=== PATIENT | male | born 1985 | race African-American/Black ===

== ENCOUNTER 2020-06-29 03:27 | Inpatient (IN) | payer OTHER ==
[~2020-06-29] VITALS: Ht 167.6 cm; Wt 40.4 kg
--- NOTE | 2020-06-29 03:35 | NUR ---
TO ER BED 5 BIB EMS FROM [facility] C/O TACHYCARDIA 150'S. PT NONVERBAL, CHRONIC TRACHE ON RA 100%. PLACE PT ON CARDIAC MONITORING, CONTINUOUS POX. SKIN WARM, NONDIAPHORETIC. NOTED PT HR-152 SINUS TACHYCARDIA. PENDING ER MD CROWELL.
--- NOTE | 2020-06-29 03:36 | NUR ---
ER MD AT BEDSIDE TO EVAL PT WITH ORDERS RECEIVED.
--- NOTE | 2020-06-29 03:40 | NUR ---
Zak vega in [facility] - 06/29/20 at 0409 by BERNARDO STARTED SL 18G ON THE R HAND, BLOOD DRAWN AND SENT TO LAB.
--- NOTE | 2020-06-29 03:40 | NUR ---
STARTED SL 18G ON THE L HAND, BLOOD DRAWN AND SENT TO LAB.
[2020-06-29] MEDS ORDERED: IV NS 0.9% 1,000 ML BAG IV ONE (04:00)
[2020-06-29 04:21] LABS: BASOPHILS # (AUTO) 0.1 /CMM (0.0-0.2); BASOPHILS % (AUTO) 0.2 % (0.0-2.0); HEMATOCRIT 35 % (39-51); HEMOGLOBIN 10.8 g/dL (13.5-17.5); LYMPHOCYTES # (AUTO) 0.8 /CMM (0.8-4.8); LYMPHOCYTES % (AUTO) 2.6 % (20.0-44.0); MEAN CORPUSCULAR HGB CONC 31 g/dl (31.0-36.0); MEAN CORPUSCULAR VOLUME 82 fL (80-96); MONOCYTES # (AUTO) 0.9 /CMM (0.1-1.30); MONOCYTES % (AUTO) 3.2 % (2.0-12.0); NEUTROPHILS # (AUTO) 27.5 /CMM (1.8-8.9); PLATELET COUNT (AUTO) 768 /CMM (150-450); RED BLOOD CELL COUNT(AUTO) 4.22 MIL/uL (4.5-6.0); WHITE BLOOD COUNT (AUTO) 29.3 K/uL (4.3-11.0)
[2020-06-29 04:30] LABS: BILIRUBIN,URINE NEGATIVE (NEGATIVE); COLOR,URINE YELLOW (YELLOW); LEUKOCYTE ESTERASE ,URINE MODERATE (NEGATIVE); NITRITE, URINE POSITIVE (NEGATIVE); PROTEIN,URINE >=300 mg/dl (NEGATIVE); UGLUCOSE NEGATIVE (NEGATIVE)
[2020-06-29 04:42] LABS: CALCIUM, SERUM 9.6 mg/dL (8.5-10.1); CARBON DIOXIDE 26 mmol/L (21-32); CHLORIDE 100 mmol/L (98-107); CREATININE 1.1 mg/dL (0.6-1.3); GLUCOSE 93 mg/dL (74-106); SODIUM SERUM 137 mmol/L (136-145); UREA NITROGEN, BLOOD 36 mg/dL (7-18)
--- NOTE | 2020-06-29 04:42 | NUR ---
called for covid antigen swab
[2020-06-29 04:55] LABS: ALANINE AMINOTRANSFERASE 22 U/L (12-78); ALBUMIN 2.4 g/dL (3.4-5.0); ALKALINE PHOSPHATASE 179 U/L (46-116); ASPARTATE AMINOTRANSFERASE 23 U/L (15-37); B-TYPE NATRIURETIC PEPTIDE 309 PG/ML (0-125); BILIRUBIN,DIRECT 0.1 mg/dL (0.0-0.2); BILIRUBIN,TOTAL 0.4 mg/dL (0.2-1.0)
[2020-06-29 05:26] LABS: PH,URINE 8.5 (5.0-8.0)
[2020-06-29 05:28] LABS: BACTERIA,URINE Many /HPF (None Seen); SQUAMOUS EPITHELIAL CELL,UR Few /HPF (None Seen); TRIPLE PHOSPHATE CRYSTAL,UR Moderate /HPF (None Seen); WBC,URINE 21-50 /HPF (0-3)
[2020-06-29 05:29] LABS: URINE AMORPHOUS PHOSPHATES Moderate /HPF (None Seen)
--- NOTE | 2020-06-29 06:01 | NUR ---
CHUNG HAMILTON TALKING DR. MONACO REGARDING PT ADMISSION.
[2020-06-29] MEDS ORDERED: MORPHINE SULFATE INJ 2 MG/ML DISP.SYRIN IV PRN (07:00)
[2020-06-29] MEDS ORDERED: ONDANSETRON HCL/PF 4 MG/2 ML VIAL IVP PRN (07:00)
[2020-06-29] MEDS ORDERED: VANCOMYCIN 1 GM in IV D5W 250ml IV ONE (08:30)
[2020-06-29] MEDS ORDERED: ZOSYN IVPB 3.375 G in IV D5W 50ml IV ONE (08:30)
--- NOTE | 2020-06-29 08:53 | NUR ---
report given to jenaro wiley. awaiting transfer to floor.
[2020-06-29] MEDS ORDERED: IPRA12.9 IH (08:56)
[2020-06-29] MEDS ORDERED: CRAN3875 GT (08:56)
[2020-06-29] MEDS ORDERED: LEVE1000 GT (08:56)
[2020-06-29] MEDS ORDERED: DOCU-141 GT (08:56)
[2020-06-29] MEDS ORDERED: GLYC2TAB21 GT (08:56)
[2020-06-29] MEDS ORDERED: ACET325T53 GT (08:56)
[2020-06-29] MEDS ORDERED: DEXT15DR6 OP (08:56)
[2020-06-29] MEDS ORDERED: HEPA100D33 SQ (08:56)
[2020-06-29] MEDS ORDERED: AMIN887L GT (08:56)
[2020-06-29] MEDS ORDERED: OMEP20TA5 GT (08:56)
[2020-06-29] MEDS ORDERED: ASCO500C17 GT (08:56)
[2020-06-29] MEDS ORDERED: LACT-209 GT (08:56)
[2020-06-29] MEDS ORDERED: CHLO473M3 MM (08:56)
[2020-06-29] MEDS ORDERED: PANTOPRAZOLE 40 MG VIAL ONE (08:57)
[2020-06-29] MEDS ORDERED: PANTOPRAZOLE 40 MG VIAL IV SCH (09:00)
--- NOTE | 2020-06-29 09:15 | NUR ---
RECEIVED PATIENT IN BED. NO ACUTE DISTRESS NOTED. PATIENT OBTUNDED. PATIENT TRACH'D, BUT ONLY ON COOL AEROSOL, SATURATING WELL. PATIENT ON ENTRY LEVEL SALES CONSULTANT, ST NOTED WITH HR IN 170S. DR. ENAMORAOD CONTACTED, MADE AWARE. PATIENT TEMPERATURE 101, TYLENOL GIVEN. PATIENT FC INTACT, DRAINING TO GRAVITY. PATIENT G-TUBE INTACT, PATENT. PATIENT LAC #18 INTACT, PATENT. PATIENT SAFETY MEASURES MAINTAINED. WILL CONTINUE TO MONITOR. VS T 101, BP 107/52, HR 172, RR 24, O2 SATURATION 90%
[2020-06-29] MEDS: ACETAMINOPHEN 650 MG/20.3 ML UDC GT PRN (10:10)
[2020-06-29 10:13] VITALS: BP 107/52
[2020-06-29] MEDS ORDERED: Medication Not On Formulary EA (Omeprazole 20 MG) GT SCH (10:30)
[2020-06-29] MEDS: LEVETIRACETAM SOL (5 ML) 100 MG/ML UDC GT SCH ×2 (10:41→21:27)
[2020-06-29] MEDS: ENOXAPARIN SODIUM 40 MG/0.4 ML DISP.SYRIN SQ SCH (10:42)
[2020-06-29] MEDS ORDERED: ACETAMINOPHEN 650 MG/SUPP.RECT RC PRN (11:00)
[2020-06-29 12:00] VITALS: BP 103/56
[2020-06-29] MEDS: PIPERACILLIN /TAZOBACTAM 3.375 G in IV D5W 50 ML IV SCH ×2 (12:32→17:26)
[2020-06-29] MEDS: IV D5/ 0.9% NACL 1,000 ML IV PRN (12:32)
[2020-06-29] MEDS ORDERED: IV NS 0.9% 1,000 ML IV ONE (14:30)
[2020-06-29] MEDS ORDERED: POLYVINYL ALCOHOL 15 ML BOTTLE OP PRN (15:30)
--- NOTE | 2020-06-29 15:45 | NUR ---
PATIENT SBP 96 AFTER 500ML BOLUS. DUYEN MIRANDA NP NOTIFIED. ORDERED ANOTHER 500ML BOLUS. CURRENTLY RUNNING
--- NOTE | 2020-06-29 16:57 | NUR ---
PATIENT SBP IN LOW 80S. DUYEN MIRANDA NP NOTIFIED AND IN ROOM. ORDERED 500ML NS BOLUS. BOLUS RUNNING. WILL REEVALUATE AFTER BOLUS.
[2020-06-29 16:58] VITALS: BP 80/48
[2020-06-29] MEDS ORDERED: IV NS 0.9% 500 ML IV ONE ×3 (17:00→22:30)
[2020-06-29] MEDS ORDERED: FIXODENT DENTURE ADHESIVE TUBE MM SCH (17:00)
[2020-06-29] MEDS: PROSOURCE / PROSTAT (PYXIS) 30 ML UDC GT SCH ×2 (17:22→21:27)
[2020-06-29] MEDS: VANCOMYCIN 500 MG in IV D5W 100ml IV SCH (17:22)
[2020-06-29] MEDS: GLYCOPYRROLATE 1 MG TABLET GT SCH (17:26)
[2020-06-29] MEDS: CHLORHEXIDINE GLUCONATE 15 ML UDC MM SCH (17:26)
[2020-06-29] MEDS ORDERED: Medication Not On Formulary EA (Ipratropium Bromide (Atrovent Hfa) 1 PUFF) IH SCH (18:00)
[2020-06-29] MEDS ORDERED: MEROPENEM 500 MG in IV NS 0.9% 50 ML IV SCH (18:00)
[2020-06-29] MEDS: MEROPENEM 1 G in IV NS 0.9% 100 ML IV SCH (18:07)
--- NOTE | 2020-06-29 18:30 | NUR ---
PATIENT IN BED. NO ACUTE DISTRESS NOTED. PATIENT OBTUNDED. PATIENT TRACH'D, BUT ONLY ON COOL AEROSOL, SATURATING WELL. PATIENT ON GROUND CREWMAN, ST NOTED WITH HR IN 140S. PATIENT CURRENTLY AFEBRILE. PATIENT FC INTACT, DRAINING TO GRAVITY. PATIENT G-TUBE INTACT, PATENT. PATIENT AFSHAN MIDLINE, LAC #18 INTACT, PATENT. PATIENT SAFETY MEASURES MAINTAINED. WILL ENDORSE PLAN OF CARE TO ONCOMING SHIFT
[2020-06-29] MEDS ORDERED: LORAZEPAM INJ 2 MG/ML VIAL IV PRN (19:30)
--- NOTE | 2020-06-29 19:50 | NUR ---
RN NOTES PT FOR CT SCAN, PULLED OUT ATIVAN FROM PYXIS, TO BE GIVEN BEFORE CT SCAN WASTED 1MG WITH MICHAEL PIERCE. UNABLE TO GIVE ATIVAN DUE TO HYPOTENSION. CHARGE NURSE MADE AWARE. WILL WASTE MED.
[2020-06-29] MEDS: IPRATROPIUM NEB FS 0.5 MG/2.5 ML AMPUL.NEB NEB SCH (19:52)
[2020-06-29 20:00] VITALS: BP 82/58
--- NOTE | 2020-06-29 20:00 | NUR ---
RN NOTES RECEIVED PT WITH TRACH ON 5L. PT SINUS TACH WITH HR OF 140S. PER AM SHIFT NURSE, PTS HR WAS ON 170S AND DR ENAMORADO AWARE. ALSO AWARE OF LOW BP ON SBP 80S. NO DISTRESS NOTED. ON IVF D5NS AT 80 ML/HR. AFSHAN MIDLNE AND LH 18 PATENT AND INTACT, NO SIGNS OF INFILTRATION. ALL SAFETY MEASURES IMPLEMENTED PER PROTOCOL. WILL CONTINUE TO MONITOR.
--- NOTE | 2020-06-29 22:25 | NUR ---
[address] YI REGARDING PATIENT'S CURRENT CONDITION: LOW BP IN THE 80S, HR 140S SUSTAINED, PULLING OUT TRACH TUBE, AND UNABLE TO TAKE PATIENT TO CT SCAN DUE TO HYPOTENSION, WITH ORDERS MADE. ORDERS NOTED AND CARRIED OUT.
[2020-06-29] MEDS ORDERED: LORAZEPAM INJ 2 MG/ML VIAL IV ONE (22:45)
--- NOTE | 2020-06-29 23:00 | NUR ---
RN NOTES IVF D5NS INCREASED TO 100ML/HR. PER MD ORDER.
--- NOTE | 2020-06-29 23:22 | NUR ---
RN NOTES WASTED THE UNUSED ATIVAN. WITNESSED BY JOE VEGA RN.
[2020-06-30] VITALS (69 sets, daily range): BP systolic 73–140; BP diastolic 43–75
[2020-06-30] MEDS: ACETAMINOPHEN 650 MG/20.3 ML UDC GT PRN (00:01)
--- NOTE | 2020-06-30 00:01 | NUR ---
RN NOTE NOTED WITH ELEVATED TEMP. 101.6. TYLENOL 650 MG GIVEN ORDERED. COOLING MEASURES APPLIED. WILL CONTINUE TO MONITOR.
[2020-06-30] MEDS: VANCOMYCIN 500 MG in IV D5W 100ml IV SCH ×2 (00:58→09:19)
--- NOTE | 2020-06-30 01:00 | NUR ---
RN NOTE BLOOD CULTURE GRAM NEGATIVE QUITA. DR YI NOTIFIED. NO NEW ORDER MADE.
[2020-06-30] MEDS: IPRATROPIUM NEB FS 0.5 MG/2.5 ML AMPUL.NEB NEB SCH ×4 (01:54→19:47)
--- NOTE | 2020-06-30 02:15 | NUR ---
rn note body temp at 98.9 at this time.
--- NOTE | 2020-06-30 02:20 | NUR ---
0220 NOTED PATIENT WITH NO URINE OUTPUT IN DRAINAGE BAG, BLADDER SCAN DONE AND NOTED WITH 800-[address] YI PAGED AT THIS TIME.
[2020-06-30] MEDS ORDERED: IV NS 0.9% 500 ML IV ONE (02:30)
--- NOTE | 2020-06-30 02:30 | NUR ---
0230 DR. YI CALLED BACK AND WAS NOTIFIED THAT PATIENT'S BP REMAINS LOW IN THE 70S-80S WITH ORDER TO GIVE 500ML OF NS BOLUS ONCE, AND TO TRANSFER PATIENT TO ICU IF BP DOES NOT IMPROVE. HE WAS ALSO MADE AWARE OF PATIENT'S URINARY RETENTION WITH ORDER TO REMOVE OLD FC AND INSERT A NEW ONE. ORDER NOTED AND CARRIED OUT.
--- NOTE | 2020-06-30 04:35 | NUR ---
0435 DR. YI NOTIFIED THAT PATIENT'S BP REMAINS IN THE 70S-80S AFTER IV BOLUS OF NS 500ML WITH ORDER TO TRANSFER PATIENT TO ICU TO START ON PRESSOR FOR BP SUPPORT. ICU CHARGE NURSE GRACE MADE AWARE OF ORDER. BURR SANDER JENNIFER WAS ALSO NOTIFIED.
--- NOTE | 2020-06-30 04:48 | NUR ---
0448 OBTAINED AN ORDER FROM TO START PATIENT ON NEOSYNEPHRINE GTT PER PROTOCOL FOR BP SUPPORT.
[2020-06-30] MEDS ORDERED: PHENYLEPHRINE 10 MG/ML VIAL ONE (05:09)
--- NOTE | 2020-06-30 05:15 | NUR ---
0515 TRANSFERRED TO ICU ON ACLS PROTOCOL. NO SIGNS OF DISTRESS NOTED. ACCOMPANIED BY 2 RNS AND RT.
--- NOTE | 2020-06-30 05:20 | NUR ---
RN NOTES GAVE REPORT TO ICU NURSE GRACE FOR KARI.
--- NOTE | 2020-06-30 05:20 | NUR ---
RN/ICU-RECEIVED PT. FROM TELE1 BY BED PER ACLS PROTOCOL, ACCOMPANIED BY TD STAFF. NURSING FOCUS: ALTERED CARDIAC TISSUE PERFUSION R/T HYPOTENSION. ROUTINE ICU ADMISSION CARE INITIATED. PT. EYES OPEN, BUT NON -INTERACTIVE. W/ TRACH TO T PIECE 28%, SATS-100%. EKG ST W/ HR-132. BP-90/50. AFEBRILE. NO S/S OF PAIN OR SOB. PT. IS A FULL CODE. WILL MONITOR CLOSELY .
[2020-06-30] MEDS: PHENYLEPHRINE 100 MG in IV NS 0.9% 240 ML IV PRN ×2 (05:40→08:58)
--- NOTE | 2020-06-30 05:40 | NUR ---
RN/ICU-BP-73/45, HR-132. NEOSYNEPHRINE DRIP STARTED AT 0.5 MCG/KG/MIN. PER PROTOCOL. WILL TITRATE ACCORDINGLY TO KEEP SBP>90.
[2020-06-30] MEDS: MEROPENEM 1 G in IV NS 0.9% 100 ML IV SCH ×2 (05:57→18:05)
--- NOTE | 2020-06-30 06:00 | NUR ---
RN/ICU- PT. NOTED TO HAVE SACRAL AND LEFT BUTTOCK WD. SEE WOUND PHOTO AND SKIN PROBLEM FOR DETAILS. BOTH WDS. MEASURED.BOTH WOUNDS CLEANSED W/ NS, PACKED W/ KERLIX ROLL. COVERED W/ MEPILEX. PT. REPOSITIONED TO RIGHT SIDE, HEELS OFF LOADED .
[2020-06-30] MEDS: IV D5/ 0.9% NACL 1,000 ML IV PRN ×3 (06:02→23:48)
--- NOTE | 2020-06-30 06:05 | NUR ---
RN/ICU- URINE PER SHINE IS YELLOW W/ PUS LIKE, CREAMY SEDIMENTS, TOTAL OF 1700 ML .
--- NOTE | 2020-06-30 06:45 | NUR ---
RN/ICU- NOW NOTED URINE OUTPUT, BLOODY IN COLOR W/ WHITISH LIKE SEDIMENTS.WILL CONTINUE TO MONITOR.
--- NOTE | 2020-06-30 07:00 | NUR ---
RN/ICU- PT. STATUS UNCHANGED, CONTINUE TO BE ON NEOSYNEPHRINE DRIP PER PROTOCOL. LATEST BP-74/45, HR-128.REPORT GIVEN TO KARI KINCAID.
--- NOTE | 2020-06-30 07:10 | NUR ---
RN NOTES RECEIVED PT ON BED ,TRACH DEPENDENT , DOES NOT FOLLOW COMMAND, EYES ARE OPEN, ON 28% COOL AEROSOL, O2 SAT WNL, NO RESPIRATORY DISTRESS NOTED, ON TELE ST HR IN 120'S , SHINE DRAINING TO GRAVITY WITH LIGHT BLOODY URINE, IV SITES CLEAN, DRY AND INTACT, IVF D5NS AT 100CC/HR RUNNING , SR UP x3, CALL LIGHT WITHIN EASY REACH, BED LOCKED AND IN LOWEST POSITION, CONTINUE TO MONITOR
[2020-06-30 07:32] LABS: BASOPHILS % (AUTO) 0.1 % (0.0-2.0); EOSINOPHILS % (AUTO) 20.2 % (0.0-6.0); HEMATOCRIT 26 % (39-51); HEMOGLOBIN 7.2 g/dL (13.5-17.5); LYMPHOCYTES % (AUTO) 2.4 % (20.0-44.0); MEAN CORPUSCULAR HGB CONC 28 g/dl (31.0-36.0); MEAN CORPUSCULAR VOLUME 91 fL (80-96); MONOCYTES # (AUTO) 1.2 /CMM (0.1-1.30); MONOCYTES % (AUTO) 2.8 % (2.0-12.0); NEUTROPHILS # (AUTO) 31.3 /CMM (1.8-8.9); NEUTROPHILS % (AUTO) 74.5 % (43.0-81.0); PLATELET COUNT (AUTO) 419 /CMM (150-450); RED BLOOD CELL COUNT(AUTO) 2.92 MIL/uL (4.5-6.0)
[2020-06-30 07:48] LABS: CALCIUM, SERUM 7.6 mg/dL (8.5-10.1); CARBON DIOXIDE 20 mmol/L (21-32); CHLORIDE 108 mmol/L (98-107); GLUCOSE 70 mg/dL (74-106); MAGNESIUM 1.8 mg/dL (1.8-2.4); PHOSPHORUS 4.5 mg/dL (2.5-4.9); POTASSIUM 4.1 mmol/L (3.5-5.1); SODIUM SERUM 140 mmol/L (136-145); UREA NITROGEN, BLOOD 47 mg/dL (7-18)
[2020-06-30 07:58] LABS: WHITE BLOOD COUNT (AUTO) 42.1 K/uL (4.3-11.0)
[2020-06-30] MEDS ORDERED: Z GUARD REMEDY 2 OZ OINT TP PRN (08:00)
[2020-06-30] MEDS ORDERED: HYDROGEL DRESSING 90 GM TUBE TP PRN (08:00)
--- NOTE | 2020-06-30 08:01 | NUR ---
WOUND CARE CONSULT: PT PRESENTS WITH RASH/OPEN SKIN TO PENIS AND SCROTUM, DISCOLORATION TO FEET AND SOME OPEN AREAS TO LEFT FOOT, AND STAGE 4 ULCERS TO SACRUM AND LEFT THIGH, PRESENT ON ADMISSION. RECOMMEND DPM AND SURGICAL CONSULTS. DR BAIRD AND DR DONTA DELEON NOTIFIED OF CONSULT REQUESTS. PT IS ON THOMAS ISOFLEX LOW AIRLOSS BED. RECOMMENDATIONS MADE FOR WOUND CARE AND SKIN PROTECTION. DISCUSSED WITH NURSING STAFF. MD IN AGREEMENT WITH PLAN OF CARE. Addendum: 06/30/20 at 0803 by SANDRO HYLTON WNDNU Amended: Links added.
[2020-06-30] MEDS: LEVETIRACETAM SOL (5 ML) 100 MG/ML UDC GT SCH ×2 (08:38→20:46)
[2020-06-30] MEDS: ASCORBIC ACID 500 MG TABLET GT SCH (08:38)
[2020-06-30] MEDS: GLYCOPYRROLATE 1 MG TABLET GT SCH ×2 (08:39→16:08)
[2020-06-30] MEDS: DOCUSATE SODIUM LIQ 100 MG/10 ML UDC GT SCH (08:39)
[2020-06-30] MEDS: CHLORHEXIDINE GLUCONATE 15 ML UDC MM SCH ×2 (08:39→16:08)
[2020-06-30] MEDS: PANTOPRAZOLE 40 MG/PACK PACK GT SCH (08:41)
[2020-06-30] MEDS: PROSOURCE / PROSTAT (PYXIS) 30 ML UDC GT SCH ×4 (08:44→20:46)
[2020-06-30] MEDS: HYDROCORTISONE SOD SUCCINATE 100 MG/2 ML VIAL IV SCH ×3 (08:48→20:46)
[2020-06-30 08:59] LABS: ALANINE AMINOTRANSFERASE 20 U/L (12-78); ALBUMIN 1.5 g/dL (3.4-5.0); ALKALINE PHOSPHATASE 158 U/L (46-116); ASPARTATE AMINOTRANSFERASE 70 U/L (15-37); BILIRUBIN,TOTAL 0.4 mg/dL (0.2-1.0); TOTAL PROTEIN, SERUM 6.2 g/dL (6.4-8.2)
[2020-06-30] MEDS: ENOXAPARIN SODIUM 40 MG/0.4 ML DISP.SYRIN SQ SCH (09:00)
--- NOTE | 2020-06-30 09:00 | NUR ---
RN NOTES LOVENOX HELD DUE TO BLOOD IN THE URINE PER MD ORDER
--- NOTE | 2020-06-30 09:00 | NUR ---
RN NOTES DR EASTON LOBATO REGARDING HEMATURIA. CONTINUE TO MONITOR .
[2020-06-30 10:21] LABS: BILIRUBIN,URINE MODERATE (NEGATIVE); COLOR,URINE RED (YELLOW); LEUKOCYTE ESTERASE ,URINE LARGE (NEGATIVE); NITRITE, URINE POSITIVE (NEGATIVE); PH,URINE 6.5 (5.0-8.0); PROTEIN,URINE >=300 mg/dl (NEGATIVE); UGLUCOSE NEGATIVE (NEGATIVE)
[2020-06-30] MEDS: Z GUARD REMEDY 2 OZ OINT TP SCH (10:28)
[2020-06-30] MEDS: CLOTRIMAZOLE 1% 15 GM TUBE TP SCH ×2 (10:29→16:09)
[2020-06-30] MEDS: HYDROGEL DRESSING 90 GM TUBE TP SCH (10:29)
[2020-06-30 10:58] LABS: CREATININE, URINE 36.4 MG/DL (30.0-125.0)
[2020-06-30] MEDS: JEVITY 1.2 CAL 1,000 ML BOTTLE GT PRN (11:45)
[2020-06-30 11:54] LABS: RBC,URINE TOO NUMEROUS TO COUN /HPF (0-2); WBC,URINE 51-80 /HPF (0-3)
[2020-06-30 11:56] LABS: BACTERIA,URINE Moderate /HPF (None Seen)
[2020-06-30 11:57] LABS: SQUAMOUS EPITHELIAL CELL,UR Few /HPF (None Seen)
[2020-06-30 12:03] LABS: BAND % (MANUAL) 1 % (0.0-5.0); EOSINOPHILS % (MANUAL) 1 % (0-4); LYMPHOCYTES % (MANUAL) 4 % (16-48); MONOCYTES % (MANUAL) 1 % (0-11.0); NEUTROPHILS % (MANUAL) 93 (42-76)
[2020-06-30] MEDS: HEPARIN SODIUM, PORCINE 5000 UNITS/1 ML VIAL SQ SCH ×2 (12:30→20:48)
[2020-06-30 12:49] LABS: EOSINOPHIL,URINE Rare
[2020-06-30 13:28] LABS: THYROID STIMULATING HORMONE 2.859 uIU/mL (0.358-3.74)
[2020-06-30 13:41] LABS: ABG BASE EXCESS -2.2 mmol/L; ABG OXYGEN SATURATION 98.3 % (92.0-98.5); ABG PCO2 28.7 mmHg (35.0-45.0); ABG PH 7.479 (7.350-7.450); ABG PO2 128.2 mmHg (75.0-100.0); AaDO2 37.6 mmHg; COHb 0.3 % (0.5-1.5); MetHb 0.8 % (0.0-1.5); O2Hb 97.2 % (94.0-97.0); SITE, ABG Right Radial; VENT MODE, BG C/A @28%
--- NOTE | 2020-06-30 14:00 | NUR ---
RN NOTES CT OF HEAD ON HOLD AT THIS TIME PER DR MCCORMACK ORDER.
[2020-06-30] MEDS ORDERED: DOSING PER PHARMACY-AMIKACI IV XX PRN (16:00)
--- NOTE | 2020-06-30 16:26 | NUR ---
RECEIVED PATIENT ON COOL AEROSOL @28% /5L. AIRWAY PATENT AND SECURE. Q2 CHECK, SUCTION PRN. HAS LARGE AMOUNTS OF THICK, YELLOW SECRETIONS. SATURATIONS AT 100%. AMBU BAG AND EMERGENCY TRACH AT THE BEDSIDE.
[2020-06-30] MEDS: AMIKACIN 350 MG in IV D5W 100 ML IV SCH (16:43)
--- NOTE | 2020-06-30 18:51 | NUR ---
RN NOTES PT RECEIVING ONE UNIT OF PRBC, VSS STABLE, NO REACTION NOTED, TOLERAING COOL AEROSOL AT 28% WELL, NO SOB NOTED, TRACH CARE DONE PRN , TF AT 40CC/HR RUNNING , NO RESIDUAL NOTED, R UPPER ARM MIDLINE SITE CLEAN, DRY AND INTACT, SLIGHT REDNESS NOTED ON L HAND IV SITE, IV SITE D/MICHELE. SHINE DRAINING TO GRAVITY WITH BLOODY URINE, SR UP x3, CALL LIGHT WITHIN EASY REACH, BED LOCKED AND IN LOWEST POSITION, WILL ENDORSE TO BELT GLASS SANDER NURSE FOR CONTINUITY OF CARE .
[2020-06-30] MEDS: MUPIROCIN OINT 2% 22 GM TUBE NS SCH (20:47)
[2020-06-30] MEDS: LINEZOLID RTU BAG 600 MG in PREMIX 1 EA IV SCH (20:47)
[2020-06-30] MEDS ORDERED: VANCOMYCIN 500 MG in IV D5W 100ml IV SCH (21:00)
--- NOTE | 2020-06-30 22:26 | NUR ---
FOLDER MACHINE ADJUSTER: RELAYED CORTISOL LEVEL=95.[address] KD CORONADO NO NEW ORDER.
[2020-07-01] VITALS (40 sets, daily range): BP systolic 96–138; BP diastolic 55–92
[2020-07-01] MEDS: IPRATROPIUM NEB FS 0.5 MG/2.5 ML AMPUL.NEB NEB SCH ×4 (02:10→19:49)
[2020-07-01 04:53] LABS: BASOPHILS % (AUTO) 0.1 % (0.0-2.0); EOSINOPHILS % (AUTO) 1.1 % (0.0-6.0); HEMATOCRIT 26 % (39-51); HEMOGLOBIN 8.1 g/dL (13.5-17.5); LYMPHOCYTES # (AUTO) 0.6 /CMM (0.8-4.8); MEAN CORPUSCULAR HGB CONC 31 g/dl (31.0-36.0); MEAN CORPUSCULAR VOLUME 82 fL (80-96); MONOCYTES # (AUTO) 0.6 /CMM (0.1-1.30); MONOCYTES % (AUTO) 1.8 % (2.0-12.0); NEUTROPHILS # (AUTO) 30.1 /CMM (1.8-8.9); PLATELET COUNT (AUTO) 341 /CMM (150-450); RED BLOOD CELL COUNT(AUTO) 3.15 MIL/uL (4.5-6.0)
[2020-07-01] MEDS: HYDROCORTISONE SOD SUCCINATE 100 MG/2 ML VIAL IV SCH ×3 (04:57→21:37)
[2020-07-01] MEDS: MEROPENEM 1 G in IV NS 0.9% 100 ML IV SCH ×2 (05:07→17:36)
[2020-07-01 05:17] LABS: CALCIUM, SERUM 8.1 mg/dL (8.5-10.1); CREATININE 0.6 mg/dL (0.6-1.3); MAGNESIUM 2.1 mg/dL (1.8-2.4); PHOSPHORUS 1.7 mg/dL (2.5-4.9)
[2020-07-01 05:23] LABS: WHITE BLOOD COUNT (AUTO) 31.7 K/uL (4.3-11.0)
[2020-07-01 05:39] LABS: POTASSIUM 2.4 mmol/L (3.5-5.1)
[2020-07-01 06:07] LABS: BAND % (MANUAL) 3 % (0.0-5.0); LYMPHOCYTES % (MANUAL) 7 % (16-48); MONOCYTES % (MANUAL) 1 % (0-11.0); NEUTROPHILS % (MANUAL) 89 (42-76)
--- NOTE | 2020-07-01 06:10 | NUR ---
EXECUTIVE COMPENSATION ANALYST: NOTIFIED DR. YI OF K=2.4, LACTIC=2.3, PHOSPHORUS=1.7, STILL HAVING HEMATURIA. WBC TRENDING DOWN AT 31.7. STILL OFF PHENYLEPHRINE. AFEBRILE. ST ON SMALL ENGINE MECHANIC. AWAITING ORDERS. RT. WRIST RESTRAINTS IN PLACE FOR TRYING TO PULL TUBINGS. SKIN AND CIRCULATION WNL. SPUTUM COLLECTED. STILL AT 28% FI02 ON T-PIECE WT NO ACUTE DISTRESS. NO STOOL SPECIMEN FOR 0.B. COLLECTED AT THIS TIME. GT FEEDING AT MAX. GOAL RATE AND TOLERATED WELL. SAFETY PRECAUTION NOTED AT ALL TIMES.
[2020-07-01 06:36] LABS: MAGNESIUM 2.1 mg/dL (1.8-2.4); PHOSPHORUS 1.7 mg/dL (2.5-4.9)
--- NOTE | 2020-07-01 06:57 | NUR ---
RIB KNITTER: STILL AWAITING FOR MD ORDERS RE CRITICAL LAB RESULTS. NO SIGNIFICANT KARI. VS WITHIN BASELINE. WILL ENDORSE TO DAY SHIFT FOR CONTINUITY OF CARE.
--- NOTE | 2020-07-01 07:00 | NUR ---
RN NOTES RECEIVED PT ON BED ,TRACH DEPENDENT , DOES NOT FOLLOW COMMAND, EYES ARE OPEN, ON 28% COOL AEROSOL, O2 SAT WNL, NO RESPIRATORY DISTRESS NOTED, ON TELE ST HR IN 100'S , SHINE DRAINING TO GRAVITY WITH LIGHT BLOODY URINE, IV SITES CLEAN, DRY AND INTACT, SR UP x3, CALL LIGHT WITHIN EASY REACH, BED LOCKED AND IN LOWEST POSITION, CONTINUE TO MONITOR.
[2020-07-01] MEDS: LEVETIRACETAM SOL (5 ML) 100 MG/ML UDC GT SCH ×2 (08:19→21:37)
[2020-07-01] MEDS: PANTOPRAZOLE 40 MG/PACK PACK GT SCH (08:19)
[2020-07-01] MEDS: LINEZOLID RTU BAG 600 MG in PREMIX 1 EA IV SCH ×2 (08:19→21:37)
[2020-07-01] MEDS: GLYCOPYRROLATE 1 MG TABLET GT SCH ×2 (08:19→16:18)
[2020-07-01] MEDS: ASCORBIC ACID 500 MG TABLET GT SCH (08:19)
[2020-07-01] MEDS: DOCUSATE SODIUM LIQ 100 MG/10 ML UDC GT SCH (08:19)
[2020-07-01] MEDS: CHLORHEXIDINE GLUCONATE 15 ML UDC MM SCH ×2 (08:19→16:18)
[2020-07-01] MEDS: HEPARIN SODIUM, PORCINE 5000 UNITS/1 ML VIAL SQ SCH ×2 (08:19→21:00)
[2020-07-01] MEDS: Z GUARD REMEDY 2 OZ OINT TP SCH (08:20)
[2020-07-01] MEDS: HYDROGEL DRESSING 90 GM TUBE TP SCH (08:20)
[2020-07-01] MEDS: CLOTRIMAZOLE 1% 15 GM TUBE TP SCH ×2 (08:20→16:18)
[2020-07-01] MEDS: MUPIROCIN OINT 2% 22 GM TUBE NS SCH ×2 (08:21→21:38)
[2020-07-01] MEDS: PROSOURCE / PROSTAT (PYXIS) 30 ML UDC GT SCH ×4 (08:21→21:39)
--- NOTE | 2020-07-01 09:00 | NUR ---
RN NOTES DR MCCORMACK NOTIFIED REGARDING K=2.3, NEW ORDER RECEIVED .
[2020-07-01 09:13] LABS: CALCIUM, SERUM 8.3 mg/dL (8.5-10.1); CREATININE 0.6 mg/dL (0.6-1.3)
[2020-07-01 09:15] LABS: POTASSIUM 2.3 mmol/L (3.5-5.1)
[2020-07-01 09:17] LABS: PHOSPHORUS 1.8 mg/dL (2.5-4.9)
[2020-07-01] MEDS: POTASSIUM CHLORIDE 20 MEQ POWDER PACKET NG SCH ×5 (09:23→13:47)
[2020-07-01] MEDS ORDERED: POTASSIUM PHOSPHATE MM 15 MMOL in IV NS 0.9% 250 ML IV SCH (09:30)
[2020-07-01] MEDS: POTASSIUM PHOSPHATE MM 7.5 MMOL in IV NS 0.9% 100 ML IV SCH ×2 (10:05→13:47)
[2020-07-01] MEDS: JEVITY 1.2 CAL 1,000 ML BOTTLE GT PRN (12:45)
[2020-07-01] MEDS: IV D5W 1,000 ML IV PRN (13:54)
--- NOTE | 2020-07-01 14:00 | NUR ---
RN NOTES TECHNICAL SUPPORT CONSULTANT NOITFED REGARDING HEMATURIA . CONTINUE TO MONITOR .
[2020-07-01] MEDS: AMIKACIN 350 MG in IV D5W 100 ML IV SCH (16:51)
[2020-07-01 18:20] LABS: CALCIUM, SERUM 8.3 mg/dL (8.5-10.1); CREATININE 0.8 mg/dL (0.6-1.3); POTASSIUM 4.6 mmol/L (3.5-5.1)
--- NOTE | 2020-07-01 18:43 | NUR ---
RN NOTES NO SIGNIFICANT CHANGES NOTED ON THIS SHIFT , TOLERAING COOL AEROSOL AT 28% WELL, NO SOB NOTED, TRACH CARE DONE PRN , TF AT 45CC/HR RUNNING , NO RESIDUAL NOTED, R UPPER ARM MIDLINE SITE CLEAN, DRY AND INTACT. SHINE DRAINING TO GRAVITY WITH DARK BLOODY URINE, SR UP x3, CALL LIGHT WITHIN EASY REACH, BED LOCKED AND IN LOWEST POSITION, WILL ENDORSE TO FLOOR WORKER NURSE FOR CONTINUITY OF CARE .
--- NOTE | 2020-07-01 19:00 | NUR ---
Received patient with tracheostomy with trache collar O2 28 %, not in any distress,breathing regular,non labored. Eyes open ,grimaces and withdraws to pain,+ cough but with flat affect,Left side (upper and lower extremity) contracted. g tube with on going tube feeding ,Aspiration Precaution observed. Midline @ AFSHAN, intact.
--- NOTE | 2020-07-01 19:49 | NUR ---
RCVD PT ON COOL AEROSOL 28%, 5L . SX DONE. Q6 BREATHING TX DONE PER DR'S ORDER. NO ADVERSE REACTION NOTED. NO RESPIRATORY DISTRESS NOTED AT THIS TIME. WILL CONTINUE TO MONITOR T/O SHIFT.
--- NOTE | 2020-07-01 21:00 | NUR ---
heparin Sq held ,urine is hematuric
[2020-07-02] VITALS (37 sets, daily range): BP systolic 110–133; BP diastolic 71–94
--- NOTE | 2020-07-02 | NUR ---
No change in status,stable,not in any distress,Afebrile
[2020-07-02] MEDS: IPRATROPIUM NEB FS 0.5 MG/2.5 ML AMPUL.NEB NEB SCH ×4 (01:26→20:05)
--- NOTE | 2020-07-02 04:00 | NUR ---
Remains stable,not in any distress,breathing regular and non labored,remains afebrile. Urine less hematuric,more tea colored.
[2020-07-02] MEDS: IV D5W 1,000 ML IV PRN ×2 (04:29→17:39)
[2020-07-02] MEDS: HYDROCORTISONE SOD SUCCINATE 100 MG/2 ML VIAL IV SCH ×3 (04:30→21:05)
[2020-07-02 04:45] LABS: BASOPHILS % (AUTO) 0.1 % (0.0-2.0); HEMATOCRIT 26 % (39-51); HEMOGLOBIN 8.1 g/dL (13.5-17.5); LYMPHOCYTES # (AUTO) 1.1 /CMM (0.8-4.8); LYMPHOCYTES % (AUTO) 5.5 % (20.0-44.0); MEAN CORPUSCULAR HGB CONC 31 g/dl (31.0-36.0); MEAN CORPUSCULAR VOLUME 84 fL (80-96); MONOCYTES # (AUTO) 0.5 /CMM (0.1-1.30); MONOCYTES % (AUTO) 2.4 % (2.0-12.0); NEUTROPHILS # (AUTO) 18.7 /CMM (1.8-8.9); PLATELET COUNT (AUTO) 327 /CMM (150-450); RED BLOOD CELL COUNT(AUTO) 3.17 MIL/uL (4.5-6.0); WHITE BLOOD COUNT (AUTO) 20.3 K/uL (4.3-11.0)
[2020-07-02 04:59] LABS: OCCULT BLOOD STOOL NEGATIVE (NEGATIVE)
[2020-07-02 05:30] LABS: BILIRUBIN,TOTAL 0.2 mg/dL (0.2-1.0); CALCIUM, SERUM 8.8 mg/dL (8.5-10.1); CREATININE 0.6 mg/dL (0.6-1.3); POTASSIUM 3.8 mmol/L (3.5-5.1); TOTAL PROTEIN, SERUM 5.5 g/dL (6.4-8.2)
[2020-07-02] MEDS: MEROPENEM 1 G in IV NS 0.9% 100 ML IV SCH (05:39)
[2020-07-02 05:56] LABS: ALBUMIN 1.4 g/dL (3.4-5.0)
--- NOTE | 2020-07-02 08:00 | NUR ---
rn notes Received patient trachea dependent, no acute respiratory distress. On monitor car operator shows st-114. patient total care, suction, GT intact, residual 60cc, infusing Jevity 45 ml/hr intact. iv access on right midline infusing D5w at 100ml/hr. due medication administered, patient has contracted lef upper/ lower extremities. Neri draining via gravity seen bleeding. held hepain SQ. Assist turn and reposition q 2 hr. call Light within to reach. will monitoring.
[2020-07-02] MEDS: CHLORHEXIDINE GLUCONATE 15 ML UDC MM SCH ×2 (08:08→16:58)
[2020-07-02] MEDS: LEVETIRACETAM SOL (5 ML) 100 MG/ML UDC GT SCH ×2 (08:09→21:04)
[2020-07-02] MEDS: DOCUSATE SODIUM LIQ 100 MG/10 ML UDC GT SCH (08:09)
[2020-07-02] MEDS: GLYCOPYRROLATE 1 MG TABLET GT SCH ×2 (08:09→16:58)
[2020-07-02] MEDS: ASCORBIC ACID 500 MG TABLET GT SCH (08:09)
[2020-07-02] MEDS: PANTOPRAZOLE 40 MG/PACK PACK GT SCH (08:09)
[2020-07-02] MEDS: MUPIROCIN OINT 2% 22 GM TUBE NS SCH ×2 (08:12→21:48)
[2020-07-02] MEDS: PROSOURCE / PROSTAT (PYXIS) 30 ML UDC GT SCH ×4 (08:12→21:04)
[2020-07-02] MEDS: HYDROGEL DRESSING 90 GM TUBE TP SCH (08:13)
[2020-07-02] MEDS: CLOTRIMAZOLE 1% 15 GM TUBE TP SCH ×2 (08:13→17:00)
[2020-07-02] MEDS: Z GUARD REMEDY 2 OZ OINT TP SCH (08:14)
[2020-07-02] MEDS: LINEZOLID RTU BAG 600 MG in PREMIX 1 EA IV SCH ×2 (08:35→21:39)
[2020-07-02] MEDS: NEUTRA PHOS 1 POWD.PACKET PO SCH ×2 (08:39→16:58)
[2020-07-02] MEDS: HEPARIN SODIUM, PORCINE 5000 UNITS/1 ML VIAL SQ SCH ×2 (09:00→21:00)
[2020-07-02] MEDS ORDERED: AMIKACIN 300 MG in IV D5W 100 ML IV SCH (09:00)
[2020-07-02 09:16] LABS: PTH, INTACT 31 pg/mL (15-65)
[2020-07-02] MEDS: PIPERACILLIN /TAZOBACTAM 3.375 G in IV D5W 50 ML IV SCH ×3 (12:06→23:37)
[2020-07-02] MEDS: JEVITY 1.2 CAL 1,000 ML BOTTLE GT PRN (12:30)
--- NOTE | 2020-07-02 14:10 | NUR ---
rn notes collected stool OB x2, assist turn and reposition q2 hr, patient will transfer paula/tele unit, waiting for bed.
[2020-07-02 16:21] LABS: OCCULT BLOOD STOOL NEGATIVE (NEGATIVE)
--- NOTE | 2020-07-02 18:45 | NUR ---
RN NOTES PATIENT TRANSFERRED TELE UNIT ROOM 308 BED B, STABLE, NO ACUTE RESPIRATORY DISTRES, V/SS. REPORT GIVEN RN FOLLOW UP PLAN OF CARE.
--- NOTE | 2020-07-02 19:50 | NUR ---
RN OPENING NOTES PT RECEIVED IN BED. PT IS NON VERBAL, ABLE TO OPEN EYES. PT IS ON 5L OF OXYGEN VIA TPIECE,TOLERATING WELL. NO SOB OR RESP DISTRESS NOTED AT THIS TIME. BREATHING IS EVEN AND UNLABORED. PT ON TELE MONITORING ON TELE MONITORING PRESENTS WITH NSR WITH OCCASIONAL PVCS, HEART RATE OF 69 NOTED AT THIS TIME. PT HAS GTUBE PRESENT, AUSCULTATED TO CONFIRM PLACEMENT, RESIDUAL OF 5 CC NOTED, FLUSHED. GT FEEDING RUNNING AT 45ML/HR ORDERED. PT HAS AFSHAN MIDLINE, INTACT FLUSHED ASEPTICALLY WITH GOOD BLOOD RETURN. PT HAS SHINE CATH DRAINING VIA GRAVITY, HEMATURIA NOTED, PRESENT WITH PT HX. UROLOGIST BRIONNA AWARE. SAFETY MEASURES IN PLACE. HOB ELEVATED. SIDE RAILS UP X 3. BED LOCKED IN LOWEST POSITION. WILL CONT TO MONITOR CLOSELY.
--- NOTE | 2020-07-02 20:45 | NUR ---
NON ADMIN OF HEPARIN DUE TO HEMATURIA PRESENT
[2020-07-03] VITALS: BP 114/76
[2020-07-03] MEDS: IPRATROPIUM NEB FS 0.5 MG/2.5 ML AMPUL.NEB NEB SCH ×4 (01:28→20:26)
[2020-07-03 03:29] LABS: OCCULT BLOOD STOOL NEGATIVE (NEGATIVE)
[2020-07-03 04:00] VITALS: BP 129/82
[2020-07-03] MEDS: PIPERACILLIN /TAZOBACTAM 3.375 G in IV D5W 50 ML IV SCH ×3 (05:01→17:01)
[2020-07-03] MEDS: HYDROCORTISONE SOD SUCCINATE 100 MG/2 ML VIAL IV SCH ×3 (05:04→21:44)
[2020-07-03] MEDS: IV D5W 1,000 ML IV PRN ×2 (05:26→22:03)
[2020-07-03 06:23] LABS: BASOPHILS % (AUTO) 0.2 % (0.0-2.0); EOSINOPHILS % (AUTO) 0.1 % (0.0-6.0); HEMATOCRIT 27 % (39-51); HEMOGLOBIN 8.3 g/dL (13.5-17.5); LYMPHOCYTES # (AUTO) 1.7 /CMM (0.8-4.8); LYMPHOCYTES % (AUTO) 12.4 % (20.0-44.0); MEAN CORPUSCULAR HGB CONC 31 g/dl (31.0-36.0); MEAN CORPUSCULAR VOLUME 82 fL (80-96); MONOCYTES # (AUTO) 0.7 /CMM (0.1-1.30); MONOCYTES % (AUTO) 5.4 % (2.0-12.0); NEUTROPHILS % (AUTO) 81.9 % (43.0-81.0); PLATELET COUNT (AUTO) 263 /CMM (150-450); RED BLOOD CELL COUNT(AUTO) 3.27 MIL/uL (4.5-6.0); WHITE BLOOD COUNT (AUTO) 13.5 K/uL (4.3-11.0)
[2020-07-03 06:34] LABS: CALCIUM, SERUM 8.2 mg/dL (8.5-10.1); CREATININE 0.6 mg/dL (0.6-1.3); MAGNESIUM 1.9 mg/dL (1.8-2.4); POTASSIUM 3.1 mmol/L (3.5-5.1)
--- NOTE | 2020-07-03 07:05 | NUR ---
CANDLE POURER OPENING NOTE RECEIVED PATIENT IN BED. NON VERBAL, OPENS EYES. CURRENTLY ON T-PIECE AT 5 LPM. NO SOB NOTED. IN NO APPARENT DISTRESS. TELE READING OF SR 72. GTF JEVITY RUNNING AT 45 ML/HR. IV ACCESS ON AFSHAN MIDLINE, INTACT, D5W RUNNING AT 100 ML/HR. SHINE CATHETER IN PLACE, DRAINING YELLOW URINE. BOTH WRIST ON SOFT RESTRAINT, ASSESSED PER PROTOCOL. SAFETY MEASURES MAINTAINED. BED IN LOWEST POSITION, BRAKES LOCKED. SIDE RAILS UP X2. CALL LIGHT WITHIN REACH. WILL CONTINUE PLAN OF CARE. Addendum: 07/03/20 at 0756 by BRYANT HERNANDEZ RN RESTRAINT ON R WRIST ONLY
--- NOTE | 2020-07-03 07:17 | NUR ---
RN CLOSING NOTE PT REMAINS IN BED, NO SIGNIFICANT CHANGES THROUGHOUT SHIFT. STILL ON 5L O2 VIA TPIECE. NO SOB OR RESP DISTRESS NOTED. PT BREATHING EVEN AND UNLABORED. NO S/S OF DENIES PAIN. ALL DUE MEDICATIONS GIVEN. ALL NEEDS ATTENDED. PT HAD 2BM YELLOW SOFT FORMED. BED BATH DONE, WOUND TX DONE ORDERED. TURNED AND REPOSITIONED Q2H. SAFETY MEASURES IN PLACE. HOB ELEVATED. BED LOCKED IN LOWEST POSITION. SIDE RAIL UP X2, CALL LIGHT WITHIN REACH. ENDORSED TO DAY NURSE FOR CONTINUATION OF CARE.
[2020-07-03 08:13] VITALS: BP 118/78
[2020-07-03] MEDS: ASCORBIC ACID 500 MG TABLET GT SCH (08:41)
[2020-07-03] MEDS: DOCUSATE SODIUM LIQ 100 MG/10 ML UDC GT SCH (08:41)
[2020-07-03] MEDS: GLYCOPYRROLATE 1 MG TABLET GT SCH ×2 (08:41→16:29)
[2020-07-03] MEDS: PANTOPRAZOLE 40 MG/PACK PACK GT SCH (08:41)
[2020-07-03] MEDS: CHLORHEXIDINE GLUCONATE 15 ML UDC MM SCH ×2 (08:41→16:29)
[2020-07-03] MEDS: LEVETIRACETAM SOL (5 ML) 100 MG/ML UDC GT SCH ×2 (08:42→21:44)
[2020-07-03] MEDS: HEPARIN SODIUM, PORCINE 5000 UNITS/1 ML VIAL SQ SCH ×2 (08:43→21:46)
[2020-07-03] MEDS: MUPIROCIN OINT 2% 22 GM TUBE NS SCH ×2 (08:45→21:44)
[2020-07-03] MEDS: HYDROGEL DRESSING 90 GM TUBE TP SCH (08:46)
[2020-07-03] MEDS: CLOTRIMAZOLE 1% 15 GM TUBE TP SCH ×2 (08:46→16:29)
[2020-07-03] MEDS: Z GUARD REMEDY 2 OZ OINT TP SCH (08:46)
[2020-07-03] MEDS: PROSOURCE / PROSTAT (PYXIS) 30 ML UDC GT SCH ×3 (08:51→16:29)
[2020-07-03] MEDS: LINEZOLID RTU BAG 600 MG in PREMIX 1 EA IV SCH (08:52)
--- NOTE | 2020-07-03 08:53 | NUR ---
SPOKE TO KARI/BRYANT AT 08:00, HE WILL INFORM AFTER IRRIGATION IS DONE TO PROCEED W/ US BLADDER.
[2020-07-03] MEDS ORDERED: POTASSIUM CHLORIDE 20 MEQ POWDER PACKET GT SCH (09:30)
[2020-07-03 10:45] LABS: LYMPHOCYTES % (MANUAL) 12 % (16-48); MONOCYTES % (MANUAL) 4 % (0-11.0); NEUTROPHILS % (MANUAL) 84 (42-76)
[2020-07-03 12:06] LABS: *SPE A/G RATIO 0.5 (0.7-1.7); *SPE ALBUMIN 1.7 g/dL (2.9-4.4); *SPE ALPHA-1-GLOBULIN 0.4 g/dL (0.0-0.4); *SPE ALPHA-2-GLOBULIN 0.8 g/dL (0.4-1.0); *SPE BETA GLOBULIN 0.8 g/dL (0.7-1.3); *SPE GLOBULIN, TOTAL 3.3 g/dL (2.2-3.9); *SPE M-SPIKE Not Observed g/dL (Not Observed); *SPEGAMMA GLOBULIN 1.2 g/dL (0.4-1.8)
[2020-07-03] MEDS ORDERED: JEVITY 1.2 CAL 1,000 ML BOTTLE GT SCH (15:30)
[2020-07-03 15:54] VITALS: BP 123/76
--- NOTE | 2020-07-03 17:06 | NUR ---
FINANCIAL FOUNDATIONS ASSOCIATE NOTE CLARIFIED WITH DR WHITMAN'S THE RATE FOR JEVITY. INSTEAD OF 50 ML/HR, JUST STICK TO GOAL RATE 45 ML/HR.
--- NOTE | 2020-07-03 18:02 | NUR ---
MEAT CARRIER CLOSING NOTE PATIENT IN BED. NON VERBAL, OPENS EYES. ON T-PIECE AT 5 LPM. NO SOB NOTED. IN NO APPARENT DISTRESS. GTF JEVITY RUNNING AT 45 ML/HR. IV ACCESS ON AFSHAN MIDLINE, INTACT AND PATENT, D5W RUNNING AT 100 ML/HR. SHINE CATHETER IN PLACE, DRAINING YELLOW URINE, 520 CC OUTPUT. R WRIST ON SOFT RESTRAINT, ASSESSED PER PROTOCOL. ROUTINE MEDS WERE GIVEN ORDERED. WOUND TREATMENT ORDERED. SAFETY MEASURES MAINTAINED. BED IN LOWEST POSITION, BRAKES LOCKED. SIDE RAILS UP X2. CALL LIGHT WITHIN REACH. WILL ENDORSE CONTINUITY OF CARE TO ONCOMING SHIFT.
[2020-07-03 20:00] VITALS: BP 122/91
[2020-07-04] VITALS: BP 125/53
[2020-07-04] MEDS: PIPERACILLIN /TAZOBACTAM 3.375 G in IV D5W 50 ML IV SCH ×5 (00:16→23:42)
[2020-07-04] MEDS: IPRATROPIUM NEB FS 0.5 MG/2.5 ML AMPUL.NEB NEB SCH ×4 (00:54→20:07)
[2020-07-04 04:00] VITALS: BP 128/81
[2020-07-04] MEDS: HYDROCORTISONE SOD SUCCINATE 100 MG/2 ML VIAL IV SCH ×3 (05:45→20:16)
[2020-07-04 06:39] LABS: BASOPHILS % (AUTO) 0.1 % (0.0-2.0); EOSINOPHILS % (AUTO) 0.2 % (0.0-6.0); HEMATOCRIT 29 % (39-51); HEMOGLOBIN 8.9 g/dL (13.5-17.5); LYMPHOCYTES # (AUTO) 2.3 /CMM (0.8-4.8); MEAN CORPUSCULAR HGB CONC 31 g/dl (31.0-36.0); MEAN CORPUSCULAR VOLUME 81 fL (80-96); MONOCYTES % (AUTO) 7.3 % (2.0-12.0); NEUTROPHILS # (AUTO) 10.8 /CMM (1.8-8.9); NEUTROPHILS % (AUTO) 76.4 % (43.0-81.0); PLATELET COUNT (AUTO) 279 /CMM (150-450); RED BLOOD CELL COUNT(AUTO) 3.54 MIL/uL (4.5-6.0); WHITE BLOOD COUNT (AUTO) 14.1 K/uL (4.3-11.0)
[2020-07-04 06:50] LABS: CALCIUM, SERUM 7.7 mg/dL (8.5-10.1); CREATININE 0.5 mg/dL (0.6-1.3); MAGNESIUM 1.5 mg/dL (1.8-2.4)
[2020-07-04 07:29] LABS: POTASSIUM 2.5 mmol/L (3.5-5.1)
--- NOTE | 2020-07-04 07:57 | NUR ---
INORGANIC CHEMICAL TECHNICIAN OPENING NOTE PATIENT IN BED. NON VERBAL, OPENS EYES. ON T-PIECE AT 5 LPM. NO SOB NOTED. IN NO APPARENT DISTRESS. GTF JEVITY RUNNING AT 45 ML/HR. IV ACCESS ON AFSHAN MIDLINE, INTACT AND PATENT, D5W RUNNING AT 100 ML/HR. SHINE CATHETER IN PLACE, DRAINING YELLOW URINE, 520 CC OUTPUT. R WRIST ON SOFT RESTRAINT, ASSESSED PER PROTOCOL. ROUTINE MEDS WERE GIVEN ORDERED. WOUND TREATMENT ORDERED. SAFETY MEASURES MAINTAINED. BED IN LOWEST POSITION, BRAKES LOCKED. SIDE RAILS UP X2. CALL LIGHT WITHIN EASY REACH AND ANSWERED PROMPTLY
[2020-07-04 08:00] VITALS: BP 144/93
[2020-07-04] MEDS: CHLORHEXIDINE GLUCONATE 15 ML UDC MM SCH ×2 (08:23→17:32)
[2020-07-04] MEDS: LEVETIRACETAM SOL (5 ML) 100 MG/ML UDC GT SCH ×2 (08:23→20:22)
[2020-07-04] MEDS: PANTOPRAZOLE 40 MG/PACK PACK GT SCH (08:23)
[2020-07-04] MEDS: DOCUSATE SODIUM LIQ 100 MG/10 ML UDC GT SCH (08:23)
[2020-07-04] MEDS: GLYCOPYRROLATE 1 MG TABLET GT SCH ×2 (08:23→17:32)
[2020-07-04] MEDS: ASCORBIC ACID 500 MG TABLET GT SCH (08:23)
[2020-07-04] MEDS: HEPARIN SODIUM, PORCINE 5000 UNITS/1 ML VIAL SQ SCH ×2 (08:27→20:21)
--- NOTE | 2020-07-04 08:48 | NUR ---
CITY SUPERVISOR NOTES DR. WILLS ROUNDED, DISCUSSED POC, OBTAINED K+ REPLACEMENT
[2020-07-04] MEDS: PROSOURCE / PROSTAT (PYXIS) 30 ML UDC GT SCH ×2 (08:57→17:41)
[2020-07-04] MEDS: MUPIROCIN OINT 2% 22 GM TUBE NS SCH ×2 (08:58→20:23)
[2020-07-04] MEDS: Z GUARD REMEDY 2 OZ OINT TP SCH (08:58)
[2020-07-04] MEDS: HYDROGEL DRESSING 90 GM TUBE TP SCH (08:58)
[2020-07-04] MEDS: CLOTRIMAZOLE 1% 15 GM TUBE TP SCH ×2 (08:59→17:41)
[2020-07-04] MEDS ORDERED: MUPIROCIN OINT 2% 22 GM TUBE NS SCH (09:00)
[2020-07-04] MEDS: POTASSIUM CHLORIDE 20 MEQ POWDER PACKET NG SCH ×2 (10:12→11:11)
[2020-07-04] MEDS: Magnesium 1GM/D5W 100ML PREMIX 100 ML IV SCH ×2 (10:12→11:11)
[2020-07-04] MEDS: POTASSIUM CHLORIDE 20 MEQ POWDER PACKET GT SCH (12:56)
[2020-07-04 16:00] VITALS: BP 137/79
--- NOTE | 2020-07-04 18:15 | NUR ---
PAEDIATRIC PHYSIOTHERAPIST OPENING NOTE PATIENT IN BED. NON VERBAL, OPENS EYES. ON T-PIECE AT 5 LPM. NO SOB NOTED. IN NO APPARENT DISTRESS. GTF JEVITY RUNNING AT 45 ML/HR. IV ACCESS ON AFSHAN MIDLINE, INTACT AND PATENT, D5W RUNNING AT 100 ML/HR. SHINE CATHETER IN PLACE, DRAINING YELLOW URINE, 350 CC OUTPUT. R WRIST ON SOFT RESTRAINT, ASSESSED PER PROTOCOL. ROUTINE MEDS WERE GIVEN ORDERED. WOUND TREATMENT ORDERED. SAFETY MEASURES MAINTAINED. BED IN LOWEST POSITION, BRAKES LOCKED. SIDE RAILS UP X2. CALL LIGHT WITHIN EASY REACH AND ANSWERED PROMPTLY Addendum: 07/04/20 at 1816 by ELZA LANGFORD RN CLOSING
--- NOTE | 2020-07-04 19:00 | NUR ---
received in bed. Non Verbal eyes are following the nurse' HOB is elevated Peg feeding on going thapa drainage clear yellow. midline with clean dressing
[2020-07-04] MEDS: IV D5W 1,000 ML IV PRN (19:20)
[2020-07-04 20:21] VITALS: BP 127/83
[2020-07-04] MEDS: JEVITY 1.2 CAL 1,000 ML BOTTLE GT SCH (21:48)
[2020-07-05 00:14] VITALS: BP 127/83
[2020-07-05] MEDS: IPRATROPIUM NEB FS 0.5 MG/2.5 ML AMPUL.NEB NEB SCH ×4 (02:30→19:09)
--- NOTE | 2020-07-05 04:25 | NUR ---
ending notes: EYES OPEN NONVERBAL, RIGHT ARM WRIST RESTAINT ON D/T WHEN OFF HE REACJES FOR HIS PEG TUBE AND HE HAS A STRONG DOWELER, POTENTIAL TO PULL THE TUBE OUT OR HIS SHINE CATH. ASP PRECAUTIONS THIS 12 HOURS. ONE BROWN MUSHY STPPL INCONTINENT AFEBRILE KEPT CLEAN AND REPOSITIONED
[2020-07-05] MEDS: IV D5W 1,000 ML IV PRN ×2 (05:25→17:36)
[2020-07-05] MEDS: HYDROCORTISONE SOD SUCCINATE 100 MG/2 ML VIAL IV SCH ×3 (05:44→20:20)
[2020-07-05] MEDS: PIPERACILLIN /TAZOBACTAM 3.375 G in IV D5W 50 ML IV SCH ×4 (05:44→23:07)
[2020-07-05 07:34] LABS: CALCIUM, SERUM 8.9 mg/dL (8.5-10.1); CREATININE 0.5 mg/dL (0.6-1.3); PHOSPHORUS 3.2 mg/dL (2.5-4.9); POTASSIUM 3.7 mmol/L (3.5-5.1)
--- NOTE | 2020-07-05 07:40 | NUR ---
TAIL RIPPER OPENING NOTE PATIENT IN BED. NON VERBAL, OPENS EYES. ON T-PIECE AT 5 LPM. NO SOB NOTED. IN NO APPARENT DISTRESS. GTF JEVITY RUNNING AT 45 ML/HR. IV ACCESS ON AFSHAN MIDLINE, INTACT AND PATENT, D5W RUNNING AT 100 ML/HR. SHINE CATHETER IN PLACE, DRAINING YELLOW URINE. R WRIST ON SOFT RESTRAINT, ASSESSED PER PROTOCOL. ROUTINE MEDS WERE GIVEN ORDERED. WOUND TREATMENT ORDERED. SAFETY MEASURES MAINTAINED. BED IN LOWEST POSITION, BRAKES LOCKED. SIDE RAILS UP X2. CALL LIGHT WITHIN EASY REACH AND ANSWERED PROMPTLY
[2020-07-05 08:00] VITALS: BP 118/80
[2020-07-05] MEDS: PANTOPRAZOLE 40 MG/PACK PACK GT SCH (08:13)
[2020-07-05] MEDS: DOCUSATE SODIUM LIQ 100 MG/10 ML UDC GT SCH (08:13)
[2020-07-05] MEDS: PROSOURCE / PROSTAT (PYXIS) 30 ML UDC GT SCH ×2 (08:13→16:29)
[2020-07-05] MEDS: CHLORHEXIDINE GLUCONATE 15 ML UDC MM SCH ×2 (08:13→16:28)
[2020-07-05] MEDS: POTASSIUM CHLORIDE 20 MEQ POWDER PACKET GT SCH (08:13)
[2020-07-05] MEDS: LEVETIRACETAM SOL (5 ML) 100 MG/ML UDC GT SCH ×2 (08:13→20:19)
[2020-07-05] MEDS: CLOTRIMAZOLE 1% 15 GM TUBE TP SCH ×2 (08:14→16:29)
[2020-07-05] MEDS: GLYCOPYRROLATE 1 MG TABLET GT SCH ×2 (08:14→16:27)
[2020-07-05] MEDS: MUPIROCIN OINT 2% 22 GM TUBE NS SCH ×2 (08:14→20:30)
[2020-07-05] MEDS: ASCORBIC ACID 500 MG TABLET GT SCH (08:14)
[2020-07-05] MEDS: Z GUARD REMEDY 2 OZ OINT TP SCH (08:15)
[2020-07-05] MEDS: HYDROGEL DRESSING 90 GM TUBE TP SCH (08:15)
[2020-07-05] MEDS: HEPARIN SODIUM, PORCINE 5000 UNITS/1 ML VIAL SQ SCH ×2 (08:17→20:21)
[2020-07-05 09:53] LABS: BILIRUBIN,DIRECT 0.1 mg/dL (0.0-0.2); BILIRUBIN,TOTAL 0.4 mg/dL (0.2-1.0)
[2020-07-05 16:00] VITALS: BP 121/84
--- NOTE | 2020-07-05 18:07 | NUR ---
TELEPHONE SALES AGENT CLOSING NOTE PATIENT IN BED. NON VERBAL, OPENS EYES. ON T-PIECE AT 5 LPM. NO SOB NOTED. IN NO APPARENT DISTRESS. GTF JEVITY RUNNING AT 45 ML/HR. IV ACCESS ON AFSHAN MIDLINE, INTACT AND PATENT, D5W RUNNING AT 100 ML/HR. SHINE CATHETER IN PLACE, DRAINING YELLOW URINE. R WRIST ON SOFT RESTRAINT, ASSESSED PER PROTOCOL. ROUTINE MEDS WERE GIVEN ORDERED. WOUND TREATMENT ORDERED. SAFETY MEASURES MAINTAINED. BED IN LOWEST POSITION, BRAKES LOCKED. SIDE RAILS UP X2. CALL LIGHT WITHIN EASY REACH AND ANSWERED PROMPTLY
--- NOTE | 2020-07-05 19:35 | NUR ---
RECEIVED PT ON BED ASLEEP EASY TO WAKE UP OPEN EYES TO STIMULI, NON VERBAL ON TRACH O2 VIA TPIECE WITH SPO2 97% NO SIGN OF DISTRESS NO PAIN NOTED, HAVE AFSHAN MIDLINE PATENT AND FLUSHED WITH ONGOING D5W @ 100ML/HR INFUSING WELL, HAVE SHINE CATHETER ON PLACE WITH DRAINING YELLOW URINE VIA GRAVITY BED ON LOWEST POSITION AND LOCKED SIDE RAILS UP X2 CALL LIGHT WITHIN REACH WILL CONT TO MONITOR
[2020-07-05 20:00] VITALS: BP 119/77
[2020-07-06] MEDS: IPRATROPIUM NEB FS 0.5 MG/2.5 ML AMPUL.NEB NEB SCH ×4 (01:45→19:30)
[2020-07-06] MEDS: JEVITY 1.2 CAL 1,000 ML BOTTLE GT SCH (04:11)
[2020-07-06] MEDS: IV D5W 1,000 ML IV PRN ×2 (04:11→17:16)
[2020-07-06] MEDS: HYDROCORTISONE SOD SUCCINATE 100 MG/2 ML VIAL IV SCH ×3 (04:11→17:20)
[2020-07-06] MEDS: PIPERACILLIN /TAZOBACTAM 3.375 G in IV D5W 50 ML IV SCH ×4 (05:41→23:45)
--- NOTE | 2020-07-06 06:40 | NUR ---
PT ON BED ASLEEP, OPEN EYES TO STIMULI, STILL ON TRACH O2 5L VIA TPIECE SPO2 98% NO SIGNS OF ANY RESPIRATORY DISTRESS NOTED, NO PAIN NOTED, NO SIGNIFICANT CHANGES ON CONDITION NOTED ALL NEEDS ATTENDED, TRACH CARE AND WOUND TREATMENT RENDERED STILL ON RIGHT WRIST RESTRAINTS CIRCULATION WAS CHECKED REGULARLY BED ON LOWEST POSITION AND LOCKED SIDE RAILS UP X 2 CALL LIGHT WITHIN REACH WILL ENDORSED TO AM SHIFT NURSE
[2020-07-06 06:50] LABS: BASOPHILS % (AUTO) 0.1 % (0.0-2.0); EOSINOPHILS % (AUTO) 0.7 % (0.0-6.0); HEMATOCRIT 29 % (39-51); HEMOGLOBIN 9.2 g/dL (13.5-17.5); LYMPHOCYTES # (AUTO) 1.3 /CMM (0.8-4.8); MEAN CORPUSCULAR HGB CONC 32 g/dl (31.0-36.0); MEAN CORPUSCULAR VOLUME 81 fL (80-96); MONOCYTES # (AUTO) 0.9 /CMM (0.1-1.30); MONOCYTES % (AUTO) 7.5 % (2.0-12.0); NEUTROPHILS # (AUTO) 9.6 /CMM (1.8-8.9); NEUTROPHILS % (AUTO) 80.7 % (43.0-81.0); PLATELET COUNT (AUTO) 326 /CMM (150-450); RED BLOOD CELL COUNT(AUTO) 3.57 MIL/uL (4.5-6.0); WHITE BLOOD COUNT (AUTO) 11.9 K/uL (4.3-11.0)
[2020-07-06 07:13] LABS: CALCIUM, SERUM 8.1 mg/dL (8.5-10.1); CREATININE 0.5 mg/dL (0.6-1.3)
[2020-07-06 07:18] LABS: POTASSIUM 2.8 mmol/L (3.5-5.1)
--- NOTE | 2020-07-06 07:55 | NUR ---
MS RN OPENING NOTE PATIENT IS IN BED RESTING, PATIENT IS IN NO ACUTE DISTRESS. NO SOB NOTED. PATIENT IS ON TRACH, TOLERATING WELL WITH OXYGEN SATURATION OF 100%. PATIENT IS UNABLE TO AMBULATE NEED TO BE REPOSITIONED EVERY TWO HOURS. SAFETY PRECAUTIONS ARE ON. BED IN THE LOWEST POSITION WITH SIDE RAILS UP, CALL LIGHT WITHIN REACH, WILL CONTINUE TO MONITOR CLOSELY THROUGH OUT THE SHIFT.
[2020-07-06 08:00] VITALS: BP 123/70
[2020-07-06] MEDS ORDERED: POTASSIUM CHLORIDE 20 MEQ POWDER PACKET GT SCH (09:00)
[2020-07-06] MEDS ORDERED: POTASSIUM CHLORIDE 20 MEQ POWDER PACKET GT ONE (09:00)
[2020-07-06] MEDS: MUPIROCIN OINT 2% 22 GM TUBE NS SCH ×2 (09:40→21:00)
[2020-07-06] MEDS: Z GUARD REMEDY 2 OZ OINT TP SCH (09:41)
[2020-07-06] MEDS: LEVETIRACETAM SOL (5 ML) 100 MG/ML UDC GT SCH ×2 (09:42→21:01)
[2020-07-06] MEDS: CHLORHEXIDINE GLUCONATE 15 ML UDC MM SCH ×2 (09:42→17:20)
[2020-07-06] MEDS: CLOTRIMAZOLE 1% 15 GM TUBE TP SCH ×2 (09:42→17:18)
[2020-07-06] MEDS: DOCUSATE SODIUM LIQ 100 MG/10 ML UDC GT SCH (09:42)
[2020-07-06] MEDS: POTASSIUM CHLORIDE 20 MEQ POWDER PACKET GT SCH (09:43)
[2020-07-06] MEDS: HYDROGEL DRESSING 90 GM TUBE TP SCH (09:43)
[2020-07-06] MEDS: GLYCOPYRROLATE 1 MG TABLET GT SCH ×2 (09:43→17:20)
[2020-07-06] MEDS: PANTOPRAZOLE 40 MG/PACK PACK GT SCH (09:43)
[2020-07-06] MEDS: HEPARIN SODIUM, PORCINE 5000 UNITS/1 ML VIAL SQ SCH ×2 (09:47→21:02)
[2020-07-06] MEDS: PROSOURCE / PROSTAT (PYXIS) 30 ML UDC GT SCH ×2 (09:51→17:18)
[2020-07-06] MEDS: ASCORBIC ACID 500 MG TABLET GT SCH (09:51)
[2020-07-06 16:00] VITALS: BP 126/77
--- NOTE | 2020-07-06 19:30 | NUR ---
MS RN OPENING NOTE PATIENT IN BED AWAKE, PATIENT OPENS EYES TO VERBAL AND TACTILE STIMULI, NONVERBAL. PATIENT ON TRACH WITH O2 OF 5 LPM, TOLERATING WITH 100% O2 SATURATION. PATIENT DOES NOT PRESENT WITH ANY S/S OF RESPIRATORY DISTRESS. SOFT WRIST RESTRAINS ON RT WRIST TO PREVENT PATIENT FROM PULLING ON TUBES. SHINE CATHETER IN PLACE. SAFETY PRECAUTIONS IN PLACE" BED IN LOWEST POSITION, SIDE RAILS UP, BED ALARM ON. WILL MONITOR PATIENT THROUGHOUT THE SHIFT.
[2020-07-06 19:59] VITALS: BP 129/71
--- NOTE | 2020-07-06 19:59 | NUR ---
MS RN CLOSING NOTE PATIENT IS IN BED RESTING, PATIENT IS IN NO ACUTE DISTRESS. NO SOB NOTED. PATIENT IS ON TRACH, TOLERATING WELL WITH OXYGEN SATURATION OF 100%. PATIENT IS UNABLE TO AMBULATE NEED TO BE REPOSITIONED EVERY TWO HOURS. SAFETY PRECAUTIONS ARE ON. BED IN THE LOWEST POSITION WITH SIDE RAILS UP, CALL LIGHT WITHIN REACH. ENDORSE PATIENT TO AUTOMOBILE SEAT COVER INSTALLER NURSE FOR KARI.
[2020-07-06 23:03] VITALS: BP 129/71
[2020-07-07] MEDS: IPRATROPIUM NEB FS 0.5 MG/2.5 ML AMPUL.NEB NEB SCH ×4 (01:39→19:55)
[2020-07-07] MEDS: IV D5W 1,000 ML IV PRN ×2 (03:51→15:18)
[2020-07-07] MEDS: JEVITY 1.2 CAL 1,000 ML BOTTLE GT SCH (04:17)
[2020-07-07] MEDS: PIPERACILLIN /TAZOBACTAM 3.375 G in IV D5W 50 ML IV SCH ×3 (05:43→17:37)
--- NOTE | 2020-07-07 06:53 | NUR ---
MS RN CLOSING NOTE PATIENT IN BED EYES CLOSED, PATIENT OPENS EYES TO VERBAL AND TACTILE STIMULI, NONVERBAL. PATIENT ON TRACH WITH O2 OF 5 LPM, TOLERATING WITH 99% O2 SATURATION. PATIENT DOES NOT PRESENT WITH ANY S/S OF RESPIRATORY DISTRESS. SOFT WRIST RESTRAINS ON RT WRIST TO PREVENT PATIENT FROM PULLING ON TUBES. SHINE CATHETER IN PLACE. SAFETY PRECAUTIONS IN PLACE. BED IN LOWEST POSITION, SIDE RAILS UP, BED ALARM ON. GTUBE SITE CLEANED AND GAUZE CHANGED. ALL NEEDS MET AND ATTENDED. WILL ENDORSE TO DAY SHIFT NURSE FOR KARI.
--- NOTE | 2020-07-07 07:30 | NUR ---
MS RN OPENING NOTE PATIENT IN BED WITH EYES CLOSED, PATIENT OPENS EYES TO VERBAL AND TACTILE STIMULI, NONVERBAL. PATIENT ON TRACH WITH O2 OF 5 LPM. PATIENT DOES NOT PRESENT WITH ANY S/S OF RESPIRATORY DISTRESS. NO SIGNS OF PAIN LIKE FACIAL GRIMACING, CRYING, OR MOANING. GTUBE IN PLACE WITH JEVITY 1.2 RUNNING AT 45 ML/HR. SOFT WRIST RESTRAINS ON RT WRIST TO PREVENT PATIENT FROM PULLING ON TUBES. SHINE CATHETER IN PLACE DRAINING CLEAR, YELLOW URINE OUTPUT. SAFETY PRECAUTIONS IN PLACE BED IN LOWEST POSITION, SIDE RAILS UP, BED ALARM ON. WILL MONITOR PATIENT THROUGHOUT THE SHIFT.
[2020-07-07 07:59] VITALS: BP 116/75
[2020-07-07] MEDS: HYDROGEL DRESSING 90 GM TUBE TP SCH (08:00)
[2020-07-07] MEDS: CLOTRIMAZOLE 1% 15 GM TUBE TP SCH ×2 (08:00→16:26)
[2020-07-07] MEDS: MUPIROCIN OINT 2% 22 GM TUBE NS SCH ×2 (08:00→20:35)
[2020-07-07] MEDS: Z GUARD REMEDY 2 OZ OINT TP SCH (08:00)
[2020-07-07] MEDS: HYDROCORTISONE SOD SUCCINATE 100 MG/2 ML VIAL IV SCH ×2 (08:07→16:29)
[2020-07-07] MEDS: LEVETIRACETAM SOL (5 ML) 100 MG/ML UDC GT SCH ×2 (08:07→20:34)
[2020-07-07] MEDS: PANTOPRAZOLE 40 MG/PACK PACK GT SCH (08:07)
[2020-07-07] MEDS: CHLORHEXIDINE GLUCONATE 15 ML UDC MM SCH ×2 (08:08→16:29)
[2020-07-07] MEDS: POTASSIUM CHLORIDE 20 MEQ POWDER PACKET GT SCH (08:08)
[2020-07-07] MEDS: GLYCOPYRROLATE 1 MG TABLET GT SCH ×2 (08:08→16:29)
[2020-07-07] MEDS: DOCUSATE SODIUM LIQ 100 MG/10 ML UDC GT SCH (08:08)
[2020-07-07] MEDS: ASCORBIC ACID 500 MG TABLET GT SCH (08:08)
[2020-07-07] MEDS: HEPARIN SODIUM, PORCINE 5000 UNITS/1 ML VIAL SQ SCH (08:09)
[2020-07-07] MEDS: PROSOURCE / PROSTAT (PYXIS) 30 ML UDC GT SCH ×2 (08:09→16:29)
[2020-07-07 09:11] LABS: BASOPHILS # (AUTO) 0.1 /CMM (0.0-0.2); BASOPHILS % (AUTO) 0.7 % (0.0-2.0); EOSINOPHILS % (AUTO) 1.3 % (0.0-6.0); HEMATOCRIT 32 % (39-51); LYMPHOCYTES # (AUTO) 1.7 /CMM (0.8-4.8); MEAN CORPUSCULAR HGB CONC 31 g/dl (31.0-36.0); MEAN CORPUSCULAR VOLUME 83 fL (80-96); MONOCYTES # (AUTO) 0.8 /CMM (0.1-1.30); NEUTROPHILS # (AUTO) 9.1 /CMM (1.8-8.9); PLATELET COUNT (AUTO) 324 /CMM (150-450); RED BLOOD CELL COUNT(AUTO) 3.83 MIL/uL (4.5-6.0); WHITE BLOOD COUNT (AUTO) 11.8 K/uL (4.3-11.0)
[2020-07-07 09:39] LABS: CALCIUM, SERUM 8.7 mg/dL (8.5-10.1); CREATININE 0.4 mg/dL (0.6-1.3)
--- NOTE | 2020-07-07 10:09 | NUR ---
MS RN NOTES GOT A CALL FROM LAB AT [phone] REGARDING CRITICAL LAB VALUE OF LACTIC ACID 2.6. MADE PRIMARY CARE PHYSICIAN DR. PICKARD AWARE. WILL CONTINUE TO MONITOR PATIENT.
[2020-07-07 10:27] LABS: MAGNESIUM 1.9 mg/dL (1.8-2.4); PHOSPHORUS 2.8 mg/dL (2.5-4.9)
[2020-07-07 16:02] VITALS: BP 112/71
--- NOTE | 2020-07-07 18:49 | NUR ---
MS RN CLOSING NOTE PATIENT RESTING COMFORTABLY IN BED WITH EYES CLOSED. OPENS EYES TO TACTILE AND VERBAL STIMULI, NON-VERBAL. PATIENT ON TRACH WITH 02 OF 5 LPM. NO S/S OF RESPIRATORY DISTRESS. NOT EXHIBITING ANY FACIAL GRIMACING. SHINE CATH WITH OUTPUT OF 1, 650 THROUGHOUT SHIFT; DRAINING CLEAR, YELLOW URINE. SAFETY PRECAUTIONS MAINTAINED THROUGHOUT THE SHIFT: BED LOWEST POSITION, BRAKES LOCKED, SIDE RAILS UP. ALL ROUTINE MEDS WERE GIVEN. WOUND CARE PROVIDED ON THE SACRAL AREA. LACTID ACID REPORTED TO MD. WILL ENDORSE TO [employer] PROTOTYPING ENGINEER NURSE FOR KARI.
--- NOTE | 2020-07-07 19:30 | NUR ---
MS RN OPENING NOTE RECEIVED PATIENT IN BED. NONVERBAL, OPENS EYES TO NAME AND TOUCH. ON OXYGEN VIA T PIECE 5L/MIN. RESPIRATIONS ARE EVEN AND UNLABORED. NO S/S SOB NOTED. NO S/S PAIN NOTED. IN NO APPARENT DISTRESS. IV ACCESS IN AFSHAN MIDLINE RUNNING D5W@100ML/HR. SHINE CATHETER IS PRESENT. DRAINING TO GRAVITY. GTUBE IS PRESENT, RESIDUAL 20ML, FLUSHED WITH NO RESISTANCE, FEEDING RUNNING @45ML/HR. RIGHT SOFT WRIST RESTRAINT PRESENT, NO REDNESS NOTED, GOOD CAP REFILL, ABLE TO PLACE 2 FINGERS IN THE RESTRAINT. BED IS LOW AND LOCKED, HOB ELEVATED IN SEMI FOWLERS, SIDE RAILS UP X3. CALL LIGHT WITHIN REACH. WILL CONTINUE TO MONITOR THROUGHOUT SHIFT.
[2020-07-07 20:00] VITALS: BP 117/77
[2020-07-08] MEDS: PIPERACILLIN /TAZOBACTAM 3.375 G in IV D5W 50 ML IV SCH ×3 (00:02→11:32)
[2020-07-08] MEDS: IPRATROPIUM NEB FS 0.5 MG/2.5 ML AMPUL.NEB NEB SCH ×3 (01:14→13:39)
[2020-07-08] MEDS: IV D5W 1,000 ML IV PRN (05:19)
[2020-07-08] MEDS: JEVITY 1.2 CAL 1,000 ML BOTTLE GT SCH (05:24)
--- NOTE | 2020-07-08 06:13 | NUR ---
MS RN CLOSING NOTE PATIENT IN BED. OPENS EYES TO TOUCH. RECEIVING ON OXYGEN VIA T PIECE 5L/MIN, PORTEX 8. NO RESP DISTRESS, SUCTION THICK MUCUS. NO S/S PAIN. NO DISTRESS. IV ACCESS MAINTAINED IN AFSHAN MIDLINE RUNNING D5W@100ML/HR. SHINE CATHETER IS MAINTAINED, OUTPUT 1700NL YELLOW SLIGHTLY CLOUDY URINE, DRAINING TO GRAVITY. GTUBE IS RUNNING @45ML/HR. RIGHT SOFT WRIST RESTRAINT WITH NO REDNESS NOTED, GOOD CAP REFILL, NO INJURY NOTED. BED REMAINS LOW AND LOCKED, HOB ELEVATED IN SEMI FOWLERS, SIDE RAILS UP X3. CALL LIGHT WITHIN REACH. WILL ENDORSE TO ONCOMING SHIFT.
--- NOTE | 2020-07-08 07:29 | NUR ---
RN MS OPENING NOTES PT WAS SEEN SLEEPING IN BED. PT IS NONVERBAL, BUT OPENS EYES TO TACTILE AND VERBAL STIMULATION. PT IS CURRENTLY IN NO PAIN. PT HAS A T PIECE AND IS ON 5L OF OXYGEN. PT HAS A RIGHT UPPER ARM MIDLINE INTACT AND PATENT. SHINE CATHETER NOTED. G TUBE IS RUNNING AT 45 ML/HR. RIGHT SOFT WRIST RESTRAINT NOTED WITH NO REDNESS. ALL SAFETY MEASURES IN PLACE. CALL LIGHT WITHIN REACH. WILL CONTINUE TO MONITOR THE PT.
[2020-07-08 08:00] VITALS: BP 113/72
--- NOTE | 2020-07-08 08:03 | NUR ---
RT Pt received trached on cool aerosol 28% with adequate SpO2. Pt is awake but does not follow commands. Spare tracheostomy tube and BVM by bedside. No SOB or respiratory distress noted. Addendum: 07/08/20 at 1331 by WADE JUAREZ RT Amended: Links added.
[2020-07-08] MEDS: POTASSIUM CHLORIDE 20 MEQ POWDER PACKET GT SCH (08:34)
[2020-07-08] MEDS: CHLORHEXIDINE GLUCONATE 15 ML UDC MM SCH (08:34)
[2020-07-08] MEDS: DOCUSATE SODIUM LIQ 100 MG/10 ML UDC GT SCH (08:34)
[2020-07-08] MEDS: PANTOPRAZOLE 40 MG/PACK PACK GT SCH (08:34)
[2020-07-08] MEDS: GLYCOPYRROLATE 1 MG TABLET GT SCH (08:35)
[2020-07-08] MEDS: HYDROCORTISONE SOD SUCCINATE 100 MG/2 ML VIAL IV SCH (08:35)
[2020-07-08] MEDS: LEVETIRACETAM SOL (5 ML) 100 MG/ML UDC GT SCH (08:35)
[2020-07-08] MEDS: ASCORBIC ACID 500 MG TABLET GT SCH (08:35)
[2020-07-08] MEDS: PROSOURCE / PROSTAT (PYXIS) 30 ML UDC GT SCH (08:36)
[2020-07-08] MEDS: CLOTRIMAZOLE 1% 15 GM TUBE TP SCH (08:50)
[2020-07-08] MEDS: MUPIROCIN OINT 2% 22 GM TUBE NS SCH (08:50)
[2020-07-08] MEDS: HYDROGEL DRESSING 90 GM TUBE TP SCH (08:51)
[2020-07-08] MEDS: Z GUARD REMEDY 2 OZ OINT TP SCH (08:53)
--- NOTE | 2020-07-08 14:43 | NUR ---
RN DISCHARGED NOTES PT DIS[facility] TO [facility] IN STABLE CONDITION. CALLED AND REPORT/DISCHARGED INSTRUCTIONS GIVEN TO KARI NOBLE PT IS ALERT, NOT ORIENTED BUT OPEN EYES AND RESPONSIVE TO TACTILE STIMULI. ON T-PIECE AT 5LPM, TOLERATING WELL WITH NO ACUTE RESPIRATORY DISTRESS NOTED. V/S TAKEN, STABLE AND RECORDED. G-TUBE IN PLACE, PATENT AND FLUSHES WELL. PT NO BELONGINGS. AFSHAN MIDLINE KEPT IN PLACE, PT WILL CONTINUE TO RECEIVED IV ATB ZOSYN Q6HRS FOR 7 MORE DAYS PER MD ORDER. SHINE IN PLACE AND ACTIVELY DRAINING CLEAR YELLOW URINE VIA GRAVITY. PT LEFT UNIT @ 1410 VIA GURNEY ACCOMPANIED BY 2 PRESSER AND SHAPER KNITTED GOODS AND 1 RESPIRATORY THERAPIST. MD AND CHARGE NURSE AWARE OF DISCHARGE.
[2020-07-09] MEDS ORDERED: HYDROCORTISONE SOD SUCCINATE 100 MG/2 ML VIAL IV SCH (09:00)
== END 2020-07-08 14:59 | DRG 710 ==
LOC: ER 03:30 → TRANSITION 07:46 → TELE1 08:41 → ICU 06-30 05:03 → TELE 07-02 18:52 → MED 07-03 11:03 → TELE 07-03 19:16 → MED 07-04 08:38
PROVIDERS: ADMIT Nurse Practitioner Family; ATTEND Internal Medicine
PROC: 05H533Z Insertion of Infusion Device into Right Subclavian Vein, Percutaneous Approach (ICD-10-PCS; 2020-06-29)
PROC: B546ZZA Ultrasonography of Right Subclavian Vein, Guidance (ICD-10-PCS; 2020-06-29)
PROC: 30233N1 Transfusion of Nonautologous Red Blood Cells into Peripheral Vein, Percutaneous Approach (ICD-10-PCS; 2020-06-29)
PROC: 3E1K78Z Irrigation of Genitourinary Tract using Irrigating Substance, Via Natural or Artificial Opening (ICD-10-PCS; 2020-07-02)
PROC: 0QB10ZZ Excision of Sacrum, Open Approach (ICD-10-PCS; principal; 2020-07-03)
PROC: 0QB70ZZ Excision of Left Upper Femur, Open Approach (ICD-10-PCS; 2020-07-03)
DX: A41.9 Sepsis, unspecified organism (principal); R65.21 Severe sepsis with septic shock; N39.0 Urinary tract infection, site not specified; N17.0 Acute kidney failure with tubular necrosis; E44.0 Moderate protein-calorie malnutrition; L89.154 Pressure ulcer of sacral region, stage 4; J44.9 Chronic obstructive pulmonary disease, unspecified; Z93.1 Gastrostomy status; Z87.820 Personal history of traumatic brain injury; J96.10 Chronic respiratory failure, unspecified whether with hypoxia or hypercapnia; Z93.0 Tracheostomy status; L89.894 Pressure ulcer of other site, stage 4; D64.9 Anemia, unspecified; E87.2 Acidosis; E87.6 Hypokalemia; F29 Unspecified psychosis not due to a substance or known physiological condition; G91.9 Hydrocephalus, unspecified; G93.41 Metabolic encephalopathy; R13.10 Dysphagia, unspecified; Z86.73 Personal history of transient ischemic attack (TIA), and cerebral infarction without residual deficits; Z79.01 Long term (current) use of anticoagulants; Z99.11 Dependence on respirator [ventilator] status; D47.3 Essential (hemorrhagic) thrombocythemia; E88.09 Other disorders of plasma-protein metabolism, not elsewhere classified; K21.9 Gastro-esophageal reflux disease without esophagitis; Z68.1 Body mass index [BMI] 19.9 or less, adult; S90.32XA Contusion of left foot, initial encounter; S90.31XA Contusion of right foot, initial encounter; X58.XXXA Exposure to other specified factors, initial encounter; Y93.89 Activity, other specified; Y92.129 Unspecified place in nursing home as the place of occurrence of the external cause; N13.9 Obstructive and reflux uropathy, unspecified; L89.329 Pressure ulcer of left buttock, unspecified stage; Z20.822 Contact with and (suspected) exposure to COVID-19; J98.11 Atelectasis; N32.89 Other specified disorders of bladder; B95.2 Enterococcus as the cause of diseases classified elsewhere; B96.4 Proteus (mirabilis) (morganii) as the cause of diseases classified elsewhere; Z74.01 Bed confinement status
CPT/HCPCS: 31720; 36415; 36600; 71045-TC; 76770-TC; 76856-TC; 80048-TC; 80053-TC; 80061-TC; 80076-TC; 80150; 81001; 82247-TC; 82248-TC; 82272-TC; 82533; 82550-TC; 82570-TC; 82728-TC; 82803-TC; 83540-TC; 83605-TC; 83735-TC; 83880; 83970; 84100-TC; 84155; 84155-TC; 84165; 84300-TC; 84443-TC; 84484-TC; 85025-TC; 85027-TC; 85730-TC; 86850-TC; 87040-TC; 87070-TC; 87081-TC; 87086-TC; 87186-TC; 93307-TC; 94640-TC; 94664-TC; 94760-TC; 94761-TC; 94762-TC; 94799-TC; A4216; A4217; A4623; A6248; A6253; A6403; A7526; C9113; C9803; G0378; J0278; J1644; J1650; J1720; J1953; J2020; J2060; J2185; J2370; J2543; J3370; J3475; J3490; J7030; J7040; J7042; J7050; J7060; J7070; P9016-BL

== ENCOUNTER 2020-12-06 08:23 | Inpatient (IN) | payer OTHER ==
[2020-12-06] VITALS (41 sets, daily range): BP systolic 87–133; BP diastolic 53–88
[~2020-12-06] VITALS: Ht 162.6 cm; Wt 45.4 kg
[~2020-12-06 08:23] MED LIST: ACET325T53 GT; AMIN887L GT; ASCO500C17 GT; CHLO473M3 MM; CRAN3875 GT; DEXT15DR6 OP; DOCU-141 GT; GLYC2TAB21 GT; HEPA100D33 SQ; IPRA12.9 IH; LACT-209 GT; LEVE1000 GT; OMEP20TA5 GT
--- NOTE | 2020-12-06 08:30 | NUR ---
PT BIBRA FROM SNF TO ED BED 8 FOR NOTED TACHYCARDIA AND FEVER AND WAS SENT FOR KEVIN EVAL. PT HAS TRACH, G TUBE AND A SHINE CATH IN PLACE. PLACED ON MONITOR. FEBRILE MUD GRINDER. PRESSURE SORE NOTED TO SACRAL AREA. AWAITING MD CROWELL.
--- NOTE | 2020-12-06 08:38 | NUR ---
DR CASPER AT BEDSIDE FOR CHEST XRAY.
--- NOTE | 2020-12-06 08:55 | NUR ---
UNABLE TO GET BLOOD SPECIMEN. LAB CALLED FOR BLOOD DRAW. IV LINE STARTED.
[2020-12-06] MEDS ORDERED: IV NS 0.9% 2,000 ML IV ONE (09:00)
[2020-12-06] MEDS ORDERED: POLY15DR40 EACHEYE (09:02)
[2020-12-06] MEDS ORDERED: ASCO500T10 GT (09:02)
[2020-12-06] MEDS ORDERED: NUTR1PAC14 GT (09:02)
[2020-12-06] MEDS ORDERED: ACET-2030 GT (09:02)
[2020-12-06] MEDS ORDERED: HYDR-4303 TD (09:02)
[2020-12-06] MEDS ORDERED: BISA10SU11 RC (09:02)
[2020-12-06] MEDS ORDERED: ACET-868 GT (09:02)
[2020-12-06] MEDS ORDERED: HYDR-4303 GT (09:02)
[2020-12-06] MEDS ORDERED: CLON1TAB GT (09:02)
[2020-12-06] MEDS ORDERED: QUET50TA GT (09:02)
[2020-12-06] MEDS ORDERED: MAGN400O6 GT (09:02)
[2020-12-06] MEDS ORDERED: NA P133E RC (09:02)
[2020-12-06] MEDS ORDERED: HEPA50007 SQ (09:02)
[2020-12-06] MEDS ORDERED: SENN-261 GT (09:02)
[2020-12-06] MEDS ORDERED: FERR300L GT (09:02)
[2020-12-06] MEDS ORDERED: IPRA12.9 IH (09:02)
--- NOTE | 2020-12-06 09:05 | NUR ---
RADIOLOGY AT BEDSIDE FOR CHEST XRAY.
[2020-12-06] MEDS ORDERED: ACETAMINOPHEN 650 MG/SUPP.RECT RC ONE ×2 (09:30→09:41)
[2020-12-06] MEDS ORDERED: PIPERACILLIN /TAZOBACTAM 3.375 G in IV D5W 50 ML IV ONE (09:30)
[2020-12-06] MEDS ORDERED: VANCOMYCIN 1 GM in IV D5W 250 ML IV ONE (09:30)
[2020-12-06 09:51] LABS: BASOPHILS % (AUTO) 0.2 % (0.0-2.0); EOSINOPHILS % (AUTO) 0.6 % (0.0-6.0); HEMATOCRIT 26 % (39-51); HEMOGLOBIN 7.8 g/dL (13.5-17.5); LYMPHOCYTES % (AUTO) 7.9 % (20.0-44.0); MEAN CORPUSCULAR HGB CONC 30 g/dl (31.0-36.0); MEAN CORPUSCULAR VOLUME 72 fL (80-96); MONOCYTES # (AUTO) 1.1 K/uL (0.1-1.30); MONOCYTES % (AUTO) 8.9 % (2.0-12.0); NEUTROPHILS # (AUTO) 10.4 K/uL (1.8-8.9); NEUTROPHILS % (AUTO) 82.4 % (43.0-81.0); PLATELET COUNT (AUTO) 668 K/uL (150-450); RED BLOOD CELL COUNT(AUTO) 3.64 MIL/uL (4.5-6.0); WHITE BLOOD COUNT (AUTO) 12.6 K/uL (4.3-11.0)
[2020-12-06 09:53] LABS: BILIRUBIN,URINE NEGATIVE (NEGATIVE); COLOR,URINE YELLOW (YELLOW); LEUKOCYTE ESTERASE ,URINE LARGE (NEGATIVE); NITRITE, URINE NEGATIVE (NEGATIVE); PROTEIN,URINE 30 mg/dl (NEGATIVE); UGLUCOSE NEGATIVE (NEGATIVE); UROBILINOGEN,URINE 0.2 EU/dL (0.2)
[2020-12-06 10:20] LABS: D-DIMER 6.12 mg/L(FEU (0.17-0.50)
[2020-12-06 10:27] LABS: CALCIUM, SERUM 8.7 mg/dL (8.5-10.1); CARBON DIOXIDE 27 mmol/L (21-32); CHLORIDE 100 mmol/L (98-107); CREATININE 0.7 mg/dL (0.6-1.3); GLUCOSE 96 mg/dL (74-106); POTASSIUM 4.7 mmol/L (3.5-5.1); SODIUM SERUM 138 mmol/L (136-145); UREA NITROGEN, BLOOD 22 mg/dL (7-18)
[2020-12-06 10:28] LABS: BACTERIA,URINE Moderate /HPF (None Seen)
[2020-12-06 10:29] LABS: SQUAMOUS EPITHELIAL CELL,UR Rare /HPF (None Seen)
[2020-12-06 10:41] LABS: ALANINE AMINOTRANSFERASE 25 U/L (12-78); ALBUMIN 1.6 g/dL (3.4-5.0); ALKALINE PHOSPHATASE 209 U/L (46-116); ASPARTATE AMINOTRANSFERASE 27 U/L (15-37); BILIRUBIN,TOTAL 0.3 mg/dL (0.2-1.0); TOTAL PROTEIN, SERUM 7.8 g/dL (6.4-8.2)
[2020-12-06 10:58] LABS: CREATINE KINASE, TOTAL 201 U/L (39-308); FERRITIN 306 ng/mL (8-388)
[2020-12-06] MEDS ORDERED: ENOXAPARIN SODIUM 40 MG/0.4 ML DISP.SYRIN SQ ONE ×3 (11:00→11:30)
--- NOTE | 2020-12-06 11:20 | NUR ---
CALLED NURSING SUPP FOR TELEMETRY BED.
--- NOTE | 2020-12-06 11:25 | NUR ---
DR WILLS PAGED AND TALKING TO DR CASPER.
--- NOTE | 2020-12-06 11:29 | NUR ---
PER JOHANN, ADMIT PATIENT TO ICU. ADMITTING MADE AWARE.
--- NOTE | 2020-12-06 11:45 | NUR ---
RN NOTE TELEPHONE REPORT RECEIVED FROM KARI GUNDERSON
--- NOTE | 2020-12-06 11:45 | NUR ---
PT ASSIGNED ROOM 259
--- NOTE | 2020-12-06 11:55 | NUR ---
REPORT GIVENT TO DAMIEN PIERCE. AWAITING TRANSFER TO ICU.
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
[2020-12-06] MEDS ORDERED: Z GUARD REMEDY 2 OZ OINT TP PRN (13:00)
[2020-12-06] MEDS ORDERED: ONDANSETRON HCL/PF 4 MG/2 ML VIAL IVP PRN (13:00)
--- NOTE | 2020-12-06 14:45 | NUR ---
RN NOTE DR PICKARD INFORMED OF LACTIC 2.3 AND FIBRINOGEN 900
[2020-12-06 15:00] LABS: BILIRUBIN,DIRECT 0.1 mg/dL (0.0-0.2)
[2020-12-06] MEDS: ACETAMINOPHEN 325 MG TABLET PO PRN ×2 (15:27→22:12)
--- NOTE | 2020-12-06 15:27 | NUR ---
RN NOTE PT TEMP OF 101.5 F, TYLENOL GIVEN AND COOLING MEASURES IN PLACE
--- NOTE | 2020-12-06 15:45 | NUR ---
RN NOTE INFORMED DR PICKARD OF PT SINUS TACHY 160, FEVER OF 100.5 F. COOLING MEASURES AND TYLENOL IN PLACE
[2020-12-06] MEDS ORDERED: PIPERACILLIN /TAZOBACTAM 3.375 G in IV D5W 100 ML IV SCH (16:00)
[2020-12-06] MEDS: IV NS 0.9% 1,000 ML IV PRN (17:23)
[2020-12-06] MEDS ORDERED: PIPERACILLIN /TAZOBACTAM 4.5 G in IV D5W 50 ML IV SCH (18:00)
--- NOTE | 2020-12-06 18:42 | NUR ---
RN NOTE UNABLE TO START VANCO PT ONLY HAS RT HAND #18, ZOSYN CURRENTLY RUNNING (4HR). MIDLINE ORDER PLACED, AWAITING MIDLINE NURSE
--- NOTE | 2020-12-06 19:15 | NUR ---
SPARES SCHEDULER CLOSING NOTE PT STABLE, ON T-PIECE 3L, SPO2 100%, NO RESP DISTRESS OR SOB. PT TEMP DOWN NOW AT 98.8 F. PT BEDSIDE MONITOR ST 130s, DOWN FROM 160s EARLIER. ALL PT SAFETY PRECAUTIONS IN PLACE, KARI ENDORSED TO SQL ANALYST NURSE
--- NOTE | 2020-12-06 19:25 | NUR ---
ICU/PROFESSIONAL SKATEBOARDER RECIEVED REPORT FROM DAY SHIFT NURSE. SEE FLOWSHEET FOR ASSESSMENT, ALONG WITH SKIN ISSUES THAT ARE ADDRESSED ON THE FLOWSHEET AND THE INTERVENTIONS TO EACH. THERE ARE NO IV DRIPS WHICH NEED TO BE ADDRESSED ON IV SPREAD SHEET, JUST ANTIBIOTICS. PT WAS TURNED AND REPOSITIONED FOR COMFORT AND CARE. WILL CONTINUE TO MONITOR THIS PT. PT HAS TEMP 102.6 AX, COOLING MEASURES WERE DONE DUE TO THE FACT PT WAS GIVEN TYLENOL AT 1530, WILL CONTINUE TO MONITOR THIS PT'S TEMP.
[2020-12-06] MEDS: VANCOMYCIN 0.75 GM in IV D5W 250 ML IV SCH (19:52)
[2020-12-06] MEDS ORDERED: MEROPENEM 1 G in IV NS 0.9% 100 ML IV ONE (20:00)
--- NOTE | 2020-12-06 20:15 | NUR ---
ICU/SHAREPOINT ADMINISTRATOR FOUND WOUNDS ON PT THAT NEED TO BE ADDRESSED AND REQUIRE INTERVENTION TO THESE. THESE WERE PHOTOGRAPHED AND PLACED IN THE CHART.
--- NOTE | 2020-12-06 20:26 | NUR ---
RECEIVED PT TRACHED PORTEX 8 ON 2L T-PIECE. SX'D MOD AMT OF THICK WHITE SECRETIONS. NO RESP DISTRESS. CONTINUE TO MONITOR. Addendum: 12/06/20 at 2028 by JULIANN FRANCES RT Amended: Links added.
[2020-12-06] MEDS ORDERED: MEROPENEM 500 MG in IV NS 0.9% 50 ML IV SCH (21:00)
--- NOTE | 2020-12-06 22:02 | NUR ---
ICU/VP DESIGN LINE NURSE TO PLACE MIDLINE TO THE RIGHT UPPER ARM. THERE WAS NO ISSUE WITH THE LINE GOOD BLOOD RETURN.
--- NOTE | 2020-12-06 22:44 | NUR ---
ICU/CERTIFIED DRIVER EXAMINER PT CONTINUES TO GAVE FEVER OF 102.3 AX, TYLENOL GIVEN VIA G/TUBE AND ALSO COOLING MEASURES CONTINUES. WILL CONTINUES TO MONITOR THIS PT'S TEMP. AT THIS TIME PT WAS TUNED AND REPOSITIONED FOR COMFORT AND CARE.
[2020-12-07] VITALS (39 sets, daily range): BP systolic 91–123; BP diastolic 46–80
--- NOTE | 2020-12-07 00:45 | NUR ---
ICU/PROCESS COACH PT WAS GIVEN ORAL CARE AT THIS TIME ALONG WITH PM CARE. PT TOLERATED THIS WELL, PT REMAINS ON CURRENT T-PIECE SETTINGS WITH SATURATION AT 98-100%. PT WAS TURNED AND REPOSITIONED FOR COMFORT AND CARE. NO ACUTE DISTRESS SEEN AT THIS TIME. WILL CONTINUE TO MONITOR THIS PT.
[2020-12-07] MEDS: VANCOMYCIN 0.75 GM in IV D5W 250 ML IV SCH ×3 (02:09→17:57)
[2020-12-07] MEDS: MEROPENEM 1 G in IV NS 0.9% 100 ML IV SCH ×3 (03:36→19:42)
[2020-12-07] MEDS: ACETAMINOPHEN 325 MG TABLET PO PRN ×3 (04:10→16:49)
[2020-12-07 04:40] LABS: BILIRUBIN,TOTAL 0.4 mg/dL (0.2-1.0); CALCIUM, SERUM 8.1 mg/dL (8.5-10.1); CREATININE 0.5 mg/dL (0.6-1.3); PHOSPHORUS 2.8 mg/dL (2.5-4.9); POTASSIUM 3.8 mmol/L (3.5-5.1); TOTAL PROTEIN, SERUM 6.8 g/dL (6.4-8.2)
[2020-12-07 04:46] LABS: ALBUMIN 1.3 g/dL (3.4-5.0)
--- NOTE | 2020-12-07 04:57 | NUR ---
ICU/DIALYSIS BIOMED TECHNICIAN PT APPEARED TO BE IN PAIN USING FLACC SCALE, TYLENOL WAS GIVEN VIA G/TUBE. WILL CONTINUE TO MONITOR THIS PT.
[2020-12-07 05:28] LABS: BASOPHILS % (AUTO) 0.4 % (0.0-2.0); EOSINOPHILS % (AUTO) 0.4 % (0.0-6.0); LYMPHOCYTES # (AUTO) 0.8 K/uL (0.8-4.8); MEAN CORPUSCULAR HGB CONC 31 g/dl (31.0-36.0); MEAN CORPUSCULAR VOLUME 72 fL (80-96); MONOCYTES # (AUTO) 1.3 K/uL (0.1-1.30); MONOCYTES % (AUTO) 12.9 % (2.0-12.0); NEUTROPHILS # (AUTO) 7.7 K/uL (1.8-8.9); NEUTROPHILS % (AUTO) 78.3 % (43.0-81.0); PLATELET COUNT (AUTO) 531 K/uL (150-450); RED BLOOD CELL COUNT(AUTO) 2.65 MIL/uL (4.5-6.0); WHITE BLOOD COUNT (AUTO) 9.9 K/uL (4.3-11.0)
[2020-12-07 05:36] LABS: HEMATOCRIT 19 % (39-51); HEMOGLOBIN 5.8 g/dL (13.5-17.5)
--- NOTE | 2020-12-07 06:31 | NUR ---
ICU/DAY HABILITATION SUPERVISOR PT'S MORNING LABS ARE ABNORMAL SUCH LOW H/H-5.8/19, PLT-531, ALBUMIN-1.3, [facility] WAS CALLED GOT OFFER TO TRANSFUSE 2 UNITS PRBC. CALLED THE MOTHER HIRA LOPEZ [phone], SHE GAVE CONSENT FOR 2 UNITS PRBC. CHARGE NURSE AWARE PLACED ORDER TO TYPE AND CROSS.
--- NOTE | 2020-12-07 07:10 | NUR ---
CONSULTING SME Opening Notes Received patient comfortably resting in bed, patient is non-verbal but is awake and responds to tactile stimuli. Patient has trach Portex 8 which is intact and patent. Patient on T-piece Cool Aerosol at 2lpm O2 which patient is tolerating well with O2 sat 100%. Patient in no respiratory distress, no s/sx of pain, baseline tachy per report but VS otherwise WNL. RUE midline, Rt hand IV and Rt foot IV all intact, patent and flushing well. GT intact and is on clamped per order. Patient to receive Blood transfusion today, awaiting results of type and screen. Patient stable at this time. Call light within reach, bed locked and in lowest position with B siderails up. Will continue to monitor.
[2020-12-07 08:04] LABS: BAND % (MANUAL) 2 % (0.0-5.0); EOSINOPHILS % (MANUAL) 1 % (0-4); LYMPHOCYTES % (MANUAL) 8 % (16-48); MONOCYTES % (MANUAL) 9 % (0-11.0); NEUTROPHILS % (MANUAL) 80 (42-76)
--- NOTE | 2020-12-07 08:15 | NUR ---
WOUND CARE CONSULT: REVIEWED CHART, NURSING DOCUMENTATION AND PHOTOS WHICH INDICATE MULTIPLE WOUNDS PRESENT ON ADMISSION. RECOMMEND SURGICAL AND DPM CONSULTS. DR DONTA DELEON AND DR BAIRD NOTIFIED. RECOMMENDATIONS MADE FOR SKIN PROTECTION AND WOUND CARE. DISCUSSED WITH NURSING STAFF. PT NOTED TO HAVE CONTRACTED LOWER EXTREMITIES. MD IN AGREEMENT WITH PLAN OF CARE.
--- NOTE | 2020-12-07 08:30 | NUR ---
RN NOTES SPOKE WITH DR. WILLS, UPDATE ON PT GIVEN. ALSO FOR BLOOD TRANSFUSION OF [address] WILLS, CHECK CBC FIRST BEFORE GIVING 2ND UNIT PRBC. PT MAY NEED 1 UNIT ONLY.
[2020-12-07] MEDS: IV NS 0.9% 1,000 ML IV PRN ×2 (08:49→22:50)
[2020-12-07] MEDS ORDERED: ENOXAPARIN SODIUM 40 MG/0.4 ML DISP.SYRIN SQ SCH (09:00)
[2020-12-07] MEDS: DAKINS QUARTER STRENGTH (0.125%) 480 ML BOTTLE TOP SCH (09:39)
--- NOTE | 2020-12-07 10:24 | NUR ---
RN NOTES DR. WILLS NOTIFIED PT HAS 100.1 TEMP, BLOOD TRANSFUSION STARTED. INSTRUCTED TO GIVE TYLENOL AND CONT WITH BLD TRANSFUSION
[2020-12-07 16:29] LABS: BASOPHILS % (AUTO) 0.2 % (0.0-2.0); EOSINOPHILS % (AUTO) 0.8 % (0.0-6.0); HEMATOCRIT 26 % (39-51); HEMOGLOBIN 8.3 g/dL (13.5-17.5); LYMPHOCYTES # (AUTO) 1.1 K/uL (0.8-4.8); LYMPHOCYTES % (AUTO) 7.6 % (20.0-44.0); MEAN CORPUSCULAR HGB CONC 31 g/dl (31.0-36.0); MEAN CORPUSCULAR VOLUME 77 fL (80-96); MONOCYTES # (AUTO) 1.2 K/uL (0.1-1.30); MONOCYTES % (AUTO) 8.4 % (2.0-12.0); NEUTROPHILS # (AUTO) 11.5 K/uL (1.8-8.9); PLATELET COUNT (AUTO) 621 K/uL (150-450); RED BLOOD CELL COUNT(AUTO) 3.45 MIL/uL (4.5-6.0); WHITE BLOOD COUNT (AUTO) 13.9 K/uL (4.3-11.0)
[2020-12-07 17:17] LABS: BAND % (MANUAL) 3 % (0.0-5.0); EOSINOPHILS % (MANUAL) 1 % (0-4); LYMPHOCYTES % (MANUAL) 11 % (16-48); MONOCYTES % (MANUAL) 5 % (0-11.0); NEUTROPHILS % (MANUAL) 80 (42-76)
--- NOTE | 2020-12-07 17:36 | NUR ---
RN NOTES REPEAT HGB/HCT = 8.3. RELAYED TO DR. PICKARD. PER HIM HOLD TRANSFUSION OF 2ND UNIT PRBC FOR NOW.
--- NOTE | 2020-12-07 18:42 | NUR ---
ENERGY CONTROL OFFICER Closing Notes Patient comfortably resting in bed, still awake and responsive to tactile stimuli but is non-verbal. No signs of pain and discomfort at this time. Patient still on Cool Aerosol at 2lpm via trach T-piece which patient is tolerating well. No SOB, no respiratory distress at this time. Patient remained Sinus Tachy throughout the shift and with 2 episodes of low grade fever which was resolved with PRN tylenol. Current temp is 98.7 F. Patient received 1 PRBC, Per Dr. Lynn hold the other 1 PRBC since current hgb is now 8.3 s/p transfusion. All IV access remain intact and patent, wound care done, turned and repositioned patient Q2h. Call light within reach, bed locked and is in lowest position. All needs met, kept patient clean and dry. Will endorse care to incoming RN for continuity of care.
--- NOTE | 2020-12-07 19:30 | NUR ---
RN NOTE RECEIVED PATIENT IN BED. PATIENT IS NONVERBAL, OPENS EYES SPONTANEOUSLY BUT DOES NOT TRACK. ON OXYGEN 2L/MIN VIA T-PIECE WITH COOL AEROSOL. YELLOW THICK SECRETIONS. RESPIRATIONS ARE EVEN AND UNLABORED. NO S/S SOB AT THIS TIME. NO S/S PAIN AT THIS TIME. IN NO APPARENT DISTRESS. TELE MONITOR READS SINUS RHYTHM / SINUS TACH HR CURRENTLY 103. GTUBE IS PRESENT, NO RESIDUAL, CURRENTLY CLAMPED. SHINE CATHETER IS PRESENT DRAINING TO GRAVITY, URINE IS YELLOW. BED IS LOW AND LOCKED, HOB ELEVATED IN SEMI FOWLERS, SIDE RIAL SUP X3, CALL LIGHT WITHIN REACH. WILL CONTINUE TO MONITOR THROUGHOUT SHIFT.
[2020-12-08] VITALS (22 sets, daily range): BP systolic 80–119; BP diastolic 43–83
[2020-12-08] MEDS: ACETAMINOPHEN 325 MG TABLET PO PRN ×2 (00:05→12:04)
[2020-12-08] MEDS: VANCOMYCIN 0.75 GM in IV D5W 250 ML IV SCH ×3 (01:17→17:46)
[2020-12-08] MEDS: MEROPENEM 1 G in IV NS 0.9% 100 ML IV SCH ×3 (03:23→20:49)
[2020-12-08 04:30] LABS: CALCIUM, SERUM 8.1 mg/dL (8.5-10.1); CREATININE 0.4 mg/dL (0.6-1.3); POTASSIUM 2.9 mmol/L (3.5-5.1)
--- NOTE | 2020-12-08 06:18 | NUR ---
RN NOTE PATIENT RESTING IN BED. NONVERBAL. REMAINS ON OXYGEN 2L/MIN VIA T-PIECE WITH COOL AEROSOL. YELLOW THICK SECRETIONS OUTPUT 100CC. NO RESP DISTRESS. ADMINISTERED PRN TYLENOL FOR SLIGHT TEMP 99.1 AND INCREASED HR. NO DISTRESS. TELE MONITOR CURRENTLY READS SINUS TACH HR 108. GTUBE REMAINS CLAMPED. SHINE CATHETER OUTPUT 305CC YELLOW. RIGHT HAND MITTEN STILL IN PLACE, NO REDNESS NOTED, GOOD CAP REFILL. BED REMAINS LOW AND LOCKED, HOB ELEVATED IN SEMI FOWLERS, SIDE RIAL SUP X3, CALL LIGHT WITHIN REACH. WILL ENDORSE TO ONCOMING SHIFT.
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
[2020-12-08 07:41] LABS: BASOPHILS % (AUTO) 0.4 % (0.0-2.0); HEMATOCRIT 31 % (39-51); HEMOGLOBIN 9.5 g/dL (13.5-17.5); LYMPHOCYTES # (AUTO) 1.2 K/uL (0.8-4.8); LYMPHOCYTES % (AUTO) 11.1 % (20.0-44.0); MEAN CORPUSCULAR HGB CONC 31 g/dl (31.0-36.0); MEAN CORPUSCULAR VOLUME 77 fL (80-96); MONOCYTES # (AUTO) 1.1 K/uL (0.1-1.30); MONOCYTES % (AUTO) 10.2 % (2.0-12.0); NEUTROPHILS # (AUTO) 8.3 K/uL (1.8-8.9); NEUTROPHILS % (AUTO) 77.3 % (43.0-81.0); PLATELET COUNT (AUTO) 627 K/uL (150-450); RED BLOOD CELL COUNT(AUTO) 3.99 MIL/uL (4.5-6.0); WHITE BLOOD COUNT (AUTO) 10.7 K/uL (4.3-11.0)
[2020-12-08] MEDS: POTASSIUM CL. PREMIX PERIPHER. 50 ML IV SCH ×4 (08:29→10:39)
[2020-12-08] MEDS: DAKINS QUARTER STRENGTH (0.125%) 480 ML BOTTLE TOP SCH (08:57)
--- NOTE | 2020-12-08 10:18 | NUR ---
RN Notes Received patient from ICU, report given by Sarah PIERCE at bedside. Patient is awake but non-verbal and responds to tactile stimuli. Patient on Cool Aerosol with O2 @ 2lpm via Tpiece with trach Portex 8. All Trach tubings intact and patent, patient tolerating current settings well, no SOB, no Respiratory distress. VS within patient's baseline parameters. Patient's IV access on RUE midline, Rt foot and Rt hand intact and patent. Patient's GT also intact and patent but is currently clamped per MD's order. Patient connected to groundwater monitoring technician. Bed locked and in lowest position. Call light within reach. Kept patient clean and dry. Will continue to monitor.
--- NOTE | 2020-12-08 11:00 | NUR ---
ICU/RN PT TRANSFERRED TO TELE UNIT .V/S STABLE,AFEBRILE.NO PAIN REPORTED AT THIS TIME.REPORT GIVEN TO TERRA/RN.
[2020-12-08] MEDS: IV NS 0.9% 1,000 ML IV PRN (16:00)
--- NOTE | 2020-12-08 19:22 | NUR ---
RN Closing Notes Patient comfortably resting in bed, non-verbal but awake and responds to tactile stimuli. Patient still on Cool Aerosol with O2 @ 2lpm via Tpiece trach Portex 8. No SOB, No respiratory distress noted, no s/sx of pain and discomfort at this time. All wound care and due meds given as ordered. Patient kept clean and dry. Endorsed care to incoming nurse Jose for continuity of care.
[2020-12-09] VITALS: BP 105/63
[2020-12-09] MEDS: VANCOMYCIN 0.75 GM in IV D5W 250 ML IV SCH ×2 (01:57→10:17)
[2020-12-09] MEDS: MEROPENEM 1 G in IV NS 0.9% 100 ML IV SCH ×2 (03:03→11:39)
[2020-12-09 04:00] VITALS: BP 105/72
[2020-12-09 06:53] LABS: CREATININE 0.4 mg/dL (0.6-1.3); POTASSIUM 3.1 mmol/L (3.5-5.1)
--- NOTE | 2020-12-09 07:15 | NUR ---
RN OPENING NOTES RECEIVED PT IN BED. OPENS EYES, NONVERBAL. ON 6L O2 VIA T-PIECE WITH COOL AEROSOL. NO SOB OR ANY S/S OF RESPIRATORY DISTRESS AT THIS TIME. TELE MONITOR READS SR-ST. GTUBE POSITIVE PLACEMENT CHECKED, CLAMPED. NO RESIDUAL. SHINE CATHETER IN PLACE, DRAINING YELLOW URINE. SAFETY MEASURES IN PLACE. CALL LIGHT WITHIN REACH. BED LOCKED AND IN LOWEST POSITION WITH SIDE RAILS UP X3. HOB ELEVATED. WILL CONTINUE TO MONITOR.
[2020-12-09] MEDS: POTASSIUM CL. PREMIX PERIPHER. 50 ML IV SCH ×4 (08:22→11:20)
[2020-12-09 09:08] VITALS: BP 113/70
[2020-12-09] MEDS: DAKINS QUARTER STRENGTH (0.125%) 480 ML BOTTLE TOP SCH (09:18)
[2020-12-09] MEDS ORDERED: POTASSIUM CL. PREMIX PERIPHER. 50 ML IV SCH (11:00)
--- NOTE | 2020-12-09 11:47 | NUR ---
PER [facility] PATIENT NEGATIVE PCR.
[2020-12-09 12:00] VITALS: BP 107/75
[2020-12-09 16:00] VITALS: BP 115/70
--- NOTE | 2020-12-09 17:03 | NUR ---
RN CLOSING NOTES DISCHARGED PT TO [facility] ACCOMPANIED BY AMBULANCE CREW IN STABLE CONDITION. NO SOB OR ANY DISTRESS. PICTURE OF WOUNDS TAKEN AND PLACED IN THE CHART. AFSHAN MIDLINE MAINTAINED AND WILL BE USED IN SNF FOR CONTINUATION OF ANTIBIOTIC TREATMENT. REPORT GIVEN TO ERNESTO PIERCE.
== END 2020-12-09 16:28 | DRG 720 ==
LOC: ER 08:28 → ICU 11:56 → TELE1 12-08 10:54
PROVIDERS: ADMIT Internal Medicine; ATTEND Internal Medicine
PROC: 05HB33Z Insertion of Infusion Device into Right Basilic Vein, Percutaneous Approach (ICD-10-PCS; principal; 2020-12-06)
DX: A41.9 Sepsis, unspecified organism (principal); I63.9 Cerebral infarction, unspecified; J96.20 Acute and chronic respiratory failure, unspecified whether with hypoxia or hypercapnia; J69.0 Pneumonitis due to inhalation of food and vomit; G82.50 Quadriplegia, unspecified; G93.41 Metabolic encephalopathy; L89.154 Pressure ulcer of sacral region, stage 4; E44.0 Moderate protein-calorie malnutrition; L89.329 Pressure ulcer of left buttock, unspecified stage; F29 Unspecified psychosis not due to a substance or known physiological condition; J44.0 Chronic obstructive pulmonary disease with (acute) lower respiratory infection; Z20.822 Contact with and (suspected) exposure to COVID-19; Z79.51 Long term (current) use of inhaled steroids; Z79.899 Other long term (current) drug therapy; Z79.01 Long term (current) use of anticoagulants; Z87.820 Personal history of traumatic brain injury; Z87.440 Personal history of urinary (tract) infections; R13.10 Dysphagia, unspecified; K21.9 Gastro-esophageal reflux disease without esophagitis; Z93.0 Tracheostomy status; Z93.1 Gastrostomy status; D64.9 Anemia, unspecified; G40.909 Epilepsy, unspecified, not intractable, without status epilepticus; L97.519 Non-pressure chronic ulcer of other part of right foot with unspecified severity; N39.0 Urinary tract infection, site not specified; Z74.01 Bed confinement status; Y95 Nosocomial condition; Z87.01 Personal history of pneumonia (recurrent); R65.20 Severe sepsis without septic shock; E87.6 Hypokalemia; L03.115 Cellulitis of right lower limb; L89.899 Pressure ulcer of other site, unspecified stage; L98.419 Non-pressure chronic ulcer of buttock with unspecified severity; R29.700 NIHSS score 0
CPT/HCPCS: 31720; 36410; 36415; 71045-TC; 73620-TC; 80048-TC; 80053-TC; 80061-TC; 80202-TC; 81001; 82248-TC; 82533; 82550-TC; 82728-TC; 83605-TC; 83615-TC; 83880; 84100-TC; 84484-TC; 85025-TC; 85378-TC; 85385-TC; 85730-TC; 86140-TC; 86850-TC; 87040-TC; 87070-TC; 87081-TC; 87086-TC; 87186-TC; 94760-TC; 94799-TC; A4623; A6253; A6403; A7526; G0378; J1650; J2185; J2543; J3370; J3480; J7030; J7050; J7060; P9016; U0003

== ENCOUNTER 2021-05-27 22:40 | Inpatient (IN) | payer OTHER ==
[~2021-05-27] VITALS: Ht 165.1 cm; Wt 43.1 kg
[~2021-05-27 22:40] MED LIST changes: +ACET-2030 GT; +ACET-868 GT; -ACET325T53 GT; -ASCO500C17 GT; +ASCO500T10 GT; +BISA10SU11 RC; +CLON1TAB GT; -DEXT15DR6 OP; -DOCU-141 GT; +FERR300L GT; -HEPA100D33 SQ; +HEPA50007 SQ; +HYDR-4303 GT; +HYDR-4303 TD; +MAGN400O6 GT; +NA P133E RC; +NUTR1PAC14 GT; +POLY15DR40 EACHEYE; +QUET50TA GT; +SENN-261 GT
--- NOTE | 2021-05-27 22:45 | NUR ---
PT BIBRA 78 FROM SNF FOR HIGH HEART RATE 169 AND BLEEDING FROM TRACH. PT A/OX0; AMS. T-PIECE @ 100% TOLERATING AT 100%. STREET PHOTOGRAPHER INDWELLING F/C INTACT & DRAINING URINE. RUE CONTRACTED. SACRAL WOUND NOTED. CONNECTED PT TO POX AND MONITOR. SAFETY MEASURES IN PLACE.
[2021-05-27] MEDS ORDERED: PIPERACILLIN /TAZOBACTAM 3.375 G VIAL IV ONE (22:57)
[2021-05-27] MEDS ORDERED: ACETAMINOPHEN 650 MG/SUPP.RECT RC ONE ×2 (22:57→23:00)
[2021-05-27] MEDS ORDERED: PIPERACILLIN /TAZOBACTAM 3.375 G in IV D5W 50 ML IV ONE (23:00)
[2021-05-27] MEDS ORDERED: IV NS 0.9% 1,000 ML BAG IV ONE (23:00)
--- NOTE | 2021-05-27 23:12 | NUR ---
ESTABLISHED RAC #20G S/L; PATENT AND INTACT. COVID SWAB COLLECTED AND GIVEN TO LAB NEPHROLOGY NURSE AT PT'S BEDSIDE
--- NOTE | 2021-05-27 23:29 | NUR ---
URINE COLLECTED AND SENT TO LAB
[2021-05-27 23:35] LABS: BASOPHILS % (AUTO) 0.3 % (0.0-2.0); EOSINOPHILS % (AUTO) 2.1 % (0.0-6.0); HEMATOCRIT 33 % (39-51); HEMOGLOBIN 10.2 g/dL (13.5-17.5); LYMPHOCYTES # (AUTO) 1.5 K/uL (0.8-4.8); LYMPHOCYTES % (AUTO) 12.1 % (20.0-44.0); MEAN CORPUSCULAR HGB CONC 31 g/dl (31.0-36.0); MEAN CORPUSCULAR VOLUME 80 fL (80-96); MONOCYTES # (AUTO) 0.6 K/uL (0.1-1.30); MONOCYTES % (AUTO) 4.9 % (2.0-12.0); NEUTROPHILS % (AUTO) 80.6 % (43.0-81.0); PLATELET COUNT (AUTO) 405 K/uL (150-450); RED BLOOD CELL COUNT(AUTO) 4.08 MIL/uL (4.5-6.0); WHITE BLOOD COUNT (AUTO) 12.4 K/uL (4.3-11.0)
[2021-05-27 23:43] LABS: BILIRUBIN,URINE NEGATIVE (NEGATIVE); COLOR,URINE YELLOW (YELLOW); LEUKOCYTE ESTERASE ,URINE LARGE (NEGATIVE); NITRITE, URINE NEGATIVE (NEGATIVE); PH,URINE 8.5 (5.0-8.0); PROTEIN,URINE TRACE mg/dl (NEGATIVE); UGLUCOSE NEGATIVE (NEGATIVE); UROBILINOGEN,URINE 0.2 EU/dL (0.2)
--- NOTE | 2021-05-27 23:57 | NUR ---
POC BS 93; NOTIFIED DR. RODRI HAMILTON
[2021-05-28 00:13] LABS: WBC,URINE 21-50 /HPF (0-3)
[2021-05-28 00:14] LABS: BACTERIA,URINE Many /HPF (None Seen); SQUAMOUS EPITHELIAL CELL,UR Few /HPF (None Seen); TRIPLE PHOSPHATE CRYSTAL,UR Moderate /HPF (None Seen)
[2021-05-28 00:16] LABS: CALCIUM, SERUM 9.6 mg/dL (8.5-10.1); CARBON DIOXIDE 31 mmol/L (21-32); CHLORIDE 96 mmol/L (98-107); CREATININE 0.6 mg/dL (0.6-1.3); GLUCOSE 92 mg/dL (74-106); POTASSIUM 4.3 mmol/L (3.5-5.1); SODIUM SERUM 136 mmol/L (136-145); UREA NITROGEN, BLOOD 16 mg/dL (7-18)
[2021-05-28 00:20] LABS: ALANINE AMINOTRANSFERASE 46 U/L (12-78); ALKALINE PHOSPHATASE 116 U/L (46-116); ASPARTATE AMINOTRANSFERASE 21 U/L (15-37); BILIRUBIN,DIRECT 0.1 mg/dL (0.0-0.2); BILIRUBIN,TOTAL 0.4 mg/dL (0.2-1.0); TOTAL PROTEIN, SERUM 9.3 g/dL (6.4-8.2)
--- NOTE | 2021-05-28 00:45 | NUR ---
HOOK AND EYE MACHINE OPERATOR AT PT'S BEDSIDE
--- NOTE | 2021-05-28 00:47 | NUR ---
COVID PCR SWAB COLLECTED AND SENT TO LAB. STAVE LOG CUT OFF SAW OPERATOR AT PT'S BEDSIDE
--- NOTE | 2021-05-28 01:21 | NUR ---
LACTIC ACID 4.1; RODRI HAMILTON AWARE
[2021-05-28] MEDS ORDERED: ZOLPIDEM TARTRATE 5 MG TABLET PO PRN (01:30)
[2021-05-28] MEDS ORDERED: ACETAMINOPHEN 325 MG TABLET MC PRN (01:30)
[2021-05-28] MEDS ORDERED: MAG HYDROX/AL HYDROX/SIMETH 30 ML UDC PO PRN (01:30)
[2021-05-28] MEDS ORDERED: Z GUARD REMEDY 4 OZ OINT TP PRN (01:30)
[2021-05-28] MEDS ORDERED: JEVITY 1.2 CAL 1,000 ML BOTTLE GT SCH (01:30)
[2021-05-28] MEDS ORDERED: ACETAMINOPHEN ES 500 MG TABLET GT PRN (01:30)
[2021-05-28] MEDS ORDERED: HYDROCODONE/APAP 5/325MG TABLET GT PRN (01:30)
[2021-05-28] MEDS ORDERED: NA PHOS,M-B/NA PHOS,DI-BA 1 EA ENEMA RC PRN (01:30)
[2021-05-28] MEDS ORDERED: BISACODYL SUPP (10 MG) 10 MG/SUPP.RECT SUPP.RECT RC PRN (01:30)
[2021-05-28] MEDS ORDERED: MAGNESIUM HYDROXIDE 30 ML UDC PO PRN (01:30)
[2021-05-28] MEDS ORDERED: ACETAMINOPHEN 325 MG TABLET PO PRN (01:30)
[2021-05-28] MEDS ORDERED: ONDANSETRON HCL/PF 4 MG/2 ML VIAL IVP PRN (01:30)
[2021-05-28] MEDS ORDERED: MAGNESIUM HYDROXIDE 30 ML UDC GT PRN ×2 (01:30→03:29)
--- NOTE | 2021-05-28 03:05 | NUR ---
RN NOTE REPORT GIVEN BY KARI GREENE FOR KARI.
--- NOTE | 2021-05-28 03:05 | NUR ---
REPORT GIVEN TO MARCELLUS Atkins RN FOR KARI
[2021-05-28] MEDS ORDERED: VANCOMYCIN 1 GM VIAL ONE (03:43)
[2021-05-28] MEDS ORDERED: PIPERACILLIN /TAZOBACTAM 3.375 G VIAL IV ONE (03:44)
--- NOTE | 2021-05-28 03:49 | NUR ---
Zak vega in [facility] - 05/28/21 at 0403 by JOE US TECH AT PT'S BEDSIDE
[2021-05-28 04:00] VITALS: BP 111/48
[2021-05-28] MEDS ORDERED: POLYVINYL ALCOHOL 15 ML BOTTLE EACHEYE PRN (04:00)
[2021-05-28] MEDS ORDERED: VANCOMYCIN 1 GM in IV D5W 250ml IV ONE (04:00)
[2021-05-28] MEDS ORDERED: IPRATROPIUM NEB FS 0.5 MG/2.5 ML AMPUL.NEB NEB PRN (04:00)
--- NOTE | 2021-05-28 04:02 | NUR ---
PT TRANSFERRED TO [facility] VIA ACLS PROTOCOL. PT TOLERATED TRANSFER WELL
--- NOTE | 2021-05-28 04:15 | NUR ---
INSERTING MACHINE OPERATOR NOTES, AT 0400 RECEIVED 35 Y O MALE ADMITTED FROM ER DEPARTMENT VIA STRETCHER ACCOMPANIED BY 2 NURSES, PATIENT ADMITTED UNDER MEDICAL SERVICES OF CHARLEEN KWAN AMBULATORY TECHNOLOGIST, ADMITTING DX SEVERE SEPSIS, PATIENT WITH EXTENSIVE MEDICAL HISTORY, OBTUNDED, OPEN EYES SPONTANEOUSLY, AFEBRILE, WITH TRACH IN PLACE, T-PIECE ON 8LPM WITH O2 SAT 100%, 111/48, 110, 97.5, 22, SINUS TACHY WHEN ATTACHED TO THE TELE MONITOR, IV SITE IN RIGHT AC 20G PATENT AND INTACT, NOTICED WITH BLEEDING IN TRACH SITE PATIENT CAME LIKE THAT, CONTRACTED WITH MULTIPLE WOUNDS, RIGHT/LEFT BUTTOCKS, SACRUM, LEFT FOOT AND LE, AND RIGHT FOOT, PICTURES IN CHART, 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
[2021-05-28] MEDS: IV NS 0.9% 1,000 ML IV PRN (04:28)
[2021-05-28] MEDS ORDERED: ZOSYN IVPB 3.375 G in IV D5W 50ml IV ONE (06:00)
--- NOTE | 2021-05-28 07:18 | NUR ---
MANUFACTURING PROCESS ENGINEER NOTES, NO CHANGES IN PT CONDITION DURING SHIFT. PT IS ON T-PIECE AT 8L WITH OXYGEN SATURATION >98%. PT IS OBTUNDED. ON BALANCE AND HAIRSPRING ASSEMBLER SHOWING NSR-ST. SHINE CATH DRAINING CLOUDY YELLOW URINE. IV SITE IN RIGHT AC 20G PATENT AND INTACT. ALL SAFETY MEASURES IMPLEMENTED. WILL ENDORSE TO MORNING SHIFT RN FOR KARI.
[2021-05-28] MEDS ORDERED: PANTOPRAZOLE 40 MG TABLET.DR PO SCH (07:30)
[2021-05-28] MEDS: IPRATROPIUM NEB FS 0.5 MG/2.5 ML AMPUL.NEB NEB SCH ×3 (07:30→18:00)
--- NOTE | 2021-05-28 07:40 | NUR ---
RN OPENING NOTE RECEIVED PATIENT RESTING IN BED, OPENS EYES TO NAME, PT OBTUNDED AND CONTRACTED. ON T PIECE 8L CURRENT 02 MONITOR READING 99%. SHINE CATHETER NOTED, G TUBE NOTED RUNNING 60ML/HR OF JEVITY. IV ACCESS ON RIGHT AC 20g RUNNING NS @ 90MLS/HR. PATIENT IS ON RESTRAINTS CURRENTLY SOFT WRIST RIGHT WRIST ONLY. SAFETY MEASURES IN PLACE, BED LOCKED IN THE LOWEST POSITION, 2 SIDE RAILS UP, BED ALARM ACTIVATED. CALL LIGHT WITHIN REACH.
[2021-05-28 08:00] VITALS: BP 92/53
[2021-05-28] MEDS: CHLORHEXIDINE GLUCONATE 15 ML UDC MM SCH ×2 (08:15→17:35)
[2021-05-28] MEDS: ASCORBIC ACID 500 MG TABLET GT SCH (08:16)
[2021-05-28] MEDS: LEVETIRACETAM SOL (5 ML) 100 MG/ML UDC GT SCH ×2 (08:16→17:00)
[2021-05-28] MEDS: FERROUS SULFATE UDC 300 MG/5 ML UDC GT SCH ×2 (08:16→17:00)
[2021-05-28] MEDS: GLYCOPYRROLATE 1 MG TABLET GT SCH ×2 (08:16→17:00)
[2021-05-28] MEDS: PROSOURCE / PROSTAT (PYXIS) 30 ML UDC GT SCH ×4 (08:19→20:59)
[2021-05-28] MEDS ORDERED: Medication Not On Formulary EA (Cran/Vitc/Mannose/Inulin/Brom (Uti-Stat Liquid) 30 ML) GT SCH (09:00)
[2021-05-28] MEDS ORDERED: PREVACID (NF) 30 MG TAB GT SCH (09:00)
--- NOTE | 2021-05-28 09:44 | NUR ---
WOUND CARE CONSULT: REVIEWED CHART, NURSING DOCUMENTATION AND PHOTOS WHICH INDICATE STAGE 4 ULCER TO RT BUTTOCK, SACRAL SCARRING, SCALP SCARRING AND LOWER EXTREMITY WOUNDS AND SCARS, ALL PRESENT ON ADMISSION. DR SANTAMARIA AND DR MCNAMARA NOTIFIED OF SURGICAL AND DPM CONSULT REQUESTS. RECOMMENDATIONS MADE FOR SKIN PROTECTION INCLUDING FIRST STEP LOW AIRLOSS MATTRESS. DISCUSSED WITH NURSING STAFF. MD IN AGREEMENT WITH PLAN OF CARE.
[2021-05-28] MEDS ORDERED: ENOXAPARIN SODIUM 40 MG/0.4 ML DISP.SYRIN SQ SCH (10:00)
[2021-05-28 12:00] VITALS: BP 105/68
[2021-05-28] MEDS: PIPERACILLIN /TAZOBACTAM 3.375 G in IV D5W 50 ML IV SCH ×2 (12:28→18:01)
[2021-05-28] MEDS: VANCOMYCIN HCL 0.75 GM in IV D5W 250 ML IV SCH ×2 (14:21→22:41)
--- NOTE | 2021-05-28 15:00 | NUR ---
RN NOTE PATIENT NOTED TO HAVE G TUBE DRESSING SATURATED JEVITY. UPON REASSESSMENT ND TUBE NOTED TO BE DISLODGED. RECEIVED ORDER FROM DR AVILA TO REPLACE WITH SHINE CATHETER AND GET GI CONSULT. CATHETER PLACED, CONSULT ORDERED.
[2021-05-28 16:00] VITALS: BP 107/66
--- NOTE | 2021-05-28 16:17 | NUR ---
RN NOTE CALLED FAMILY MEMBER ELIA [phone] REGARDING CONSENT FOR WOUND DEBRIDEMENT. NOT ANSWER LEFT MESSAGE TO CALL HOSPITAL BACK.
--- NOTE | 2021-05-28 18:55 | NUR ---
RN closing NOTE RECEIVED PATIENT RESTING IN BED, OPENS EYES TO NAME, PT OBTUNDED AND CONTRACTED. ON T PIECE 8L CURRENT 02 MONITOR READING 99%. SHINE CATHETER NOTED, G TUBE BECAME DISLODGED SHINE CATHETER PLACED PEDNING GI CONSULT. IV ACCESS ON RIGHT UPPER ARM RUNNING NS @ 90MLS/HR. PATIENT IS ON RESTRAINTS CURRENTLY SOFT WRIST RIGHT WRIST ONLY. SAFETY MEASURES IN PLACE, BED LOCKED IN THE LOWEST POSITION, 2 SIDE RAILS UP, BED ALARM ACTIVATED. CALL LIGHT WITHIN REACH.WILL ENDORSE TO NIGHT NURSE FOR KARI.
--- NOTE | 2021-05-28 19:30 | NUR ---
RN NOTE PT RECEIVED IN BED. PT IS ON T-PIECE. TOLERATING WELL WITH OXYGEN SATURATION >98%. BLEEDING STILL NOTED AT TRACH SITE. PT IS NOT ALERT/ORIENTED, BUT ABLE TO OPEN EYES. ON DIRECTOR TRANSITION SHOWING NSR-ST. MULTIPLE WOUNDS NOTED. RIGHT ARM SOFT RESTRAINT NOTED. ALL SAFETY MEASURES FOLLOWED. PER ENDORSEMENT FROM DAY SHIFT, GT IS DISLODGED AND PENDING GI EVAL. RIGHT UPPER ARM ML NOTED. LINE FLUSHED, PATENT, AND INTACT WITH NO SIGNS OF INFILTRATION. ALL SAFETY MEASURES IMPLEMENTED. WILL CONTINUE TO MONITOR AND ASSESS FOR ANY CHANGES DURING SHIFT.
[2021-05-28 20:00] VITALS: BP 118/77
[2021-05-28] MEDS: SENNOSIDES 8.6 MG TABLET GT SCH (21:00)
[2021-05-28] MEDS ORDERED: DAKINS QUARTER STRENGTH (0.125%) 480 ML BOTTLE ONE (22:38)
[2021-05-28] MEDS: DAKINS QUARTER STRENGTH (0.125%) 480 ML BOTTLE TOP SCH (22:41)
[2021-05-29] VITALS: BP 108/64
[2021-05-29] MEDS: IPRATROPIUM NEB FS 0.5 MG/2.5 ML AMPUL.NEB NEB SCH ×5 (00:30→23:18)
--- NOTE | 2021-05-29 00:30 | NUR ---
RT NOTE TX NOT GIVEN DUE TO PENDING PCR RESULTS. NO SOB NOTED.
[2021-05-29] MEDS: PIPERACILLIN /TAZOBACTAM 3.375 G in IV D5W 50 ML IV SCH ×5 (00:47→23:37)
[2021-05-29 04:00] VITALS: BP 99/67
[2021-05-29 04:50] LABS: BASOPHILS % (AUTO) 0.3 % (0.0-2.0); EOSINOPHILS % (AUTO) 5.6 % (0.0-6.0); HEMATOCRIT 24 % (39-51); HEMOGLOBIN 7.7 g/dL (13.5-17.5); LYMPHOCYTES # (AUTO) 1.1 K/uL (0.8-4.8); MEAN CORPUSCULAR HGB CONC 33 g/dl (31.0-36.0); MEAN CORPUSCULAR VOLUME 80 fL (80-96); MONOCYTES # (AUTO) 0.7 K/uL (0.1-1.30); NEUTROPHILS # (AUTO) 5.8 K/uL (1.8-8.9); NEUTROPHILS % (AUTO) 72.1 % (43.0-81.0); PLATELET COUNT (AUTO) 302 K/uL (150-450); RED BLOOD CELL COUNT(AUTO) 2.96 MIL/uL (4.5-6.0); WHITE BLOOD COUNT (AUTO) 8.1 K/uL (4.3-11.0)
[2021-05-29] MEDS: IV NS 0.9% 1,000 ML IV PRN (06:01)
--- NOTE | 2021-05-29 06:26 | NUR ---
RN NOTE NO CHANGES IN PT CONDITION DURING SHIFT. PT IS ON T-PIECE. TOLERATING WELL WITH OXYGEN SATURATION >98%. BLEEDING STILL NOTED AT TRACH SITE. ON DIRECTOR EHS SHOWING NSR-ST. WOUND CARE DONE ORDERED. RIGHT UPPER ARM ML NOTED. LINE FLUSHED, PATENT, AND INTACT WITH NO SIGNS OF INFILTRATION. 0.9% NS RUNNING AT 90 CC/HR. WAITING FOR VANCO TROUGH TO BE PROCESSED IN ORDER TO START VANCOMYCIN 0530 DOSE. ALL SAFETY MEASURES IMPLEMENTED. WILL ENDORSE TO MORNING SHIFT RN FOR KARI.
--- NOTE | 2021-05-29 07:16 | NUR ---
RN OPENING NOTE RECEIVE REPORT FROM COST AND RISK ANALYSIS MANAGER NURSE. PATIENT IN STABLE CONDITION WITH NO SIGN OF DISTRESS. RESTING COMFORTABLY IN BED AND RECEIVING IV FLUID 0.9% NS @ 90ML/HR. HEMOGLOBIN 7.7. WILL FOLLOW UP AM LAB AND DOCTOR ORDERS. PROPER ISOLATION PRECAUTION IN PLACE. ALL SAFETY MEASURE IN PLACE. BED ON LOWEST POSITION WITH HOB ELEVATED AND 3 SIDE RAIL UP. JHON LIGHT WITHIN REACH. WILL CONTINUE TO MONITOR.
[2021-05-29 08:00] VITALS: BP 119/86
[2021-05-29] MEDS: THERAHONEY GEL 1.5 OZ TUBE TP SCH (08:01)
[2021-05-29] MEDS: DAKINS QUARTER STRENGTH (0.125%) 480 ML BOTTLE TOP SCH (08:02)
[2021-05-29] MEDS: ASCORBIC ACID 500 MG TABLET GT SCH (09:00)
[2021-05-29] MEDS: FERROUS SULFATE UDC 300 MG/5 ML UDC GT SCH ×2 (09:00→16:26)
[2021-05-29] MEDS: GLYCOPYRROLATE 1 MG TABLET GT SCH ×2 (09:00→16:27)
[2021-05-29] MEDS: PROSOURCE / PROSTAT (PYXIS) 30 ML UDC GT SCH ×5 (09:00→21:09)
[2021-05-29] MEDS: PANTOPRAZOLE 40 MG VIAL IV SCH (09:11)
[2021-05-29] MEDS: CHLORHEXIDINE GLUCONATE 15 ML UDC MM SCH ×2 (09:11→16:29)
[2021-05-29] MEDS: LEVETIRACETAM (500MG) 1,000 MG in IV NS 0.9% 100 ML IV SCH ×2 (10:06→22:32)
--- NOTE | 2021-05-29 10:51 | NUR ---
RN NOTE MULTIPLE AM MEDS WAS NOT GIVEN VIA G-TUBE. G-TUBE DISLODGE
[2021-05-29 12:00] VITALS: BP 104/70
[2021-05-29 12:41] LABS: HEMOGLOBIN 8.6 g/dL (13.5-17.5)
[2021-05-29 12:59] LABS: CALCIUM, SERUM 9.1 mg/dL (8.5-10.1); CREATININE 0.6 mg/dL (0.6-1.3); MAGNESIUM 1.9 mg/dL (1.8-2.4); PHOSPHORUS 3.5 mg/dL (2.5-4.9); POTASSIUM 3.4 mmol/L (3.5-5.1)
[2021-05-29] MEDS: VANCOMYCIN HCL 0.75 GM in IV D5W 250 ML IV SCH ×2 (13:22→21:11)
[2021-05-29 16:00] VITALS: BP 110/70
--- NOTE | 2021-05-29 19:37 | NUR ---
RN OPENING NOTE RECEIVED PATIENT IN BED, OPENS EYES, A/OX0 OBTUNDED AND CONTRACTED. ON T PIECE 6L AND PT TOLERATED WELL. IV ACCESS ON RT UPPER ARM INTACT AND PATENT NO S/S INFILTRATIONS. RUNNING NS@90CC/HR. GTUBE DISLODGED. PENDING GI CONSULT. ON RESTRAINTS CURRENTLY SOFT WRIST RIGHT WRIST ONLY. NO FACIAL GRIMACING NOTED. ALL SAFETY MEASURES IN PLACE, BED IN THE LOWEST POSITION AND LOCKED. SIDE RAILS UPX2, BED ALARM ON. PLACE CALL LIGHT WITHIN REACH.WILL CONTINUE TO MONITOR.
[2021-05-29 20:00] VITALS: BP 114/73
--- NOTE | 2021-05-29 20:01 | NUR ---
RN CLOSING NOTE REPORT WAS GIVEN TO AIRPORT RAMP ATTENDANT NURSE. PATIENT IN STABLE CONDITION WITH NO SIGN OF DISTRESS. PROPER ISOLATION IN PLACE. ALL SAFETY MEASURE IN PLACE. BED ON LOWEST POSITION WITH HOB ELEVATED. CALL LIGHT WITHIN REACH.
[2021-05-29 20:21] LABS: HEMOGLOBIN 9.1 g/dL (13.5-17.5)
[2021-05-29] MEDS: SENNOSIDES 8.6 MG TABLET GT SCH (21:15)
--- NOTE | 2021-05-29 21:15 | NUR ---
RN NOTES: PROSTAT AND SENOKOT ON HOLD DUE TO GTUBE DISLODGED. GI CONSULT PENDING. WILL CONTINUE TO MONITOR
[2021-05-30] VITALS: BP 117/64
[2021-05-30] MEDS: IV NS 0.9% 1,000 ML IV PRN (00:33)
[2021-05-30 03:32] LABS: HEMOGLOBIN 8.7 g/dL (13.5-17.5)
[2021-05-30 03:42] LABS: CALCIUM, SERUM 8.7 mg/dL (8.5-10.1); CREATININE 0.6 mg/dL (0.6-1.3); POTASSIUM 3.1 mmol/L (3.5-5.1)
[2021-05-30 04:00] VITALS: BP 113/39
[2021-05-30] MEDS: VANCOMYCIN HCL 0.75 GM in IV D5W 250 ML IV SCH ×3 (04:40→20:47)
[2021-05-30] MEDS: IPRATROPIUM NEB FS 0.5 MG/2.5 ML AMPUL.NEB NEB SCH ×3 (05:16→18:00)
[2021-05-30] MEDS: PIPERACILLIN /TAZOBACTAM 3.375 G in IV D5W 50 ML IV SCH ×4 (05:51→23:45)
--- NOTE | 2021-05-30 06:50 | NUR ---
RN CLOSING NOTES: PATIENT IN BED, OPENS BOTH EYES, A/OX0 OBTUNDED AND CONTRACTED. ON T PIECE 6L, O2 SAT 100% AND PT TOLERATED WELL. STILL NOTED BLEEDING SECRETION IN THE TRACH. IV ACCESS ON RT UPPER ARM MIDLINE #18G, INTACT AND PATENT NO S/S INFILTRATIONS. RUNNING NS@90CC/HR. GTUBE DISLODGED. PENDING GI CONSULT. RESTRAINTS ON SOFT WRIST RIGHT HAND ONLY. NO FACIAL GRIMACING NOTED. ALL DUE MEDS GIVEN ORDER. ALL SAFETY MEASURES IN PLACE, BED IN THE LOWEST POSITION AND LOCKED. SIDE RAILS UPX2, BED ALARM ON. PLACE CALL LIGHT WITHIN REACH.WILL ENDORSE TO MORNING SHIFT NURSE. .
--- NOTE | 2021-05-30 07:29 | NUR ---
RN OPENING NOTE RECEIVED PATIENT RESTING IN BED, OPENS EYES TO NAME, PT OBTUNDED AND CONTRACTED. ON T PIECE 6L CURRENT 02 MONITOR READING 99%. SHINE CATHETER NOTED, G TUBE NOTED ENDORSED PENDING GI CONSULT DUE TO GTUBE BEING DISLODGED.. IV ACCESS ON RIGHT UPPER ARM ML RUNNING NS @ 90MLS/HR. PATIENT IS ON RESTRAINTS CURRENTLY SOFT WRIST RIGHT WRIST ONLY. SAFETY MEASURES IN PLACE, BED LOCKED IN THE LOWEST POSITION, 2 SIDE RAILS UP, BED ALARM ACTIVATED. CALL LIGHT WITHIN REACH.
[2021-05-30 08:00] VITALS: BP 121/77
[2021-05-30] MEDS: GLYCOPYRROLATE 1 MG TABLET GT SCH ×2 (09:00→16:22)
[2021-05-30] MEDS ORDERED: POTASSIUM CHLORIDE 20 MEQ TAB.PRT.SR PO SCH (09:00)
[2021-05-30] MEDS: FERROUS SULFATE UDC 300 MG/5 ML UDC GT SCH ×2 (09:00→16:22)
[2021-05-30] MEDS: PROSOURCE / PROSTAT (PYXIS) 30 ML UDC GT SCH ×5 (09:00→20:44)
[2021-05-30] MEDS: ASCORBIC ACID 500 MG TABLET GT SCH (09:00)
[2021-05-30] MEDS: CHLORHEXIDINE GLUCONATE 15 ML UDC MM SCH ×2 (09:19→17:41)
[2021-05-30] MEDS: PANTOPRAZOLE 40 MG VIAL IV SCH (09:19)
[2021-05-30] MEDS: DAKINS QUARTER STRENGTH (0.125%) 480 ML BOTTLE TOP SCH (09:26)
[2021-05-30] MEDS: THERAHONEY GEL 1.5 OZ TUBE TP SCH (09:27)
[2021-05-30 09:39] LABS: BASOPHILS % (AUTO) 0.1 % (0.0-2.0); EOSINOPHILS % (AUTO) 3.4 % (0.0-6.0); HEMATOCRIT 26 % (39-51); HEMOGLOBIN 8.5 g/dL (13.5-17.5); LYMPHOCYTES # (AUTO) 0.8 K/uL (0.8-4.8); LYMPHOCYTES % (AUTO) 9.9 % (20.0-44.0); MEAN CORPUSCULAR HGB CONC 32 g/dl (31.0-36.0); MEAN CORPUSCULAR VOLUME 80 fL (80-96); MONOCYTES # (AUTO) 0.8 K/uL (0.1-1.30); MONOCYTES % (AUTO) 9.9 % (2.0-12.0); NEUTROPHILS % (AUTO) 76.7 % (43.0-81.0); PLATELET COUNT (AUTO) 340 K/uL (150-450); RED BLOOD CELL COUNT(AUTO) 3.31 MIL/uL (4.5-6.0); WHITE BLOOD COUNT (AUTO) 7.8 K/uL (4.3-11.0)
--- NOTE | 2021-05-30 09:42 | NUR ---
RN NOTE PATIENT NOTED TO HAVE A G TUBE SITE HOWEVER SHINE IN PLPACE DUE TO IT BECOMING DISLODGED. DISCUSSED WITH DR GONZALEZ FOR GTUBE MEDICATION. PER DOCTOR SWITCH PO/GT MEDS TO IV. WILL FOLLOW ORDER
--- NOTE | 2021-05-30 09:45 | NUR ---
RN NOTE DR. EPPERSON INFORMED OF PATIENTS G TUBE CONDITION. GI CONSULT PENDING
--- NOTE | 2021-05-30 10:00 | NUR ---
RN NOTE RECEIVED CALL FROM PHARMACY TO PLACE ORDER FOR BACTROBAN BID FOR [address].
[2021-05-30 10:01] LABS: CREATININE 0.6 mg/dL (0.6-1.3); POTASSIUM 3.1 mmol/L (3.5-5.1)
[2021-05-30 10:07] LABS: ALBUMIN 2.4 g/dL (3.4-5.0); BILIRUBIN,TOTAL 0.6 mg/dL (0.2-1.0); TOTAL PROTEIN, SERUM 7.8 g/dL (6.4-8.2)
[2021-05-30] MEDS: LEVETIRACETAM (500MG) 1,000 MG in IV NS 0.9% 100 ML IV SCH ×2 (10:17→21:01)
[2021-05-30] MEDS: POTASSIUM CL. PREMIX PERIPHER. 50 ML IV SCH ×4 (10:45→14:34)
[2021-05-30 12:00] VITALS: BP 142/83
--- NOTE | 2021-05-30 13:04 | NUR ---
RN NOTE CALLED FAMILY REGARDING CONSENT FOR WOUND DEBRIDEMENT. NO ANSWER LEFT MESSAGE Addendum: 05/30/21 at 1305 by EDITA NESS RN Amended: Links added.
[2021-05-30 16:00] VITALS: BP 119/83
[2021-05-30] MEDS: MUPIROCIN OINT 2% 22 GM TUBE TP SCH (17:41)
--- NOTE | 2021-05-30 18:39 | NUR ---
RN CLOSING NOTES: PATIENT IN BED, OPENS BOTH EYES, A/OX0 OBTUNDED AND CONTRACTED. ON T PIECE 6L, O2 SAT 100% AND PT TOLERATED WELL. STILL NOTED BLEEDING SECRETION IN THE TRACH. IV ACCESS ON RT UPPER ARM MIDLINE #18G, INTACT AND PATENT NO S/S INFILTRATIONS. RUNNING NS@90CC/HR. GTUBE DISLODGED. PENDING GI CONSULT. RESTRAINTS ON SOFT WRIST RIGHT HAND ONLY. NO FACIAL GRIMACING NOTED. ALL SAFETY MEASURES IN PLACE, BED IN THE LOWEST POSITION AND LOCKED. SIDE RAILS UPX2, BED ALARM ON. PLACE CALL LIGHT WITHIN REACH.WILL ENDORSE TO HOBBIES AND CRAFTS SALES REPRESENTATIVE NURSE. .
--- NOTE | 2021-05-30 19:00 | NUR ---
RN NOTE RECEIVED PATIENT IN BED RESTING,OBTUNED CONTRACTED ON T PIECE 6L OXYGEN O2 97% IV SITE IS ON RIGHT UPPER ARM MIDLINE INTACT PATENT ON IV HYDRATION NS 90CC/HR RUNNING,G-TUBE IS DISLODGED PENDING FOR GI CONSULT,SHINE CATHETER IN PLACE URINE DRAINING YELLOW/CLEAR BY GRAVITY.SAFETY MEASURE IMPLEMENT HEAD OF THE BED ELEVATED,BED IN LOW POSITION AND LOCKED,CONTINUE TO MONITOR
[2021-05-30 20:00] VITALS: BP 112/67
[2021-05-30] MEDS: SENNOSIDES 8.6 MG TABLET GT SCH (21:01)
[2021-05-31] VITALS: BP 101/62
[2021-05-31] MEDS: IV NS 0.9% 1,000 ML IV PRN ×2 (00:03→11:42)
[2021-05-31 04:00] VITALS: BP 103/65
[2021-05-31] MEDS: VANCOMYCIN HCL 0.75 GM in IV D5W 250 ML IV SCH ×3 (04:57→22:00)
[2021-05-31] MEDS: PIPERACILLIN /TAZOBACTAM 3.375 G in IV D5W 50 ML IV SCH ×3 (05:30→17:47)
[2021-05-31] MEDS: IPRATROPIUM NEB FS 0.5 MG/2.5 ML AMPUL.NEB NEB SCH ×4 (06:00→18:00)
[2021-05-31 06:17] LABS: BASOPHILS % (AUTO) 0.4 % (0.0-2.0); EOSINOPHILS % (AUTO) 4.3 % (0.0-6.0); HEMATOCRIT 23 % (39-51); HEMOGLOBIN 7.5 g/dL (13.5-17.5); LYMPHOCYTES # (AUTO) 0.8 K/uL (0.8-4.8); MEAN CORPUSCULAR HGB CONC 32 g/dl (31.0-36.0); MEAN CORPUSCULAR VOLUME 81 fL (80-96); MONOCYTES # (AUTO) 0.8 K/uL (0.1-1.30); MONOCYTES % (AUTO) 11.4 % (2.0-12.0); NEUTROPHILS # (AUTO) 5.1 K/uL (1.8-8.9); NEUTROPHILS % (AUTO) 71.9 % (43.0-81.0); PLATELET COUNT (AUTO) 325 K/uL (150-450); RED BLOOD CELL COUNT(AUTO) 2.89 MIL/uL (4.5-6.0); WHITE BLOOD COUNT (AUTO) 7.1 K/uL (4.3-11.0)
[2021-05-31 07:13] LABS: BILIRUBIN,TOTAL 0.5 mg/dL (0.2-1.0); CALCIUM, SERUM 8.6 mg/dL (8.5-10.1); CREATININE 0.7 mg/dL (0.6-1.3); TOTAL PROTEIN, SERUM 6.4 g/dL (6.4-8.2)
--- NOTE | 2021-05-31 07:36 | NUR ---
RN OPENING NOTE RECEIVED PATIENT IN BED ASLEEP, A/O X0, CONTRACTED. ON T PIECE 6L OXYGEN O2 SATURATION 97% IV SITE IS ON RIGHT UPPER ARM MIDLINE INTACT PATENT ON IV HYDRATION NS 90CC/HR RUNNING, G-TUBE IS DISLODGED PENDING GI CONSULT, NO S/S OF DISTRESS OR CHEST DISCOMFORT. NO SOB, BREATHING EXPANSION SYMMETRICAL. SAFETY MEASURES IMPLEMENTED, HEAD OF THE BED ELEVATED, BED IN LOW POSITION AND LOCKED, WILL CONTINUE TO MONITOR
[2021-05-31 08:00] VITALS: BP 104/74
[2021-05-31] MEDS: ASCORBIC ACID 500 MG TABLET GT SCH (09:00)
[2021-05-31] MEDS: FERROUS SULFATE UDC 300 MG/5 ML UDC GT SCH ×2 (09:00→16:15)
[2021-05-31] MEDS: PROSOURCE / PROSTAT (PYXIS) 30 ML UDC GT SCH ×4 (09:00→21:00)
[2021-05-31] MEDS: GLYCOPYRROLATE 1 MG TABLET GT SCH ×2 (09:00→16:16)
[2021-05-31] MEDS: THERAHONEY GEL 1.5 OZ TUBE TP SCH (09:42)
[2021-05-31] MEDS: CHLORHEXIDINE GLUCONATE 15 ML UDC MM SCH ×2 (09:42→16:18)
[2021-05-31] MEDS: DAKINS QUARTER STRENGTH (0.125%) 480 ML BOTTLE TOP SCH (09:42)
[2021-05-31] MEDS: MUPIROCIN OINT 2% 22 GM TUBE TP SCH ×2 (09:42→16:17)
[2021-05-31] MEDS: POTASSIUM CL. PREMIX PERIPHER. 50 ML IV SCH ×4 (09:56→12:37)
[2021-05-31] MEDS: PANTOPRAZOLE 40 MG VIAL IV SCH (09:56)
[2021-05-31] MEDS: LEVETIRACETAM (500MG) 1,000 MG in IV NS 0.9% 100 ML IV SCH ×2 (09:56→22:51)
--- NOTE | 2021-05-31 09:58 | NUR ---
RN NOTES PER MD, HOLD GT MEDS UNTIL EGD AND GI CONSULT IS DONE. PATIENT'S GT IS DISLODGED AND CANNOT PUSH MEDS IN.
[2021-05-31 11:39] LABS: BILIRUBIN,URINE NEGATIVE (NEGATIVE); COLOR,URINE YELLOW (YELLOW); LEUKOCYTE ESTERASE ,URINE MODERATE (NEGATIVE); NITRITE, URINE NEGATIVE (NEGATIVE); PROTEIN,URINE NEGATIVE (NEGATIVE); UGLUCOSE NEGATIVE (NEGATIVE); UROBILINOGEN,URINE 0.2 EU/dL (0.2)
[2021-05-31 12:00] VITALS: BP 103/75
[2021-05-31 12:16] LABS: BACTERIA,URINE FEW /HPF (None Seen); SQUAMOUS EPITHELIAL CELL,UR FEW /HPF (None Seen)
[2021-05-31 16:00] VITALS: BP 117/69
--- NOTE | 2021-05-31 19:02 | NUR ---
RN CLOSING NOTE PATIENT REMAINS ON OBTUNDED CONTRACTED ON 6L T-PIECE O2:100% NO SOB NOT ACUTE DISTRESS NOTED ALL IV MEDS GIVEN MD ORDERED,KEPT CLEAN AND DRY ALL THE TIME,KEPT COMFORTABLE,KEPT HEAD OF THE BED ELEVATED ALL NEEDS MET ENDORSE NEXT COMING SHIFT FOR CONTINUATION OF CARE.
--- NOTE | 2021-05-31 19:35 | NUR ---
RN OPENING NOTES RECEIVED CARE OF PATIENT FROM AM NURSE WHILE PATIENT SLEEPING, A/O X0, OPENS EYES TO LIGHT PAINFUL STIMULI, CONTRACTED. PATIENT ON T-PIECE AT 6L/MIN, O2 SAT 100%, NO SOB NOTED, NO SIGNS OF RESPIRATORY DISTRESS. PATIENT NOTED WITH IV SITE, RIGHT UPPER ARM MIDLINE, IV SITE IS INTACT AND PATENT WITH IV NS RUNNING AT 90 ML/HR, G-TUBE NOTED TO BE DISLODGED, PENDING GI CONSULT, PENDING EGD. NO SIGNIFICANT FINDINGS UPON INITIAL NURSING ASSESSMENTS. ALL SAFETY MEASURES IMPLEMENTED, HEAD OF THE BED ELEVATED, BED IN LOW POSITION AND LOCKED. WILL CONTINUE TO MONITOR PATIENT.
[2021-05-31 20:00] VITALS: BP 130/83
--- NOTE | 2021-05-31 21:00 | NUR ---
RN NOTE WILL HOLD ALL GT MEDICATIONS PER MD ORDERS, HOLD GT MEDS UNTIL EGD AND GI CONSULT IS DONE. PATIENT'S GT IS DISLODGED AND CANNOT PUSH MEDS IN. WILL CONTINUE TO MONITOR PATIENT.
[2021-05-31] MEDS: SENNOSIDES 8.6 MG TABLET GT SCH (22:00)
[2021-06-01] VITALS (9 sets, daily range): BP systolic 97–137; BP diastolic 52–80
[2021-06-01] MEDS: PIPERACILLIN /TAZOBACTAM 3.375 G in IV D5W 50 ML IV SCH ×4 (00:22→18:04)
[2021-06-01] MEDS: IV NS 0.9% 1,000 ML IV PRN (02:01)
[2021-06-01] MEDS: VANCOMYCIN HCL 0.75 GM in IV D5W 250 ML IV SCH ×3 (04:48→22:29)
[2021-06-01] MEDS: IPRATROPIUM NEB FS 0.5 MG/2.5 ML AMPUL.NEB NEB SCH ×4 (06:00→18:00)
[2021-06-01 06:31] LABS: BASOPHILS % (AUTO) 0.5 % (0.0-2.0); EOSINOPHILS % (AUTO) 6.8 % (0.0-6.0); HEMATOCRIT 23 % (39-51); HEMOGLOBIN 7.2 g/dL (13.5-17.5); LYMPHOCYTES # (AUTO) 1.2 K/uL (0.8-4.8); LYMPHOCYTES % (AUTO) 16.9 % (20.0-44.0); MEAN CORPUSCULAR HGB CONC 31 g/dl (31.0-36.0); MEAN CORPUSCULAR VOLUME 81 fL (80-96); MONOCYTES # (AUTO) 0.8 K/uL (0.1-1.30); MONOCYTES % (AUTO) 10.9 % (2.0-12.0); NEUTROPHILS # (AUTO) 4.8 K/uL (1.8-8.9); NEUTROPHILS % (AUTO) 64.9 % (43.0-81.0); PLATELET COUNT (AUTO) 347 K/uL (150-450); RED BLOOD CELL COUNT(AUTO) 2.82 MIL/uL (4.5-6.0); WHITE BLOOD COUNT (AUTO) 7.3 K/uL (4.3-11.0)
--- NOTE | 2021-06-01 07:19 | NUR ---
RN CLOSING NOTES ENDORSED CARE OF PATIENT TO AM NURSE WHILE PATIENT SLEEPING, A/O X0, OPENS EYES TO LIGHT PAINFUL STIMULI, CONTRACTED. PATIENT REMAINS STABLE THROUGHOUT SHIFT. NO SIGNIFICANT FINDINGS UPON ALL NURSING ASSESSMENTS. G TUBE DISLODGED, PENDING EGD. ALL PATIENT NEEDS ATTENDED TO. ALL SAFETY MEASURES IMPLEMENTED, HEAD OF THE BED ELEVATED, BED IN LOW POSITION AND LOCKED. ENDORSE TO AM NURSE FOR KARI.
--- NOTE | 2021-06-01 07:25 | NUR ---
RN OPENING NOTE RECEIVED PATIENT RESTING IN BED, OPENS EYES TO NAME, PT OBTUNDED AND CONTRACTED. ON T PIECE 6L CURRENT 02 MONITOR READING 99%. SHINE CATHETER NOTED, G TUBE NOTED . IV ACCESS ON RIGHT UPPER ARM ML RUNNING NS @ 90MLS/HR. PATIENT IS ON RESTRAINTS CURRENTLY SOFT WRIST RIGHT WRIST ONLY. SAFETY MEASURES IN PLACE, BED LOCKED IN THE LOWEST POSITION, 2 SIDE RAILS UP, BED ALARM ACTIVATED. CALL LIGHT WITHIN REACH.
[2021-06-01 07:53] LABS: BILIRUBIN,TOTAL 0.5 mg/dL (0.2-1.0); CALCIUM, SERUM 8.2 mg/dL (8.5-10.1); CREATININE 0.6 mg/dL (0.6-1.3); TOTAL PROTEIN, SERUM 6.8 g/dL (6.4-8.2)
[2021-06-01 08:12] LABS: POTASSIUM 2.6 mmol/L (3.5-5.1)
[2021-06-01] MEDS: FERROUS SULFATE UDC 300 MG/5 ML UDC GT SCH ×2 (09:00→17:00)
[2021-06-01] MEDS: PROSOURCE / PROSTAT (PYXIS) 30 ML UDC GT SCH ×4 (09:00→21:00)
[2021-06-01] MEDS ORDERED: PANTOPRAZOLE 40 MG/PACK PACK GT SCH (09:00)
[2021-06-01] MEDS: ASCORBIC ACID 500 MG TABLET GT SCH (09:00)
[2021-06-01] MEDS: GLYCOPYRROLATE 1 MG TABLET GT SCH ×2 (09:00→17:00)
--- NOTE | 2021-06-01 09:00 | NUR ---
RN NOTE AM [place] MEDS HELD.PT PENDING GTUBE PLACEMENT .
[2021-06-01] MEDS: POTASSIUM CL. PREMIX PERIPHER. 50 ML IV SCH ×11 (09:24→21:28)
[2021-06-01] MEDS: PANTOPRAZOLE 40 MG VIAL IV SCH ×2 (09:24→17:22)
[2021-06-01] MEDS: CHLORHEXIDINE GLUCONATE 15 ML UDC MM SCH ×2 (09:24→17:22)
[2021-06-01] MEDS: THERAHONEY GEL 1.5 OZ TUBE TP SCH (09:25)
[2021-06-01] MEDS: MUPIROCIN OINT 2% 22 GM TUBE TP SCH ×2 (09:25→17:23)
[2021-06-01] MEDS: DAKINS QUARTER STRENGTH (0.125%) 480 ML BOTTLE TOP SCH (09:25)
[2021-06-01] MEDS: LEVETIRACETAM (500MG) 1,000 MG in IV NS 0.9% 100 ML IV SCH ×2 (10:46→22:57)
--- NOTE | 2021-06-01 12:55 | NUR ---
telecommunication operator note per pharmacist ok to run together k and vancomycin ,stated its compatible will f\u aware that will administering i unit prbc for 3 hour and then will cont to administering kcl ,patient has only one iv access
--- NOTE | 2021-06-01 13:07 | NUR ---
RN NOTE VANCOMYCIN DUE 1330, LAST TROUGH DRAWN 05/29/2021 0400. PER LAB GIVE VANCO AND PATIENT WILL BE DRAWN THIS AFTERNOON FOR TROUGH.
--- NOTE | 2021-06-01 15:06 | NUR ---
RN NOTE ORDER PLACED FOR BLOOD TRANSFUSION. WILL HOLD ADMINISTRATION OF POTASSIUM DUE TO PATIENT HAVING ONLY MIDLINE ACCESS. WILL RESUME POTASSIUM ONCE INFUSION IS DONE.
--- NOTE | 2021-06-01 19:03 | NUR ---
RN CLOSING NOTES: PATIENT IN BED, OPENS BOTH EYES, A/OX0 OBTUNDED AND CONTRACTED. ON T PIECE 6L, O2 SAT 100% AND PT TOLERATED WELL. STILL NOTED BLEEDING SECRETION IN THE TRACH. IV ACCESS ON RT UPPER ARM MIDLINE #18G, INTACT AND PATENT NO S/S INFILTRATIONS. RUNNING NS@90CC/HR. GTUBE DISLODGED. PENDING GI CONSULT. RESTRAINTS ON SOFT WRIST RIGHT HAND ONLY. NO FACIAL GRIMACING NOTED. ALL SAFETY MEASURES IN PLACE, BED IN THE LOWEST POSITION AND LOCKED. SIDE RAILS UPX2, BED ALARM ON. PLACE CALL LIGHT WITHIN REACH.WILL ENDORSE TO SENIOR PRODUCTION SUPERVISOR NURSE.
--- NOTE | 2021-06-01 19:20 | NUR ---
RN OPENING NOTES RECEIVED CARE OF PATIENT FROM AM NURSE WHILE PATIENT SLEEPING, A/O X0, OPENS EYES TO LIGHT PAINFUL STIMULI, OBTUNDED, CONTRACTED. PATIENT ON T-PIECE AT 3 L/MIN, O2 SAT 98%, NO SOB NOTED, NO SIGNS OF RESPIRATORY DISTRESS. PATIENT NOTED WITH IV SITE, RIGHT UPPER ARM MIDLINE, IV SITE IS INTACT AND PATENT WITH POTASSIUM CHLORIDE INFUSING AT THIS TIME, WILL ADMINISTER LAST TWO BAGS FOR A TOTAL OF 80 MEq. G-TUBE NOTED TO BE DISLODGED, PENDING GI CONSULT, PENDING EGD. NO SIGNIFICANT FINDINGS UPON INITIAL NURSING ASSESSMENTS. ALL SAFETY MEASURES IMPLEMENTED, HEAD OF THE BED ELEVATED, BED IN LOW POSITION AND LOCKED. WILL CONTINUE TO MONITOR PATIENT.
[2021-06-01 20:28] LABS: HEMOGLOBIN 9.3 g/dL (13.5-17.5)
[2021-06-01] MEDS: SENNOSIDES 8.6 MG TABLET GT SCH (21:57)
--- NOTE | 2021-06-01 22:00 | NUR ---
RN NOTES PM GTUBE MEDS HELD. PT PENDING GTUBE PLACEMENT.
--- NOTE | 2021-06-01 23:00 | NUR ---
RN NOTES TOTAL OF 8 POTASSIUM CHLORIDE 10 MEQ/50 ML BAGS GIVEN FOR A TOTAL OF 80 MEQ ADMINISTERED.
[2021-06-02] VITALS: BP 107/64
[2021-06-02] MEDS: PIPERACILLIN /TAZOBACTAM 3.375 G in IV D5W 50 ML IV SCH ×4 (00:15→18:16)
[2021-06-02] MEDS: IV NS 0.9% 1,000 ML IV PRN ×2 (00:33→21:33)
[2021-06-02 04:00] VITALS: BP 108/58
[2021-06-02] MEDS: VANCOMYCIN HCL 0.75 GM in IV D5W 250 ML IV SCH ×3 (04:36→21:11)
[2021-06-02] MEDS: IPRATROPIUM NEB FS 0.5 MG/2.5 ML AMPUL.NEB NEB SCH ×5 (06:00→20:01)
--- NOTE | 2021-06-02 07:00 | NUR ---
RN CLOSING NOTES WILL ENDORSE CARE OF PATIENT TO AM NURSE WHILE PATIENT SLEEPING, A/O X0, OPENS EYES TO TOUCH,OBTUNDED, CONTRACTED. PATIENT REMAINED STABLE THROUGHOUT SHIFT. NO SIGNIFICANT FINDINGS UPON ALL NURSING ASSESSMENTS. G TUBE DISLODGED, PENDING EGD. ALL PATIENT NEEDS ATTENDED TO. ALL SAFETY MEASURES IMPLEMENTED, HEAD OF THE BED ELEVATED, BED IN LOW POSITION AND LOCKED. WILL ENDORSE TO AM NURSE FOR KARI.
[2021-06-02 07:06] LABS: BASOPHILS % (AUTO) 0.5 % (0.0-2.0); EOSINOPHILS % (AUTO) 4.5 % (0.0-6.0); HEMATOCRIT 31 % (39-51); LYMPHOCYTES # (AUTO) 1.2 K/uL (0.8-4.8); LYMPHOCYTES % (AUTO) 12.4 % (20.0-44.0); MEAN CORPUSCULAR HGB CONC 32 g/dl (31.0-36.0); MEAN CORPUSCULAR VOLUME 81 fL (80-96); NEUTROPHILS # (AUTO) 7.1 K/uL (1.8-8.9); NEUTROPHILS % (AUTO) 72.6 % (43.0-81.0); PLATELET COUNT (AUTO) 373 K/uL (150-450); RED BLOOD CELL COUNT(AUTO) 3.83 MIL/uL (4.5-6.0); WHITE BLOOD COUNT (AUTO) 9.7 K/uL (4.3-11.0)
--- NOTE | 2021-06-02 07:30 | NUR ---
MANAGER VIDEO GAMES AM NOTES PT IN BED, A/O X0, OPENS EYES TO LIGHT PAINFUL STIMULI, OBTUNDED, CONTRACTED. PATIENT ON T-PIECE AT 3 L/MIN, O2 SAT 100%, BREATHING EVEN AND UNLABORED. NOT IN ANY DISTRESS, SUCTION IN PLACE. SR HR 75 ON MONITOR. NO SIGNS OF PAIN OR DISCOMFORT. AFSHAN MIDLINE WITH ONGOING NS AT 90 ML/HR INFUSING WELL.SITE CLEAR. GT SITE WITH TEMP SHINE CATH IN PLACE. PENDING EGD/PEG PLACEMENT C/O DR. KIRBY, WAS NOT DONE YESTERDAY. MD AWARE. SHINE CATH IN PLACE. DRAINING CLEAR YELLOW URINE ADEQUATE AMOUNT. SEE NURSING FLOWSHEET FOR SKIN ISSUES. WILL PERFORM PRESCRIBED WOUND TREATMENT. RIGHT WRIST RESTRAINT REMOVED AND CHECKED FOR CIRCULATION THEN Q 2 HOURS. WILL TURN AND REPOSITION Q 2HOURS. HOB ELEVATED. SAFETY MEASURES IN PLACE, BED LOW LOCKED, WILL CONT TO MONITOR.
[2021-06-02 07:32] LABS: ALBUMIN 2.1 g/dL (3.4-5.0); BILIRUBIN,TOTAL 0.7 mg/dL (0.2-1.0); CALCIUM, SERUM 8.4 mg/dL (8.5-10.1); CREATININE 0.8 mg/dL (0.6-1.3); POTASSIUM 3.4 mmol/L (3.5-5.1); TOTAL PROTEIN, SERUM 6.9 g/dL (6.4-8.2)
[2021-06-02 08:00] VITALS: BP 112/72
[2021-06-02] MEDS: GLYCOPYRROLATE 1 MG TABLET GT SCH ×2 (09:00→17:00)
[2021-06-02] MEDS: ASCORBIC ACID 500 MG TABLET GT SCH (09:00)
[2021-06-02] MEDS: PROSOURCE / PROSTAT (PYXIS) 30 ML UDC GT SCH ×4 (09:00→21:11)
[2021-06-02] MEDS: FERROUS SULFATE UDC 300 MG/5 ML UDC GT SCH ×2 (09:00→17:00)
--- NOTE | 2021-06-02 09:30 | NUR ---
RN NOTES UNABLE TO ADMINISTER GT MEDS. AWAITING EGD AND PEG PLACEMENT.
[2021-06-02] MEDS ORDERED: ANESTHESIA TRAY IN PYXIS 1 EA TRAY MC ONE (09:43)
[2021-06-02] MEDS: PANTOPRAZOLE 40 MG VIAL IV SCH ×2 (09:54→18:16)
[2021-06-02] MEDS: CHLORHEXIDINE GLUCONATE 15 ML UDC MM SCH ×2 (09:54→18:17)
[2021-06-02] MEDS: MUPIROCIN OINT 2% 22 GM TUBE TP SCH ×2 (09:55→18:17)
[2021-06-02] MEDS: DAKINS QUARTER STRENGTH (0.125%) 480 ML BOTTLE TOP SCH (09:55)
[2021-06-02] MEDS: THERAHONEY GEL 1.5 OZ TUBE TP SCH (09:56)
[2021-06-02] MEDS: LEVETIRACETAM (500MG) 1,000 MG in IV NS 0.9% 100 ML IV SCH ×2 (09:58→22:26)
[2021-06-02] MEDS: POTASSIUM CL. PREMIX PERIPHER. 50 ML IV SCH ×2 (10:01→11:36)
[2021-06-02 12:00] VITALS: BP 128/83
--- NOTE | 2021-06-02 12:16 | NUR ---
RN NOTES PER DR. RAMÍREZ, PATIENT FOR EGD/PEG PLACEMENT TOMORROW BY DR. KIRBY
[2021-06-02 16:00] VITALS: BP 132/71
--- NOTE | 2021-06-02 17:40 | NUR ---
RN NOTES POTASSIUM CORRECTED. DR. KIRBY AND SURGERY STAFF AT BEDSIDE FOR EGD/ PEG PLACEMENT.
--- NOTE | 2021-06-02 17:51 | NUR ---
RN NOTES S/P EGD AND PEG PLACEMENT BY DR. KIRBY RESUME TUBE FEEDING
--- NOTE | 2021-06-02 19:30 | NUR ---
RN NOTES CONTINUATION OF CARE. URINE OUTPUT ON DAYSHIFT = 1200 ML
[2021-06-02 20:00] VITALS: BP 131/78
[2021-06-02 20:09] LABS: HEMOGLOBIN 10.3 g/dL (13.5-17.5)
[2021-06-02] MEDS: JEVITY 1.2 CAL 1,000 ML BOTTLE GT SCH (21:12)
[2021-06-02] MEDS: SENNOSIDES 8.6 MG TABLET GT SCH (22:25)
[2021-06-03] VITALS: BP 136/66
[2021-06-03] MEDS: PIPERACILLIN /TAZOBACTAM 3.375 G in IV D5W 50 ML IV SCH ×4 (00:25→17:36)
[2021-06-03] MEDS: IPRATROPIUM NEB FS 0.5 MG/2.5 ML AMPUL.NEB NEB SCH ×4 (01:02→19:48)
[2021-06-03 04:00] VITALS: BP 126/64
[2021-06-03] MEDS: VANCOMYCIN HCL 0.75 GM in IV D5W 250 ML IV SCH ×3 (04:56→21:49)
--- NOTE | 2021-06-03 06:30 | NUR ---
DIRECTOR OF OPERATIONS FOR THERAPY CLOSING NOTES PT RESTING COMFORTABLY, A/O X0, OPENS EYES TO LIGHT PAINFUL STIMULI, OBTUNDED, CONTRACTED. PATIENT ON T-PIECE AT 3 L/MIN, O2 SAT 100%, BREATHING EVEN AND UNLABORED. NOT IN ANY DISTRESS, SUCTION IN PLACE. SR HR 91 ON MONITOR. NO SIGNS OF PAIN OR DISCOMFORT. AFSHAN MIDLINE WITH ONGOING NS AT 90 ML/HR INFUSING WELL.SITE CLEAR. S/P EGD AND PEG PLACEMENT 06/02/[address] KIRBY. ONGOING GTF AT 60 ML/HR. O RESIDUAL. SHINE CATH IN PLACE. DRAINING CLEAR YELLOW URINE OUTPUT 1200 ML. PERFORMED AM CARE AND PRESCRIBED WOUND TREATMENT EARLIER. RIGHT WRIST RESTRAINT REMOVED AND CHECKED FOR CIRCULATION Q 2 HOURS. TURNED AND REPOSITIONED Q 2 HOURS. HOB ELEVATED. SAFETY MEASURES IN PLACE, BED LOW LOCKED, ALL NEEDS MET AT THIS TIME. WILL ENDORSE TO NEXT SHIFT FOR KARI.
[2021-06-03] MEDS ORDERED: MAG HYDROX/AL HYDROX/SIMETH 30 ML UDC TP PRN (07:01)
[2021-06-03 07:11] LABS: BASOPHILS # (AUTO) 0.1 K/uL (0.0-0.2); BASOPHILS % (AUTO) 0.5 % (0.0-2.0); EOSINOPHILS % (AUTO) 2.6 % (0.0-6.0); HEMATOCRIT 30 % (39-51); HEMOGLOBIN 9.4 g/dL (13.5-17.5); LYMPHOCYTES # (AUTO) 1.4 K/uL (0.8-4.8); LYMPHOCYTES % (AUTO) 11.3 % (20.0-44.0); MEAN CORPUSCULAR HGB CONC 32 g/dl (31.0-36.0); MEAN CORPUSCULAR VOLUME 80 fL (80-96); MONOCYTES # (AUTO) 1.1 K/uL (0.1-1.30); MONOCYTES % (AUTO) 8.7 % (2.0-12.0); NEUTROPHILS # (AUTO) 9.7 K/uL (1.8-8.9); NEUTROPHILS % (AUTO) 76.9 % (43.0-81.0); PLATELET COUNT (AUTO) 413 K/uL (150-450); RED BLOOD CELL COUNT(AUTO) 3.71 MIL/uL (4.5-6.0); WHITE BLOOD COUNT (AUTO) 12.7 K/uL (4.3-11.0)
[2021-06-03 07:26] LABS: BILIRUBIN,TOTAL 0.4 mg/dL (0.2-1.0); CALCIUM, SERUM 8.1 mg/dL (8.5-10.1); CREATININE 0.8 mg/dL (0.6-1.3); POTASSIUM 3.1 mmol/L (3.5-5.1); TOTAL PROTEIN, SERUM 6.6 g/dL (6.4-8.2)
--- NOTE | 2021-06-03 07:30 | NUR ---
RN CLOSING NOTE PT RESTING COMFORTABLY, A/O X0, OPENS EYES TO LIGHT PAINFUL STIMULI, OBTUNDED, CONTRACTED. PATIENT ON T-PIECE AT 3 L/MIN, O2 SAT 100%, BREATHING EVEN AND UNLABORED. NOT IN ANY DISTRESS, SUCTION IN PLACE. SR HR 88 ON MONITOR. NO SIGNS OF PAIN OR DISCOMFORT. AFSHAN MIDLINE WITH ONGOING NS AT 90 ML/HR INFUSING WELL.SITE CLEAR. S/P EGD AND PEG PLACEMENT 06/02/[address] KIRBY. ONGOING GTF AT 60 ML/HR. O RESIDUAL. SHINE CATH IN PLACE. DRAINING CLEAR YELLOW URINE. RIGHT WRIST RESTRAINT REMOVED AND CHECKED FOR CIRCULATION Q 2 HOURS. TURNED AND REPOSITIONED Q 2 HOURS. HOB ELEVATED. SAFETY MEASURES IN PLACE, BED LOW LOCKED. WILL CONTINUE TO MONITOR.. Addendum: 06/03/21 at 1406 by ROWDY CURRY RN RN OPENING NOTE NOT CLOSING NOTE
[2021-06-03 08:00] VITALS: BP 138/66
[2021-06-03] MEDS: CHLORHEXIDINE GLUCONATE 15 ML UDC MM SCH ×2 (08:11→16:42)
[2021-06-03] MEDS: FERROUS SULFATE UDC 300 MG/5 ML UDC GT SCH ×2 (08:11→16:42)
[2021-06-03] MEDS: LEVETIRACETAM SOL (5 ML) 100 MG/ML UDC GT SCH ×2 (08:11→21:48)
[2021-06-03] MEDS: ASCORBIC ACID 500 MG TABLET GT SCH (08:11)
[2021-06-03] MEDS: GLYCOPYRROLATE 1 MG TABLET GT SCH ×2 (08:11→16:42)
[2021-06-03] MEDS: PROSOURCE / PROSTAT (PYXIS) 30 ML UDC GT SCH ×4 (08:11→21:51)
[2021-06-03] MEDS: MUPIROCIN OINT 2% 22 GM TUBE TP SCH (08:12)
[2021-06-03] MEDS: PANTOPRAZOLE 40 MG VIAL IV SCH ×2 (08:12→16:42)
[2021-06-03] MEDS: DAKINS QUARTER STRENGTH (0.125%) 480 ML BOTTLE TOP SCH (08:12)
[2021-06-03] MEDS: THERAHONEY GEL 1.5 OZ TUBE TP SCH (08:12)
[2021-06-03] MEDS: POTASSIUM CL. PREMIX PERIPHER. 50 ML IV SCH ×4 (08:13→12:27)
[2021-06-03 12:00] VITALS: BP 111/66
[2021-06-03] MEDS: IV NS 0.9% 1,000 ML IV PRN (14:31)
[2021-06-03 16:00] VITALS: BP 125/74
[2021-06-03 16:54] LABS: CALCIUM, SERUM 8.2 mg/dL (8.5-10.1); CREATININE 0.9 mg/dL (0.6-1.3)
[2021-06-03 18:30] LABS: POTASSIUM 3.4 mmol/L (3.5-5.1)
--- NOTE | 2021-06-03 18:36 | NUR ---
RN CLOSING NOTE PATIENT REMAINED STABLE THROUGHOUT SHIFT. PT RESTING COMFORTABLY, A/O X0, OPENS EYES TO LIGHT PAINFUL STIMULI, OBTUNDED, CONTRACTED. PATIENT ON T-PIECE AT 3 L/MIN, O2 SAT 99%, BREATHING EVEN AND UNLABORED. NOT IN ANY DISTRESS, SUCTION IN PLACE. SR HR 92 ON MONITOR. NO SIGNS OF PAIN OR DISCOMFORT. AFSHAN MIDLINE WITH ONGOING NS AT 90 ML/HR INFUSING WELL.SITE CLEAR. S/P EGD AND PEG PLACEMENT 06/02/[address] KIRBY. GTUBE INTACT AND PATENT. FEEDING STOPPED AFTER 20HRS PER MD ORDER. O RESIDUAL. SHINE CATH IN PLACE. DRAINING CLEAR YELLOW URINE. RIGHT WRIST RESTRAINT REMOVED AND CHECKED FOR CIRCULATION Q 2 HOURS. ALL NEEDS MET AND DUE MEDS ADMINISTERED PER ORDERS. TURNED AND REPOSITIONED Q 2 HOURS. HOB ELEVATED. SAFETY MEASURES IN PLACE, BED LOW LOCKED. WILL ENDORSE TO LOCAL AREA NETWORK ADMINISTRATOR RN.
--- NOTE | 2021-06-03 19:37 | NUR ---
RN OPENING NOTE PT RESTING IN BED WITH EYES ON T PIECE VENT, 3L O2 SAT 100%, BREATHING EVEN AND UNLABORED. NOT IN ANY DISTRESS, SUCTION IN PLACE. SR HR 86 ON MONITOR. NO SIGNS OF PAIN OR DISCOMFORT. AFSHAN MIDLINE WITH ONGOING NS AT 90 ML/HR INFUSING WELL.SITE CLEAR. G TUBE IN PLACE, ONGOING GTF AT 60 ML/HR. O RESIDUAL. SHINE CATH IN PLACE. DRAINING CLEAR YELLOW URINE. RIGHT WRIST RESTRAINT IN PLACE, WILL CONTINUE TO MONITOR PATIENT THROUGHOUT THE NIGHT.
[2021-06-03 20:00] VITALS: BP 132/73
[2021-06-03 20:36] LABS: HEMOGLOBIN 9.4 g/dL (13.5-17.5)
[2021-06-03] MEDS: SENNOSIDES 8.6 MG TABLET GT SCH (21:49)
[2021-06-04] VITALS: BP 130/82
[2021-06-04] MEDS: PIPERACILLIN /TAZOBACTAM 3.375 G in IV D5W 50 ML IV SCH ×3 (00:24→11:55)
[2021-06-04] MEDS: IPRATROPIUM NEB FS 0.5 MG/2.5 ML AMPUL.NEB NEB SCH ×4 (01:39→19:48)
[2021-06-04 04:00] VITALS: BP 124/78
[2021-06-04] MEDS: VANCOMYCIN HCL 0.75 GM in IV D5W 250 ML IV SCH ×2 (05:03→13:31)
[2021-06-04] MEDS: ACETAMINOPHEN 650 MG/SUPP.RECT RC PRN ×2 (05:04→20:42)
--- NOTE | 2021-06-04 06:04 | NUR ---
RN NOTE RE ASSESSED TEMP 98.4
[2021-06-04] MEDS: IV NS 0.9% 1,000 ML IV PRN ×2 (06:06→22:28)
--- NOTE | 2021-06-04 06:42 | NUR ---
RN NOTE PATIENT KEPT DRY AND CLEAN THROUGHOUT THE NIGHT, PHOTOS TAKEN OF THE WOUND, AND WOUND CARE PROVIDED. ALL PATIENT NEEDS MET, WILL ENDORSE TO AM NURSE FOR CONTINUITY OF CARE.
[2021-06-04 07:09] LABS: BASOPHILS % (AUTO) 0.3 % (0.0-2.0); HEMATOCRIT 23 % (39-51); HEMOGLOBIN 7.3 g/dL (13.5-17.5); LYMPHOCYTES # (AUTO) 1.2 K/uL (0.8-4.8); LYMPHOCYTES % (AUTO) 8.9 % (20.0-44.0); MEAN CORPUSCULAR HGB CONC 32 g/dl (31.0-36.0); MEAN CORPUSCULAR VOLUME 82 fL (80-96); MONOCYTES # (AUTO) 1.2 K/uL (0.1-1.30); MONOCYTES % (AUTO) 9.1 % (2.0-12.0); NEUTROPHILS # (AUTO) 10.3 K/uL (1.8-8.9); NEUTROPHILS % (AUTO) 78.7 % (43.0-81.0); PLATELET COUNT (AUTO) 391 K/uL (150-450); RED BLOOD CELL COUNT(AUTO) 2.82 MIL/uL (4.5-6.0); WHITE BLOOD COUNT (AUTO) 13.1 K/uL (4.3-11.0)
--- NOTE | 2021-06-04 07:20 | NUR ---
SEAM RUBBING MACHINE OPERATOR NOTE RECEIVED PATIENT ON BED WITH SPONTANEOUS EYE OPENING. PATIENT IS NON-VERBAL, WITH BOTH LOWER EXTREMITIES AND LEFT UPPER EXTREMITY CONTRACTURES. WITH RIGHT HAND ON SOFT WRIST RESTRAINT, WITH GOOD CIRCUALTION NOTED. PATIENT WITH TRACH TO T-PIECE WITH OXYGEN AT 5LPM SATURATING AT 95% WITH NO SIGNS AND SYMPTOMS OF DISTRESS. WITH G-TUBE STILL AWATING MD INSTRUCTION TO START FEEDING. WITH RIGHT UPPER ARM MIDLINE WITH NS RUNNING AT 90ML/HR, INFUSING WELL. ON MODERATE TO HIGH BACK REST. SAFETY MEASURES ENSURED WITH BED ON LOWEST LOCKED POSITION, SIDERAILS RAISED AND CALL LIGHT WITHIN REACH AT ALL TIMES. WILL CONTINUE TO MONITOR PATIENT.
[2021-06-04 08:00] VITALS: BP 96/63
[2021-06-04 08:32] LABS: ALBUMIN 1.9 g/dL (3.4-5.0); BILIRUBIN,TOTAL 0.4 mg/dL (0.2-1.0); CALCIUM, SERUM 8.4 mg/dL (8.5-10.1); CREATININE 0.8 mg/dL (0.6-1.3); TOTAL PROTEIN, SERUM 6.5 g/dL (6.4-8.2)
[2021-06-04] MEDS: ASCORBIC ACID 500 MG TABLET GT SCH (08:39)
[2021-06-04] MEDS: PANTOPRAZOLE 40 MG VIAL IV SCH ×2 (08:39→17:39)
[2021-06-04] MEDS: GLYCOPYRROLATE 1 MG TABLET GT SCH ×2 (08:39→17:39)
[2021-06-04] MEDS: LEVETIRACETAM SOL (5 ML) 100 MG/ML UDC GT SCH ×2 (08:40→21:06)
[2021-06-04] MEDS: FERROUS SULFATE UDC 300 MG/5 ML UDC GT SCH ×2 (08:40→17:40)
[2021-06-04] MEDS: CHLORHEXIDINE GLUCONATE 15 ML UDC MM SCH ×2 (08:40→17:39)
[2021-06-04 08:46] LABS: POTASSIUM 2.6 mmol/L (3.5-5.1)
--- NOTE | 2021-06-04 08:46 | NUR ---
k level 2.6 was notified and orders obtained
[2021-06-04] MEDS ORDERED: POTASSIUM CHLORIDE 20 MEQ TAB.PRT.SR PO SCH (09:00)
[2021-06-04] MEDS: JEVITY 1.2 CAL 1,000 ML BOTTLE GT SCH (09:58)
--- NOTE | 2021-06-04 09:59 | NUR ---
MANAGEMENT SERVICES TECHNICIAN NOTE G-TUBE FEEDING STARTED ORDERED BY DR. HAND, FEEDING STARTED AT 30ML/HR. WILL CONTINUE TO MONITOR PATIENT.
[2021-06-04] MEDS: DAKINS QUARTER STRENGTH (0.125%) 480 ML BOTTLE TOP SCH (10:22)
[2021-06-04] MEDS: THERAHONEY GEL 1.5 OZ TUBE TP SCH (10:23)
[2021-06-04] MEDS: POTASSIUM CHLORIDE 20 MEQ POWDER PACKET PO SCH ×2 (10:31→17:39)
[2021-06-04] MEDS: PROSOURCE / PROSTAT (PYXIS) 30 ML UDC GT SCH ×4 (10:32→21:08)
[2021-06-04 12:00] VITALS: BP 109/78
--- NOTE | 2021-06-04 12:35 | NUR ---
HIDE COOKING OPERATOR NOTE PATIENT SEEN BY ID MD. REFERRED PATIENT ORDERED BY DR. HAND. WILL CONTINUE TO MONITOR PATIENT.
[2021-06-04 16:00] VITALS: BP 118/65
[2021-06-04] MEDS: HYDROGEL DRESSING 90 GM TUBE TP SCH (17:39)
[2021-06-04 18:34] LABS: BILIRUBIN,URINE NEGATIVE (NEGATIVE); COLOR,URINE YELLOW (YELLOW); LEUKOCYTE ESTERASE ,URINE SMALL (NEGATIVE); NITRITE, URINE NEGATIVE (NEGATIVE); PROTEIN,URINE NEGATIVE (NEGATIVE); UGLUCOSE NEGATIVE (NEGATIVE); UROBILINOGEN,URINE 0.2 EU/dL (0.2)
[2021-06-04 18:49] LABS: BACTERIA,URINE RARE /HPF (None Seen); SQUAMOUS EPITHELIAL CELL,UR 0-2 /HPF (None Seen)
[2021-06-04 18:50] LABS: YEAST,URINE Moderate /HPF (None Seen)
--- NOTE | 2021-06-04 19:05 | NUR ---
FINANCIAL SERVICES INTERN NOTE PATIENT ON BED WITH SPONTANEOUS EYE OPENING. PATIENT IS NON-VERBAL, WITH BOTH LOWER EXTREMITIES AND LEFT UPPER EXTREMITY CONTRACTURES. WITH RIGHT HAND ON SOFT WRIST RESTRAINT, WITH GOOD CIRCUALTION NOTED. PATIENT WITH TRACH TO T-PIECE WITH OXYGEN AT 5LPM SATURATING AT 95% WITH NO SIGNS AND SYMPTOMS OF DISTRESS. WITH G-TUBE FEEDING STARTED, TOLERATED WELL. WITH RIGHT UPPER ARM MIDLINE WITH NS RUNNING AT 90ML/HR, INFUSING WELL. ON MODERATE TO HIGH BACK REST. SAFETY MEASURES ENSURED WITH BED ON LOWEST LOCKED POSITION, SIDERAILS RAISED AND CALL LIGHT WITHIN REACH AT ALL TIMES. WILL ENDORSE TO NEXT SHIFT FOR CONTINUITY OF CARE.
--- NOTE | 2021-06-04 19:21 | NUR ---
RN OPENING NOTE RECEIVED PATIENT IN BED RESTING, WITH T PIECE, SATURATING 100%, BREATHING EVEN AND UNLABORED. NOT IN ANY DISTRESS, SUCTION IN PLACE. SR HR IN THE 80S ON MONITOR. NO SIGNS OF PAIN OR DISCOMFORT. AFSHAN MIDLINE WITH ONGOING NS AT 90 ML/HR INFUSING G TUBE IN PLACE, NOW RESTARTED. SHINE CATH IN PLACE. DRAINING CLEAR YELLOW URINE. RIGHT WRIST RESTRAINT IN PLACE, WILL CONTINUE TO MONITOR PATIENT THROUGHOUT THE NIGHT.
[2021-06-04 19:57] LABS: HEMOGLOBIN 8.5 g/dL (13.5-17.5)
[2021-06-04 20:00] VITALS: BP 113/74
[2021-06-04 20:51] LABS: BILIRUBIN,DIRECT 0.1 mg/dL (0.0-0.2)
[2021-06-04] MEDS: SENNOSIDES 8.6 MG TABLET GT SCH (21:06)
[2021-06-04] MEDS: MEROPENEM 1 G in IV NS 0.9% 100 ML IV SCH (21:06)
--- NOTE | 2021-06-04 21:42 | NUR ---
RN NOTE RE ASSESSED PATIENT FEVER AFTER ONE HR OF ADMINISTERING TYLENOL IT WAS 98.2
[2021-06-05] VITALS: BP 148/91
[2021-06-05] MEDS: IPRATROPIUM NEB FS 0.5 MG/2.5 ML AMPUL.NEB NEB SCH ×4 (01:45→20:00)
[2021-06-05 04:00] VITALS: BP 129/74
--- NOTE | 2021-06-05 04:15 | NUR ---
RN NOTE PT HAD 100.5 FEVER , GAVE SPONGE BATH.
--- NOTE | 2021-06-05 05:00 | NUR ---
RN NOTE PATIENTS TEMP AT 99.8
[2021-06-05] MEDS: JEVITY 1.2 CAL 1,000 ML BOTTLE GT SCH (05:28)
[2021-06-05] MEDS: MEROPENEM 1 G in IV NS 0.9% 100 ML IV SCH ×2 (05:28→12:30)
--- NOTE | 2021-06-05 07:25 | NUR ---
RN CLOSING NOTE PATIENT RESTING IN BED WITH T PIECE TRACH. NO MAJOR CHANGES THROUGHOUT THE NIGHT, WILL ENDORSE PLAN OF CARE TO AM NURSE.
--- NOTE | 2021-06-05 07:30 | NUR ---
RN OPENING NOTE PT RESTING IN BED WITH EYES ON T PIECE VENT, 3L O2 SAT 100%, BREATHING EVEN AND UNLABORED. NOT IN ANY DISTRESS, SUCTION IN PLACE. SR HR 90'S ON MONITOR. NO SIGNS OF PAIN OR DISCOMFORT. AFSHAN MIDLINE WITH ONGOING NS AT 90 ML/HR INFUSING WELL.SITE CLEAR. G TUBE IN PLACE, ONGOING GTF AT 60 ML/HR. O RESIDUAL. SHINE CATH IN PLACE. DRAINING CLEAR YELLOW URINE. RIGHT WRIST RESTRAINT IN PLACE, WILL CONTINUE TO MONITOR..
[2021-06-05 08:00] VITALS: BP 111/72
[2021-06-05] MEDS: ASCORBIC ACID 500 MG TABLET GT SCH (09:12)
[2021-06-05] MEDS: PROSOURCE / PROSTAT (PYXIS) 30 ML UDC GT SCH ×4 (09:12→21:46)
[2021-06-05] MEDS: FERROUS SULFATE UDC 300 MG/5 ML UDC GT SCH ×2 (09:12→17:25)
[2021-06-05] MEDS: LEVETIRACETAM SOL (5 ML) 100 MG/ML UDC GT SCH ×2 (09:12→21:44)
[2021-06-05] MEDS: POTASSIUM CHLORIDE 20 MEQ POWDER PACKET PO SCH ×2 (09:12→17:26)
[2021-06-05] MEDS: PANTOPRAZOLE 40 MG VIAL IV SCH ×2 (09:13→17:26)
[2021-06-05] MEDS: CHLORHEXIDINE GLUCONATE 15 ML UDC MM SCH ×2 (09:13→17:25)
[2021-06-05] MEDS: GLYCOPYRROLATE 1 MG TABLET GT SCH ×2 (09:13→17:26)
[2021-06-05] MEDS: HYDROGEL DRESSING 90 GM TUBE TP SCH (09:26)
[2021-06-05] MEDS: THERAHONEY GEL 1.5 OZ TUBE TP SCH (09:27)
[2021-06-05 12:00] VITALS: BP 114/93
[2021-06-05 12:08] LABS: BASOPHILS % (AUTO) 0.3 % (0.0-2.0); EOSINOPHILS % (AUTO) 4.3 % (0.0-6.0); HEMATOCRIT 29 % (39-51); LYMPHOCYTES # (AUTO) 0.9 K/uL (0.8-4.8); MEAN CORPUSCULAR HGB CONC 31 g/dl (31.0-36.0); MEAN CORPUSCULAR VOLUME 82 fL (80-96); MONOCYTES # (AUTO) 0.9 K/uL (0.1-1.30); MONOCYTES % (AUTO) 8.6 % (2.0-12.0); NEUTROPHILS # (AUTO) 7.8 K/uL (1.8-8.9); NEUTROPHILS % (AUTO) 77.8 % (43.0-81.0); PLATELET COUNT (AUTO) 429 K/uL (150-450); RED BLOOD CELL COUNT(AUTO) 3.52 MIL/uL (4.5-6.0); WHITE BLOOD COUNT (AUTO) 10.1 K/uL (4.3-11.0)
[2021-06-05] MEDS: IV NS 0.9% 1,000 ML IV PRN (12:30)
[2021-06-05 12:43] LABS: BILIRUBIN,TOTAL 0.2 mg/dL (0.2-1.0); CALCIUM, SERUM 8.5 mg/dL (8.5-10.1); CREATININE 0.8 mg/dL (0.6-1.3); TOTAL PROTEIN, SERUM 7.2 g/dL (6.4-8.2)
[2021-06-05] MEDS: D5W IV SCH (14:49)
[2021-06-05] MEDS: TOBRAMYCIN IV SCH (14:49)
[2021-06-05 16:52] VITALS: BP 140/94
--- NOTE | 2021-06-05 18:42 | NUR ---
RN CLOSING NOTE PATIENT REMAINED STABLE THROUGHOUT SHIFT. PT RESTING IN BED WITH EYES OPEN T PIECE VENT, 3L O2 SAT 100%, BREATHING EVEN AND UNLABORED. NOT IN ANY DISTRESS, SUCTION IN PLACE. SR HR 90'S ON MONITOR. NO SIGNS OF PAIN OR DISCOMFORT. AFSHAN MIDLINE WITH ONGOING NS AT 90 ML/HR INFUSING WELL.SITE CLEAR. G TUBE IN PLACE, ONGOING GTF AT 60 ML/HR. O RESIDUAL. SHINE CATH IN PLACE. DRAINING CLEAR YELLOW URINE. RIGHT WRIST RESTRAINT IN PLACE. ALL SAFETY MEASURES NOTED AND ACCOUNTED FOR. ALL NEEDS MET AND MEDS ADMINISTERED PER MD ORDER. BED IN LOW POSITION. WHEELS LOCKED IN PLACE AND CALL LIGHT WITHIN REACH. WILL ENDORSE TO IT BUSINESS ANALYST RN.
--- NOTE | 2021-06-05 19:20 | NUR ---
RN OPENING NOTE RECEIVED PATIENT RESTING IN BED WITH EYES ON T PIECE VENT, 3L O2 SAT 100%, BREATHING EVEN AND UNLABORED. NOT IN ANY DISTRESS, SUCTION IN PLACE. SR HR 90'S ON MONITOR. NO SIGNS OF PAIN OR DISCOMFORT. AFSHAN MIDLINE WITH ONGOING NS AT 90 ML/HR INFUSING WELL.SITE CLEAR. G TUBE IN PLACE, ONGOING GTF AT 60 ML/HR. RIGHT ARM RESTRAINT IN BED, WILL CHECK AND REASSESSES FOR CIRCULATION ORDERED. SHINE CATH IN PLACE. DRAINING CLEAR YELLOW URINE.ALL SAFETY MEASURES IN PLACE. WILL CONTINUE TO MONITOR PATIENT
[2021-06-05 20:00] VITALS: BP 125/89
[2021-06-05 20:15] LABS: HEMOGLOBIN 9.5 g/dL (13.5-17.5)
[2021-06-05] MEDS: ACETAMINOPHEN 650 MG/SUPP.RECT RC PRN (21:45)
[2021-06-05] MEDS: SENNOSIDES 8.6 MG TABLET GT SCH (21:45)
[2021-06-06] VITALS: BP 134/78
[2021-06-06] MEDS: IPRATROPIUM NEB FS 0.5 MG/2.5 ML AMPUL.NEB NEB SCH ×4 (01:29→19:26)
[2021-06-06] MEDS: IV NS 0.9% 1,000 ML IV PRN ×2 (02:41→18:32)
[2021-06-06 05:00] VITALS: BP 95/62
--- NOTE | 2021-06-06 06:21 | NUR ---
RN CLOSING NOTES ALL PATIENTS NEEDS MET THROUGHOUT THE NIGHT, WILL ENDORSE PLAN OF CARE TO AM NURSE.
--- NOTE | 2021-06-06 07:44 | NUR ---
RN OPENING NOTE RECEIVED PATIENT RESTING IN BED OPENDS EYES ON T PIECE VENT, 3L O2 SAT 100%, BREATHING EVEN AND UNLABORED. NOT IN ANY DISTRESS, SUCTION IN PLACE. NO SIGNS OF PAIN OR DISCOMFORT. AFSHAN MIDLINE WITH ONGOING NS AT 90 ML/HR INFUSING WELL.SITE CLEAR. G TUBE IN PLACE, ONGOING GTF AT 60 ML/HR. RIGHT ARM RESTRAINT. SHINE CATH IN PLACE.ALL SAFETY MEASURES IN PLACE.
[2021-06-06 07:46] LABS: BILIRUBIN,TOTAL 0.3 mg/dL (0.2-1.0); CALCIUM, SERUM 8.7 mg/dL (8.5-10.1); CREATININE 0.8 mg/dL (0.6-1.3); POTASSIUM 3.5 mmol/L (3.5-5.1)
[2021-06-06] MEDS: TOBRAMYCIN 80 MG/2 ML VIAL INH SCH ×2 (07:53→15:40)
[2021-06-06 08:00] VITALS: BP 111/70
[2021-06-06 08:14] LABS: BASOPHILS % (AUTO) 0.5 % (0.0-2.0); EOSINOPHILS % (AUTO) 6.2 % (0.0-6.0); HEMATOCRIT 29 % (39-51); HEMOGLOBIN 8.8 g/dL (13.5-17.5); LYMPHOCYTES # (AUTO) 0.9 K/uL (0.8-4.8); LYMPHOCYTES % (AUTO) 10.3 % (20.0-44.0); MEAN CORPUSCULAR HGB CONC 31 g/dl (31.0-36.0); MEAN CORPUSCULAR VOLUME 87 fL (80-96); MONOCYTES # (AUTO) 0.7 K/uL (0.1-1.30); MONOCYTES % (AUTO) 8.2 % (2.0-12.0); NEUTROPHILS # (AUTO) 6.5 K/uL (1.8-8.9); NEUTROPHILS % (AUTO) 74.8 % (43.0-81.0); PLATELET COUNT (AUTO) 379 K/uL (150-450); RED BLOOD CELL COUNT(AUTO) 3.31 MIL/uL (4.5-6.0); WHITE BLOOD COUNT (AUTO) 8.7 K/uL (4.3-11.0)
[2021-06-06] MEDS: ASCORBIC ACID 500 MG TABLET GT SCH (09:20)
[2021-06-06] MEDS: LEVETIRACETAM SOL (5 ML) 100 MG/ML UDC GT SCH ×2 (09:20→21:47)
[2021-06-06] MEDS: PANTOPRAZOLE 40 MG VIAL IV SCH ×2 (09:20→16:31)
[2021-06-06] MEDS: GLYCOPYRROLATE 1 MG TABLET GT SCH ×2 (09:21→16:30)
[2021-06-06] MEDS: POTASSIUM CHLORIDE 20 MEQ POWDER PACKET PO SCH ×2 (09:21→16:30)
[2021-06-06] MEDS: CHLORHEXIDINE GLUCONATE 15 ML UDC MM SCH ×2 (09:21→16:30)
[2021-06-06] MEDS: FERROUS SULFATE UDC 300 MG/5 ML UDC GT SCH ×2 (09:21→16:30)
[2021-06-06] MEDS: THERAHONEY GEL 1.5 OZ TUBE TP SCH (09:22)
[2021-06-06] MEDS: PROSOURCE / PROSTAT (PYXIS) 30 ML UDC GT SCH ×4 (09:22→21:55)
[2021-06-06] MEDS: HYDROGEL DRESSING 90 GM TUBE TP SCH (09:23)
[2021-06-06 12:00] VITALS: BP 121/67
[2021-06-06] MEDS: JEVITY 1.2 CAL 1,000 ML BOTTLE GT SCH (13:17)
[2021-06-06] MEDS: D5W IV SCH (15:49)
[2021-06-06] MEDS: TOBRAMYCIN IV SCH (15:49)
--- NOTE | 2021-06-06 15:56 | NUR ---
RN NOTE PATIENTS SHINE REPLACED 16FR IN PLACE, NO COMPLICATIONS
[2021-06-06 16:00] VITALS: BP 128/83
--- NOTE | 2021-06-06 19:06 | NUR ---
RN closing NOTE RECEIVED PATIENT RESTING IN BED OPENDS EYES ON T PIECE VENT, 3L O2 SAT 100%, BREATHING EVEN AND UNLABORED. NOT IN ANY DISTRESS, SUCTION IN PLACE. NO SIGNS OF PAIN OR DISCOMFORT. AFSHAN MIDLINE WITH ONGOING NS AT 90 ML/HR INFUSING WELL.SITE CLEAR. G TUBE IN PLACE, ONGOING GTF AT 60 ML/HR. RIGHT ARM RESTRAINT. SHINE CATH IN PLACE.ALL SAFETY MEASURES IN PLACE. SHINE CATHETERS CHANGED AND ALL MEDICATIONS GIVEN. WILL ENDORSE TO NIGHT NURSE FOR KARI.
[2021-06-06 20:00] VITALS: BP 114/97
--- NOTE | 2021-06-06 20:15 | NUR ---
RN NOTE RECEIVED PATIENT IN BED, EYES OPEN, NON-VERBAL. BREATHING EVEN AND UNLABORED. ON T-PIECE TRACH, 3L/MIN OXYGEN. TOLERATING WELL. NO SOB NOTED HOB ELEVATED 35 DEGREES. NO DISTRESS. SKIN WARM AND DRY. NOTED WITH RIGHT UPPER ARM MIIDLINE, RUNNING NS AT 90 CC/HR. NO INFILTRATION. NOTED WITH G-TUBE, INTACT, RUNNING JEVITY AT 60 CC/HR. TOLERATING WELL. MINIMAL RESIDUAL. NOTED WITH SHINE CATHETER. DRAINING YELLOW URINE. NO HEMATURIA. NOTED WITH VERY MINIMAL RED BLOOD COMING OUT OF [place]. PER AM SHIFT, SHINE WAS CHANGED. SITE CLEANSED WITH NS, PAT DRY. WILL CONTINUE TO MONITOR. BED LOW, IN LOCKED POSITION. CALL LIGHT WITHIN REACH.
[2021-06-06 20:27] LABS: HEMOGLOBIN 8.2 g/dL (13.5-17.5)
[2021-06-06] MEDS: SENNOSIDES 8.6 MG TABLET GT SCH (21:55)
[2021-06-07] VITALS: BP 126/72
[2021-06-07] MEDS: IPRATROPIUM NEB FS 0.5 MG/2.5 ML AMPUL.NEB NEB SCH ×4 (01:46→19:53)
[2021-06-07 04:00] VITALS: BP 107/70
[2021-06-07 06:29] LABS: BASOPHILS % (AUTO) 0.5 % (0.0-2.0); EOSINOPHILS % (AUTO) 8.4 % (0.0-6.0); HEMATOCRIT 26 % (39-51); HEMOGLOBIN 8.2 g/dL (13.5-17.5); LYMPHOCYTES # (AUTO) 1.3 K/uL (0.8-4.8); LYMPHOCYTES % (AUTO) 17.4 % (20.0-44.0); MEAN CORPUSCULAR HGB CONC 32 g/dl (31.0-36.0); MEAN CORPUSCULAR VOLUME 82 fL (80-96); MONOCYTES # (AUTO) 0.7 K/uL (0.1-1.30); MONOCYTES % (AUTO) 8.9 % (2.0-12.0); NEUTROPHILS # (AUTO) 4.7 K/uL (1.8-8.9); NEUTROPHILS % (AUTO) 64.8 % (43.0-81.0); PLATELET COUNT (AUTO) 398 K/uL (150-450); RED BLOOD CELL COUNT(AUTO) 3.12 MIL/uL (4.5-6.0); WHITE BLOOD COUNT (AUTO) 7.3 K/uL (4.3-11.0)
[2021-06-07] MEDS: IV NS 0.9% 1,000 ML IV PRN ×2 (06:38→16:23)
--- NOTE | 2021-06-07 07:30 | NUR ---
PACU NURSE AM NOTES PT IN BED, A/O X0, OPENS EYES TO LIGHT PAINFUL STIMULI, OBTUNDED, CONTRACTED. PATIENT ON T-PIECE AT 5L/MIN, O2 SAT 100%, BREATHING EVEN AND UNLABORED. NOT IN ANY DISTRESS, SUCTION IN PLACE. SR HR 89 ON MONITOR. NO SIGNS OF PAIN OR DISCOMFORT. AFSHAN MIDLINE WITH ONGOING NS AT 90 ML/HR INFUSING WELL.SITE CLEAR. ONGOING GTF OF JEVITY 1.2 AT 60 ML/HR, CHECKED FOR PLACEMENT, WELL TOLERATED, O RESIDUAL. SHINE CATH IN PLACE. DRAINING CLEAR YELLOW URINE ADEQUATE AMOUNT. SEE NURSING FLOWSHEET FOR SKIN ISSUES. WILL PERFORM PRESCRIBED WOUND TREATMENT. RIGHT WRIST RESTRAINT REMOVED AND CHECKED FOR CIRCULATION THEN Q 2 HOURS. WILL TURN AND REPOSITION Q 2HOURS. HOB ELEVATED. SAFETY MEASURES IN PLACE, BED LOW LOCKED, WILL CONT TO MONITOR. Addendum: 06/07/21 at 1818 by TERRA JOHN RN ADDENDUM: PATIENT WITH RIGHT WRIST RESTRAINT, RELEASED AND CHECKED FOR CIRCULATION THEN EVERY 2 HOURS
[2021-06-07 07:42] LABS: ALBUMIN 2.2 g/dL (3.4-5.0); BILIRUBIN,TOTAL 0.3 mg/dL (0.2-1.0); CALCIUM, SERUM 8.9 mg/dL (8.5-10.1); CREATININE 0.9 mg/dL (0.6-1.3); POTASSIUM 3.4 mmol/L (3.5-5.1); TOTAL PROTEIN, SERUM 7.5 g/dL (6.4-8.2)
[2021-06-07] MEDS: TOBRAMYCIN 80 MG/2 ML VIAL INH SCH ×2 (07:59→16:09)
[2021-06-07 08:00] VITALS: BP 115/67
[2021-06-07] MEDS: PANTOPRAZOLE 40 MG VIAL IV SCH ×2 (08:43→16:17)
[2021-06-07] MEDS: CHLORHEXIDINE GLUCONATE 15 ML UDC MM SCH ×2 (08:43→16:17)
[2021-06-07] MEDS: LEVETIRACETAM SOL (5 ML) 100 MG/ML UDC GT SCH ×2 (08:43→21:33)
[2021-06-07] MEDS: ASCORBIC ACID 500 MG TABLET GT SCH (08:43)
[2021-06-07] MEDS: GLYCOPYRROLATE 1 MG TABLET GT SCH ×2 (08:43→16:17)
[2021-06-07] MEDS: FERROUS SULFATE UDC 300 MG/5 ML UDC GT SCH ×2 (08:43→16:17)
[2021-06-07] MEDS: HYDROGEL DRESSING 90 GM TUBE TP SCH (08:44)
[2021-06-07] MEDS: PROSOURCE / PROSTAT (PYXIS) 30 ML UDC GT SCH ×4 (08:45→21:35)
[2021-06-07] MEDS: THERAHONEY GEL 1.5 OZ TUBE TP SCH (08:45)
[2021-06-07] MEDS ORDERED: TOBR40VI2 IV (09:29)
[2021-06-07] MEDS ORDERED: TOBR40VI2 INH (09:29)
[2021-06-07] MEDS ORDERED: POTASSIUM CHLORIDE 20 MEQ POWDER PACKET GT SCH (09:30)
--- NOTE | 2021-06-07 09:30 | NUR ---
RN NOTES DUE MEDS GIVEN
[2021-06-07] MEDS ORDERED: FLUC200T PO (09:32)
[2021-06-07 12:00] VITALS: BP 111/65
[2021-06-07 16:00] VITALS: BP 119/69
[2021-06-07] MEDS: TOBRAMYCIN IV SCH (16:13)
[2021-06-07] MEDS: D5W IV SCH (16:13)
--- NOTE | 2021-06-07 18:27 | NUR ---
BUSINESS INVESTOR CLOSING NOTES PT RESTING COMFORTABLY, A/O X0, OPENS EYES TO LIGHT PAINFUL STIMULI, OBTUNDED, CONTRACTED. PATIENT ON T-PIECE AT 5 L/MIN, O2 SAT 100%, BREATHING EVEN AND UNLABORED. NOT IN ANY DISTRESS, SUCTION IN PLACE. SR HR 80s TO 90s ON MONITOR. NO SIGNS OF PAIN OR DISCOMFORT. AFSHAN MIDLINE WITH ONGOING NS AT 90 ML/HR INFUSING WELL. SITE CLEAR. S/P EGD AND PEG PLACEMENT 06/02/[address] KIRBY. ONGOING GTF AT 60 ML/HR. O RESIDUAL. SHINE CATH IN PLACE. DRAINING CLEAR YELLOW URINE OUTPUT 1300 ML. PERFORMED AM CARE AND PRESCRIBED WOUND TREATMENT EARLIER. RIGHT WRIST RESTRAINT REMOVED AND CHECKED FOR CIRCULATION Q 2 HOURS. TURNED AND REPOSITIONED Q 2 HOURS. HOB ELEVATED. SAFETY MEASURES IN PLACE, BED LOW LOCKED, ALL NEEDS MET AT THIS TIME. WILL ENDORSE TO NEXT SHIFT FOR KARI.
[2021-06-07 20:00] VITALS: BP 115/74
--- NOTE | 2021-06-07 20:00 | NUR ---
PLASTICS WORKER NOTES RECEIVED PT IN BED, A/O X0, OPENS EYES TO LIGHT PAINFUL STIMULI, OBTUNDED, CONTRACTED. PATIENT ON T-PIECE AT 5L/MIN, O2 SAT 100%, NO SOB NO DISTRESS NOTED BREATHING EVEN AND UNLABORED,TELE MONITOR SR -99 AFSHAN MIDLINE WITH ONGOING NS AT 90 ML/HR INFUSING WELL.. ONGOING GTF OF JEVITY 1.2 AT 60 ML/HR, CHECKED FOR PLACEMENT, WELL TOLERATED, O RESIDUAL. SHINE CATH IN PLACE. DRAINING CLEAR YELLOW URINE OUTPUT.WITH RIGHT WRIST RESTRAINT REMOVED AND CHECKED FOR CIRCULATION THEN Q 2 HOURS. WILL TURN AND REPOSITION Q 2HOURS. HOB ELEVATED. SAFETY MEASURES IN PLACE, BED LOW LOCKED, WILL CONT TO MONITOR.
[2021-06-07 21:04] LABS: HEMOGLOBIN 8.4 g/dL (13.5-17.5)
[2021-06-07] MEDS: SENNOSIDES 8.6 MG TABLET GT SCH (21:34)
[2021-06-08] VITALS (7 sets, daily range): BP systolic 108–126; BP diastolic 70–78
[2021-06-08] MEDS: IPRATROPIUM NEB FS 0.5 MG/2.5 ML AMPUL.NEB NEB SCH ×4 (01:35→20:01)
[2021-06-08] MEDS: JEVITY 1.2 CAL 1,000 ML BOTTLE GT SCH (05:24)
[2021-06-08 06:50] LABS: CALCIUM, SERUM 8.8 mg/dL (8.5-10.1); CREATININE 0.8 mg/dL (0.6-1.3); POTASSIUM 3.5 mmol/L (3.5-5.1)
[2021-06-08] MEDS: IV NS 0.9% 1,000 ML IV PRN ×2 (06:59→18:22)
--- NOTE | 2021-06-08 07:27 | NUR ---
tele closing rn notes endorse to rn al for continuity of care, pts stable no charlene the whole shift
--- NOTE | 2021-06-08 07:30 | NUR ---
LABORATORY MONITOR AM NOTES PT IN BED, A/O X0, OPENS EYES TO LIGHT PAINFUL STIMULI, OBTUNDED, CONTRACTED. PATIENT ON T-PIECE AT 5L/MIN, O2 SAT 100%, BREATHING EVEN AND UNLABORED. NOT IN ANY DISTRESS, SUCTION IN PLACE. SR HR 89 ON MONITOR. NO SIGNS OF PAIN OR DISCOMFORT. AFSHAN MIDLINE WITH ONGOING NS AT 90 ML/HR INFUSING WELL.SITE CLEAR. ONGOING GTF OF JEVITY 1.2 AT 60 ML/HR, CHECKED FOR PLACEMENT, WELL TOLERATED, O RESIDUAL. SHINE CATH IN PLACE. DRAINING CLEAR YELLOW URINE ADEQUATE AMOUNT. SEE NURSING FLOWSHEET FOR SKIN ISSUES. WILL PERFORM PRESCRIBED WOUND TREATMENT. RIGHT WRIST RESTRAINT REMOVED AND CHECKED FOR CIRCULATION THEN Q 2 HOURS. WILL TURN AND REPOSITION Q 2HOURS. HOB ELEVATED. SAFETY MEASURES IN PLACE, BED LOW LOCKED, WILL CONT TO MONITOR. PATIENT WITH RIGHT WRIST RESTRAINT, RELEASED AND CHECKED FOR CIRCULATION THEN EVERY 2 HOURS
[2021-06-08] MEDS: TOBRAMYCIN 80 MG/2 ML VIAL INH SCH ×2 (07:31→14:00)
[2021-06-08] MEDS: PANTOPRAZOLE 40 MG VIAL IV SCH ×2 (09:05→16:55)
[2021-06-08] MEDS: CHLORHEXIDINE GLUCONATE 15 ML UDC MM SCH ×2 (09:05→16:55)
[2021-06-08] MEDS: LEVETIRACETAM SOL (5 ML) 100 MG/ML UDC GT SCH ×2 (09:05→21:24)
[2021-06-08] MEDS: GLYCOPYRROLATE 1 MG TABLET GT SCH ×2 (09:06→16:55)
[2021-06-08] MEDS: PROSOURCE / PROSTAT (PYXIS) 30 ML UDC GT SCH ×4 (09:06→21:24)
[2021-06-08] MEDS: HYDROGEL DRESSING 90 GM TUBE TP SCH (09:06)
[2021-06-08] MEDS: FERROUS SULFATE UDC 300 MG/5 ML UDC GT SCH ×2 (09:06→16:55)
[2021-06-08] MEDS: ASCORBIC ACID 500 MG TABLET GT SCH (09:06)
[2021-06-08] MEDS: THERAHONEY GEL 1.5 OZ TUBE TP SCH (09:07)
--- NOTE | 2021-06-08 09:30 | NUR ---
RN NOTES DUE MEDS GIVEN
[2021-06-08] MEDS: D5W IV SCH (15:05)
[2021-06-08] MEDS: TOBRAMYCIN IV SCH (15:05)
--- NOTE | 2021-06-08 16:40 | NUR ---
RN NOTES VERIFIED WITH DR. GONZALEZ, PATIENT'S SHINE CATHETER WAS CHANGED LAST 06/06/2021. PER HIM, CANCEL NEW ORDER TO REPLACE FOELY CATHETER.
--- NOTE | 2021-06-08 18:54 | NUR ---
CULINARY ARTS TEACHER CLOSING NOTES PT RESTING COMFORTABLY, A/O X0, OPENS EYES TO LIGHT PAINFUL STIMULI, OBTUNDED, CONTRACTED. PATIENT ON T-PIECE AT 5 L/MIN, O2 SAT 100%, BREATHING EVEN AND UNLABORED. NOT IN ANY DISTRESS, SUCTION IN PLACE. SR HR 80s TO 90s ON MONITOR. NO SIGNS OF PAIN OR DISCOMFORT. AFSHAN MIDLINE WITH ONGOING NS AT 90 ML/HR INFUSING WELL. SITE CLEAR. S/P EGD AND PEG PLACEMENT 06/02/[address] KIRBY. ONGOING GTF AT 60 ML/HR. O RESIDUAL. SHINE CATH IN PLACE. DRAINING CLEAR YELLOW URINE OUTPUT 1800 ML. PERFORMED PM CARE AND PRESCRIBED WOUND TREATMENT EARLIER. RIGHT WRIST RESTRAINT REMOVED AND CHECKED FOR CIRCULATION Q 2 HOURS. TURNED AND REPOSITIONED Q 2 HOURS. HOB ELEVATED. SAFETY MEASURES IN PLACE, BED LOW LOCKED, ALL NEEDS MET AT THIS TIME. WILL ENDORSE TO NEXT SHIFT FOR KARI. STILL AWAITING PLACEMENT
[2021-06-08] MEDS: SENNOSIDES 8.6 MG TABLET GT SCH (21:23)
[2021-06-09] VITALS: BP 125/83
[2021-06-09] MEDS: IPRATROPIUM NEB FS 0.5 MG/2.5 ML AMPUL.NEB NEB SCH ×4 (01:45→19:48)
[2021-06-09 04:00] VITALS: BP_SYST 108; BP_SYST 118; BP_DIAS 67; BP_DIAS 70
--- NOTE | 2021-06-09 04:25 | NUR ---
RN notes Eyes closed,, in bed resting comfortably. No distress noted breathing even and unlabored. On T-piece via trach at 6lpm tolerating well. Alert to self, noted with eye contact. Unble to verbally communicate needs or follows command. No complaint of pain or discomfort. No significant change of condition. Kept clean and dry. Will endorse to next shift for continuity of care.
[2021-06-09] MEDS: IV NS 0.9% 1,000 ML IV PRN ×2 (06:04→18:08)
[2021-06-09 07:12] LABS: CALCIUM, SERUM 8.7 mg/dL (8.5-10.1); CREATININE 0.8 mg/dL (0.6-1.3); POTASSIUM 3.6 mmol/L (3.5-5.1)
--- NOTE | 2021-06-09 07:37 | NUR ---
[facility] OPENING NOTES RECEIVED PATIENT IN BED RESTING COMFORTABLY, A/O X0, OPENS EYES TO LIGHT PAINFUL STIMULI, OBTUNDED, CONTRACTED. PATIENT ON T-PIECE AT 5 L/MIN, O2 SAT 100%, BREATHING EVEN AND UNLABORED. NOT IN ANY DISTRESS, SUCTION IN PLACE. CURRENT TELE MONITOR WITH A READING OF SB-SR 59-62 BPM. NO SIGNS OF PAIN OR DISCOMFORT. AFSHAN MIDLINE WITH ONGOING NS AT 90 ML/HR INFUSING WELL. SITE CLEAR. G-TUBE RUNNING JEVITY 1.2 @60 MLS/HR. SHINE CATH IN PLACE. DRAINING CLEAR YELLOW URINE. RIGHT WRIST RESTRAINT PRESENT. HOB ELEVATED. SAFETY MEASURES IN PLACE, BED IN LOW POSITION AND LOCKED, RAILS UP X2, CALL LIGHT WITHIN REACH. WILL CONTINUE TO MONITOR PATIENT.
[2021-06-09] MEDS: TOBRAMYCIN 80 MG/2 ML VIAL INH SCH (08:07)
[2021-06-09] MEDS: ASCORBIC ACID 500 MG TABLET GT SCH (08:07)
[2021-06-09] MEDS: LEVETIRACETAM SOL (5 ML) 100 MG/ML UDC GT SCH ×2 (08:07→21:18)
[2021-06-09] MEDS: GLYCOPYRROLATE 1 MG TABLET GT SCH ×2 (08:07→17:02)
[2021-06-09] MEDS: PANTOPRAZOLE 40 MG VIAL IV SCH (08:07)
[2021-06-09] MEDS: CHLORHEXIDINE GLUCONATE 15 ML UDC MM SCH ×2 (08:07→17:00)
[2021-06-09] MEDS: FERROUS SULFATE UDC 300 MG/5 ML UDC GT SCH ×2 (08:07→17:02)
[2021-06-09] MEDS: PROSOURCE / PROSTAT (PYXIS) 30 ML UDC GT SCH ×4 (08:09→21:18)
[2021-06-09] MEDS: THERAHONEY GEL 1.5 OZ TUBE TP SCH (08:15)
[2021-06-09] MEDS: HYDROGEL DRESSING 90 GM TUBE TP SCH (08:15)
[2021-06-09 09:01] VITALS: BP 116/63
[2021-06-09 12:22] VITALS: BP 123/76
[2021-06-09] MEDS: D5W IV SCH (16:09)
[2021-06-09] MEDS: TOBRAMYCIN IV SCH (16:09)
[2021-06-09] MEDS: PANTOPRAZOLE 40 MG/PACK PACK GT SCH (17:02)
[2021-06-09 17:56] VITALS: BP 146/75
--- NOTE | 2021-06-09 18:47 | NUR ---
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 PATIENT ON T-PIECE AT 5 L/MIN, O2 SAT 100%, BREATHING EVEN AND UNLABORED DURING SHIFT. NOT IN ANY DISTRESS, SUCTION IN PLACE. CURRENT TELE MONITOR WITH A READING OF SB-SR 60S-70S BPM. NO SIGNS OF PAIN OR DISCOMFORT. AFSHAN MIDLINE WITH ONGOING NS AT 90 ML/HR INFUSING WELL. SITE CLEAR. G-TUBE RUNNING JEVITY 1.2 @60 MLS/HR. SHINE CATH IN PLACE WITH 3000 MLS OUTPUT DRAINING CLEAR YELLOW URINE. RIGHT WRIST RESTRAINT PRESENT. HOB ELEVATED. SAFETY MEASURES IN PLACE, BED IN LOW POSITION AND LOCKED, RAILS UP X2, CALL LIGHT WITHIN REACH. WILL ENDORSE TO [facility] [facility] NURSE FOR KARI.
[2021-06-09 20:00] VITALS: BP 121/78
[2021-06-09] MEDS: SENNOSIDES 8.6 MG TABLET GT SCH (21:18)
[2021-06-10] VITALS: BP 119/87
[2021-06-10] MEDS: IPRATROPIUM NEB FS 0.5 MG/2.5 ML AMPUL.NEB NEB SCH ×4 (02:18→20:17)
[2021-06-10 04:00] VITALS: BP 134/74
[2021-06-10] MEDS: IV NS 0.9% 1,000 ML IV PRN ×2 (06:16→17:24)
--- NOTE | 2021-06-10 06:20 | NUR ---
RN notes Received patient in bed, eyes closed, resting comfortabl. No distress noted breathing even and unlabored. On T-piece via trach at 6lpm tolerating well. Obtunded, noted with no eye contact. No physical manifestation of pain or discomfort. No significant change of condition. Kept clean and dry. Will endorse to next shift for continuity of care.
[2021-06-10 07:16] LABS: BASOPHILS % (AUTO) 0.6 % (0.0-2.0); EOSINOPHILS % (AUTO) 8.6 % (0.0-6.0); HEMATOCRIT 30 % (39-51); HEMOGLOBIN 9.4 g/dL (13.5-17.5); LYMPHOCYTES # (AUTO) 1.5 K/uL (0.8-4.8); LYMPHOCYTES % (AUTO) 21.6 % (20.0-44.0); MEAN CORPUSCULAR HGB CONC 31 g/dl (31.0-36.0); MEAN CORPUSCULAR VOLUME 84 fL (80-96); MONOCYTES # (AUTO) 0.5 K/uL (0.1-1.30); MONOCYTES % (AUTO) 7.4 % (2.0-12.0); NEUTROPHILS # (AUTO) 4.3 K/uL (1.8-8.9); NEUTROPHILS % (AUTO) 61.8 % (43.0-81.0); PLATELET COUNT (AUTO) 459 K/uL (150-450); RED BLOOD CELL COUNT(AUTO) 3.59 MIL/uL (4.5-6.0)
--- NOTE | 2021-06-10 07:19 | NUR ---
telegraph editor notes Received patient in bed, eyes open, resting comfortably. No distress noted, breathing even and unlabored. On 5l trach to t piece to cooler aerosol, tolerating well. . No s\s of pain or discomfort. Kept clean and dry. on tele monitor sr hr 69 at this time, rt upper arm mid line in place , with Jevity at 60 ml per hour via g tube ,on ivf as ordered , bed in lowest and locked position, will cont t monitor closely
[2021-06-10 07:47] LABS: CALCIUM, SERUM 9.1 mg/dL (8.5-10.1); CREATININE 0.9 mg/dL (0.6-1.3); POTASSIUM 3.7 mmol/L (3.5-5.1)
[2021-06-10 08:00] VITALS: BP 124/90
[2021-06-10] MEDS: CHLORHEXIDINE GLUCONATE 15 ML UDC MM SCH ×2 (08:07→16:19)
[2021-06-10] MEDS: LEVETIRACETAM SOL (5 ML) 100 MG/ML UDC GT SCH ×2 (08:07→22:34)
[2021-06-10] MEDS: PANTOPRAZOLE 40 MG/PACK PACK GT SCH ×2 (08:07→16:19)
[2021-06-10] MEDS: ASCORBIC ACID 500 MG TABLET GT SCH (08:07)
[2021-06-10] MEDS: GLYCOPYRROLATE 1 MG TABLET GT SCH ×2 (08:07→16:19)
[2021-06-10] MEDS: PROSOURCE / PROSTAT (PYXIS) 30 ML UDC GT SCH ×4 (08:07→22:34)
[2021-06-10] MEDS: FERROUS SULFATE UDC 300 MG/5 ML UDC GT SCH ×2 (08:07→16:19)
[2021-06-10] MEDS: THERAHONEY GEL 1.5 OZ TUBE TP SCH (08:08)
[2021-06-10] MEDS: HYDROGEL DRESSING 90 GM TUBE TP SCH (08:08)
--- NOTE | 2021-06-10 09:36 | NUR ---
MEAT SEAFOOD ASSOCIATE NOTE NOTED RT UPPER ARM MID LINE IS NOT WORKING AND PARTIALLY OUT , PER DR MARIANNA HOGAN TO REPLACE, MID LINE AT BEDSIDE, NEW MID LINE ON LT UPPER ARM PLACED, WILL CONT TO MONITOR
[2021-06-10 12:00] VITALS: BP 128/74
--- NOTE | 2021-06-10 14:38 | NUR ---
television parts tester note turn reposition , all needs attended. keep clean dry, cont on5, t piece to cooler aerosol by trach , will monitor closely
[2021-06-10] MEDS: TOBRAMYCIN 80 MG/2 ML VIAL INH SCH ×3 (15:22→15:28)
[2021-06-10] MEDS: TOBRAMYCIN IV SCH (15:39)
[2021-06-10] MEDS: D5W IV SCH (15:39)
[2021-06-10 16:00] VITALS: BP 141/77
[2021-06-10] MEDS: JEVITY 1.2 CAL 1,000 ML BOTTLE GT SCH (17:39)
--- NOTE | 2021-06-10 18:29 | NUR ---
telephone maintenance mechanic note patient in bed with trach to t piece cooler aerosol 5l , no sob noted at this time, trach suction done keep clean dry, keep hob elevated at all time , on g tube feeding as ordered, left upper arm mid line in place and flushed well , on ivf as ordered, bed in lowest and locked position ,call light within reach
--- NOTE | 2021-06-10 19:07 | NUR ---
ernst wiley note hd complected, 2l of fluids removed, Addendum: 06/10/21 at 1908 by SASKIA GIBSON RN wrong charting
--- NOTE | 2021-06-10 19:08 | NUR ---
television operator note unable to remove soft restrain still at risk to remove all lines
[2021-06-10 20:00] VITALS: BP 127/81
[2021-06-10] MEDS: SENNOSIDES 8.6 MG TABLET GT SCH (22:34)
[2021-06-11] VITALS: BP 136/84
[2021-06-11] MEDS: IPRATROPIUM NEB FS 0.5 MG/2.5 ML AMPUL.NEB NEB SCH ×3 (01:30→13:57)
[2021-06-11 04:00] VITALS: BP 111/62
[2021-06-11] MEDS: IV NS 0.9% 1,000 ML IV PRN (05:30)
--- NOTE | 2021-06-11 06:40 | NUR ---
RN NOTE PATIENT RESTING IN BED. OBTUNDED. ON T-PIECE @5L. RESPIRATIONS ARE EVEN AND UNLABORED. NO S/S SOB NOTED. INFREQUENT COUGH, SECRETIONS ARE YELLOW AND THICK. NO S/S PAIN NOTED. AFEBRILE. VSS. SINUS RHYTHM ON THE MONITOR. SHINE CATHETER PRESENT, DRAINING TO GRAVITY, URINE IS YELLOW AND CLEAR, OUTPUT 1100ML. 2 BM THIS SHIFT, FORMED. WOUND CARE PROVIDED, PHOTOS TAKEN AND PLACED IN CHART. RIGHT WRIST RESTRAINT, NO REDNESS, GOOD CAP REFILL. GTUBE, NO RESIDUAL, JEVITY @60ML, STOPPED AT 0400, FLUSHED WITH NO RESISTANCE, TURNS ON AT 0800. LANIE MIDLINE RUNNING NS@90ML/HR. BED IS LOW AND LOCKED, HOB ELEVATED IN SEMI FOWLERS, SIDE RAILS UP X2, SPECIALTY MATRASS . SAFETY ALARMS IN PLACE.
[2021-06-11 06:50] LABS: BASOPHILS % (AUTO) 0.5 % (0.0-2.0); HEMATOCRIT 30 % (39-51); HEMOGLOBIN 9.3 g/dL (13.5-17.5); LYMPHOCYTES # (AUTO) 1.5 K/uL (0.8-4.8); LYMPHOCYTES % (AUTO) 21.1 % (20.0-44.0); MEAN CORPUSCULAR HGB CONC 32 g/dl (31.0-36.0); MEAN CORPUSCULAR VOLUME 82 fL (80-96); MONOCYTES # (AUTO) 0.4 K/uL (0.1-1.30); MONOCYTES % (AUTO) 5.3 % (2.0-12.0); NEUTROPHILS # (AUTO) 4.4 K/uL (1.8-8.9); NEUTROPHILS % (AUTO) 64.1 % (43.0-81.0); PLATELET COUNT (AUTO) 467 K/uL (150-450); RED BLOOD CELL COUNT(AUTO) 3.62 MIL/uL (4.5-6.0); WHITE BLOOD COUNT (AUTO) 6.9 K/uL (4.3-11.0)
[2021-06-11 07:12] LABS: CALCIUM, SERUM 9.3 mg/dL (8.5-10.1); CREATININE 0.8 mg/dL (0.6-1.3); POTASSIUM 3.5 mmol/L (3.5-5.1)
--- NOTE | 2021-06-11 07:30 | NUR ---
STAMP CLASSIFIER AM NOTES PT IN BED, A/O X0, OPENS EYES TO LIGHT PAINFUL STIMULI, OBTUNDED, CONTRACTED. PATIENT ON T-PIECE AT 5L/MIN, O2 SAT 100%, BREATHING EVEN AND UNLABORED. NOT IN ANY DISTRESS, SUCTION IN PLACE. SR HR 62 ON MONITOR. NO SIGNS OF PAIN OR DISCOMFORT. AFSHAN MIDLINE WITH ONGOING NS AT 90 ML/HR INFUSING WELL.SITE CLEAR. ONGOING GTF OF JEVITY 1.2 AT 60 ML/HR X 20HRS. CHECKED FOR PLACEMENT, WELL TOLERATED, O RESIDUAL. SHINE CATH IN PLACE. DRAINING CLEAR YELLOW URINE ADEQUATE AMOUNT. SEE NURSING FLOWSHEET FOR SKIN ISSUES. WILL PERFORM PRESCRIBED WOUND TREATMENT. RIGHT WRIST RESTRAINT REMOVED AND CHECKED FOR CIRCULATION THEN Q 2 HOURS. WILL TURN AND REPOSITION Q 2HOURS. HOB ELEVATED. SAFETY MEASURES IN PLACE, BED LOW LOCKED, WILL CONT TO MONITOR. PATIENT WITH RIGHT WRIST RESTRAINT, RELEASED AND CHECKED FOR CIRCULATION THEN EVERY 2 HOURS
--- NOTE | 2021-06-11 07:30 | NUR ---
SYNTHETIC FILAMENT SPINNER AM NOTES PT IN BED, A/O X0, OPENS EYES TO LIGHT PAINFUL STIMULI, OBTUNDED, CONTRACTED. PATIENT ON T-PIECE AT 5L/MIN, O2 SAT 100%, BREATHING EVEN AND UNLABORED. NOT IN ANY DISTRESS, SUCTION IN PLACE. SR HR 67 ON MONITOR. NO SIGNS OF PAIN OR DISCOMFORT. AFSHAN MIDLINE WITH ONGOING NS AT 90 ML/HR INFUSING WELL.SITE CLEAR. ONGOING GTF OF JEVITY 1.2 AT 60 ML/HR, CHECKED FOR PLACEMENT, WELL TOLERATED, O RESIDUAL. SHINE CATH IN PLACE. DRAINING CLEAR YELLOW URINE ADEQUATE AMOUNT. SEE NURSING FLOWSHEET FOR SKIN ISSUES. WILL PERFORM PRESCRIBED WOUND TREATMENT. RIGHT WRIST RESTRAINT REMOVED AND CHECKED FOR CIRCULATION THEN Q 2 HOURS. WILL TURN AND REPOSITION Q 2HOURS. HOB ELEVATED. SAFETY MEASURES IN PLACE, BED LOW LOCKED, WILL CONT TO MONITOR. PATIENT WITH RIGHT WRIST RESTRAINT, RELEASED AND CHECKED FOR CIRCULATION THEN EVERY 2 HOURS
[2021-06-11 08:00] VITALS: BP 125/77
[2021-06-11] MEDS: TOBRAMYCIN 80 MG/2 ML VIAL INH SCH (08:01)
[2021-06-11] MEDS: LEVETIRACETAM SOL (5 ML) 100 MG/ML UDC GT SCH (08:40)
[2021-06-11] MEDS: PANTOPRAZOLE 40 MG/PACK PACK GT SCH (08:41)
[2021-06-11] MEDS: FERROUS SULFATE UDC 300 MG/5 ML UDC GT SCH (08:41)
[2021-06-11] MEDS: CHLORHEXIDINE GLUCONATE 15 ML UDC MM SCH (08:41)
[2021-06-11] MEDS: PROSOURCE / PROSTAT (PYXIS) 30 ML UDC GT SCH ×2 (08:41→12:17)
[2021-06-11] MEDS: ASCORBIC ACID 500 MG TABLET GT SCH (08:41)
[2021-06-11] MEDS: GLYCOPYRROLATE 1 MG TABLET GT SCH (08:41)
[2021-06-11] MEDS: HYDROGEL DRESSING 90 GM TUBE TP SCH (08:42)
[2021-06-11] MEDS: THERAHONEY GEL 1.5 OZ TUBE TP SCH (08:42)
--- NOTE | 2021-06-11 09:30 | NUR ---
RN NOTES DUE MEDS GIVEN
--- NOTE | 2021-06-11 09:30 | NUR ---
KARI NOTES DUE MEDS GIVEN BP RECHECKED 131/79 Addendum: 06/11/21 at 1055 by TERRA JOHN RN CORRECTION; DISREGARD THIS DOCUMENTATION INTENDED FOR ANOTHER PATIENT
[2021-06-11 12:00] VITALS: BP 138/88
--- NOTE | 2021-06-11 14:27 | NUR ---
RN NOTES REPORT GIVEN TO EDITA AT FACILTY
[2021-06-11 16:00] VITALS: BP 143/89
--- NOTE | 2021-06-11 16:29 | NUR ---
TUBE TRAILER FILLER NOTES PATIENT DISCHARGED TO [facility]. STABLE. PROVIDED DC INSTRUCTION, MED RECON AND HEALTH TEACHINGS. PHOTOS OF SKIN ISSUES ON FILE. IV ACCESS TO LANIE REMOVED, PRESSURE APPLIED, NO BLEEDING DRESSING IN PLACE. GT FLUSHED WITH 250 ML WATER AND CLAMPED. SHINE CATH IN PLACE. DRAINING YELLOW URINE ADEQUATE AMOUNT. MITTEN TO RIGHT HAND. REPORT GIVEN TO FACILITY STAFF EARLIER. NO BELONGINGS. ALL PAPERWORKS SIGNED. PICKED UP BY 2 AMBULANCE PERSONNEL AND WILL TRANSPORT PATIENT TO FACILITY VIA AMBULANCE
== END 2021-06-11 16:08 | DRG 710 ==
LOC: ER 22:41 → TELE-TD 05-28 03:04 → TELE1 05-30 16:22
PROVIDERS: ADMIT Hospitalist; ATTEND Internal Medicine
PROC: 05HB33Z Insertion of Infusion Device into Right Basilic Vein, Percutaneous Approach (ICD-10-PCS; 2021-05-28)
PROC: 30233N1 Transfusion of Nonautologous Red Blood Cells into Peripheral Vein, Percutaneous Approach (ICD-10-PCS; 2021-06-01)
PROC: 0DH63UZ Insertion of Feeding Device into Stomach, Percutaneous Approach (ICD-10-PCS; principal; 2021-06-02)
PROC: 0D20XUZ Change Feeding Device in Upper Intestinal Tract, External Approach (ICD-10-PCS; 2021-06-02)
PROC: 0DJ08ZZ Inspection of Upper Intestinal Tract, Via Natural or Artificial Opening Endoscopic (ICD-10-PCS; 2021-06-02)
PROC: 0KBN0ZZ Excision of Right Hip Muscle, Open Approach (ICD-10-PCS; 2021-06-04)
PROC: 0JB90ZZ Excision of Buttock Subcutaneous Tissue and Fascia, Open Approach (ICD-10-PCS; 2021-06-04)
PROC: 0JBR0ZZ Excision of Left Foot Subcutaneous Tissue and Fascia, Open Approach (ICD-10-PCS; 2021-06-05)
PROC: 05HA33Z Insertion of Infusion Device into Left Brachial Vein, Percutaneous Approach (ICD-10-PCS; 2021-06-10)
PROC: 0KBN0ZZ Excision of Right Hip Muscle, Open Approach (ICD-10-PCS; 2021-06-11)
PROC: 0JB90ZZ Excision of Buttock Subcutaneous Tissue and Fascia, Open Approach (ICD-10-PCS; 2021-06-11)
DX: A41.9 Sepsis, unspecified organism (principal); J96.21 Acute and chronic respiratory failure with hypoxia; J95.851 Ventilator associated pneumonia; G93.40 Encephalopathy, unspecified; L89.314 Pressure ulcer of right buttock, stage 4; L89.323 Pressure ulcer of left buttock, stage 3; E44.0 Moderate protein-calorie malnutrition; R40.3 Persistent vegetative state; L89.893 Pressure ulcer of other site, stage 3; B48.8 Other specified mycoses; E87.2 Acidosis; G91.9 Hydrocephalus, unspecified; K94.23 Gastrostomy malfunction; D62 Acute posthemorrhagic anemia; L89.159 Pressure ulcer of sacral region, unspecified stage; E88.09 Other disorders of plasma-protein metabolism, not elsewhere classified; Z93.0 Tracheostomy status; G40.909 Epilepsy, unspecified, not intractable, without status epilepticus; J44.0 Chronic obstructive pulmonary disease with (acute) lower respiratory infection; Z20.822 Contact with and (suspected) exposure to COVID-19; K29.70 Gastritis, unspecified, without bleeding; R13.10 Dysphagia, unspecified; K21.9 Gastro-esophageal reflux disease without esophagitis; R53.2 Functional quadriplegia; I69.398 Other sequelae of cerebral infarction; R65.20 Severe sepsis without septic shock; Z22.322 Carrier or suspected carrier of Methicillin resistant Staphylococcus aureus; Z68.1 Body mass index [BMI] 19.9 or less, adult; Z87.820 Personal history of traumatic brain injury; S06.9X0S Unspecified intracranial injury without loss of consciousness, sequela; X58.XXXS Exposure to other specified factors, sequela
CPT/HCPCS: 31720; 36410; 36415; 43246; 71045-TC; 80048-TC; 80053-TC; 80076-TC; 80202-TC; 81001; 82248-TC; 82962-TC; 83605-TC; 83735-TC; 84100-TC; 84132-TC; 84484-TC; 85025-TC; 85027-TC; 85730-TC; 86850-TC; 87040-TC; 87070-TC; 87081-TC; 87086-TC; 87186-TC; 94640-TC; 94760-TC; 94762-TC; 94799-TC; A4623; A6248; A6253; A6403; A7526; C9113; C9803; G0378; J1650; J1953; J2185; J2543; J2704; J3260; J3370; J3480; J3490; J7030; J7050; J7060; P9016; U0003